=== PATIENT | male | born 1945 | race Caucasian/White ===

== ENCOUNTER → 2016-08-20 | Outpatient (CLI) | payer MEDICARE, BC, OTHER ==
[2016-08-20 11:17] LABS: HEMATOCRIT 27.6 % (37.9-51.0); HEMOGLOBIN 8.3 g/dL (13.5-17.0); HGB HCT DIFFERENCE -2.7; MEAN CORPUSCULAR HEMOGLOBIN 24.5 pg (27.0-33.4); MEAN CORPUSCULAR VOLUME 82 fl (80-97); RED BLOOD COUNT 3.38 10^6/uL (4.35-5.55); RED CELL DISTRIBUTION WIDTH 16.4 % (11.5-14.0); WHITE BLOOD COUNT 5.5 10^3/uL (4.0-10.5)
[2016-08-20 11:19] LABS: APPEARANCE,URINE CLEAR; BILIRUBIN,URINE NEGATIVE (NEGATIVE); GLUCOSE, URINE NEGATIVE (NEGATIVE); KETONES,URINE NEGATIVE (NEGATIVE); LEUKOCYTE ESTERASE,URINE NEGATIVE (NEGATIVE); NITRITE,URINE NEGATIVE (NEGATIVE); PROTEIN,URINE NEGATIVE (NEGATIVE); URINE SPECIFIC GRAVITY 1.018; UROBILINOGEN,URINE NEGATIVE mg/dL (<2.0)
[2016-08-20 11:52] LABS: ANION GAP 11 (5-19); BLOOD UREA NITROGEN 28 mg/dL (7-20); CALCIUM 9.5 mg/dL (8.4-10.2); CARBON DIOXIDE 30 mmol/L (22-30); CHLORIDE 100 mmol/L (98-107); CREATININE RESULT 1.49 mg/dL (0.52-1.25); GLUCOSE 96 mg/dL (75-110); POTASSIUM 4.6 mmol/L (3.6-5.0); SODIUM 140.8 mmol/L (137-145)
== END ==
LOC: OD 09:54
PROVIDERS: ATTEND Internal Medicine Nephrology
DX: E11.22 Type 2 diabetes mellitus with diabetic chronic kidney disease (principal); I12.9 Hypertensive chronic kidney disease with stage 1 through stage 4 chronic kidney disease, or unspecified chronic kidney disease; N18.3 Chronic kidney disease, stage 3 (moderate)
CPT/HCPCS: 36415; 80048; 81001; 85027

== ENCOUNTER → 2016-09-17 | Outpatient (CLI) | payer MEDICARE, BC, OTHER ==
[2016-09-17 11:24] LABS: ABSOLUTE BASOPHILS # (AUTO) 0.1 10^3/uL (0.0-0.2); ABSOLUTE EOSINOPHILS # (AUTO) 0.3 10^3/uL (0.0-0.6); ABSOLUTE LYMPHOCYTES (AUTO) 0.6 10^3/uL (0.5-4.7); ABSOLUTE MONOCYTES (AUTO) 0.4 10^3/uL (0.1-1.4); ABSOLUTE NEUT (AUTO) 3.7 10^3/uL (1.7-8.2); HEMATOCRIT 29.3 % (37.9-51.0); HEMOGLOBIN 9.4 g/dL (13.5-17.0); HGB HCT DIFFERENCE -1.1; LYMPHOCYTES % (AUTO) 12.6 % (13-45); MEAN CORPUSCULAR HEMOGLOBIN 26.7 pg (27.0-33.4); MONOCYTES % (AUTO) 7.3 % (3-13); RED BLOOD COUNT 3.51 10^6/uL (4.35-5.55); RED CELL DISTRIBUTION WIDTH 25.9 % (11.5-14.0); SEGMENTED NEUTROPHILS % (AUTO) 73.1 % (42-78)
[2016-09-17 11:49] LABS: MEAN CORPUSCULAR VOLUME 83 fl (80-97)
[2016-09-17 11:51] LABS: ANISOCYTOSIS 3+; OVALOCYTES 1+; POIKILOCYTOSIS 1+; POLYCHROMASIA 1+; TEAR DROP CELLS SLIGHT
== END ==
LOC: OD 09:58
PROVIDERS: ATTEND Internal Medicine
DX: D64.9 Anemia, unspecified (principal); K92.2 Gastrointestinal hemorrhage, unspecified
CPT/HCPCS: 36415; 85025

== ENCOUNTER → 2017-05-10 | Outpatient (CLI) | payer MEDICARE, BC, OTHER ==
[2017-05-10 11:12] LABS: ABSOLUTE BASOPHILS # (AUTO) 0.1 10^3/uL (0.0-0.2); ABSOLUTE EOSINOPHILS # (AUTO) 0.3 10^3/uL (0.0-0.6); ABSOLUTE LYMPHOCYTES (AUTO) 0.7 10^3/uL (0.5-4.7); ABSOLUTE MONOCYTES (AUTO) 0.3 10^3/uL (0.1-1.4); ABSOLUTE NEUT (AUTO) 3.2 10^3/uL (1.7-8.2); BASOPHILS % (AUTO) 1.3 % (0-2); EOSINOPHILS % (AUTO) 6.6 % (0-6); HEMATOCRIT 33.3 % (37.9-51.0); HEMOGLOBIN 11.2 g/dL (13.5-17.0); HGB HCT DIFFERENCE 0.3; LYMPHOCYTES % (AUTO) 15.4 % (13-45); MEAN CORPUSCULAR HEMOGLOBIN 29.2 pg (27.0-33.4); MEAN CORPUSCULAR HGB CONC 33.7 g/dL (32.0-36.0); MEAN CORPUSCULAR VOLUME 87 fl (80-97); MONOCYTES % (AUTO) 6.5 % (3-13); RED BLOOD COUNT 3.85 10^6/uL (4.35-5.55); RED CELL DISTRIBUTION WIDTH 13.9 % (11.5-14.0); SEGMENTED NEUTROPHILS % (AUTO) 70.2 % (42-78); WHITE BLOOD COUNT 4.5 10^3/uL (4.0-10.5)
[2017-05-10 11:31] LABS: ALANINE AMINOTRANSFERASE 32 U/L (21-72); ALBUMIN 4.2 g/dL (3.5-5.0); ALKALINE PHOSPHATASE 36 U/L (38-126); ANION GAP 9 (5-19); ASPARTATE AMINO TRANSFERASE 22 U/L (17-59); BILIRUBIN,DIRECT 0.4 mg/dL (0.0-0.4); BILIRUBIN,TOTAL 0.4 mg/dL (0.2-1.3); BLOOD UREA NITROGEN 30 mg/dL (7-20); CALCIUM 10.1 mg/dL (8.4-10.2); CARBON DIOXIDE 30 mmol/L (22-30); CHLORIDE 103 mmol/L (98-107); CHOLESTEROL 127.54 mg/dL (0-200); CREATININE RESULT 1.07 mg/dL (0.52-1.25); Direct HDL 31 mg/dL (>40); GLUCOSE 156 mg/dL (75-110); POTASSIUM 4.9 mmol/L (3.6-5.0); SODIUM 141.7 mmol/L (137-145); TOTAL PROTEIN 6.8 g/dL (6.3-8.2); TRIGLYCERIDES 122 mg/dL (<150)
[2017-05-10 11:51] LABS: DIRECT LDL 86 mg/dL (<100)
== END ==
LOC: OD 10:04
PROVIDERS: ATTEND Internal Medicine
DX: E11.9 Type 2 diabetes mellitus without complications (principal); N18.9 Chronic kidney disease, unspecified; D64.9 Anemia, unspecified; E78.5 Hyperlipidemia, unspecified; I25.10 Atherosclerotic heart disease of native coronary artery without angina pectoris
CPT/HCPCS: 36415; 80053; 80061; 82043; 83036; 84443; 85025

== ENCOUNTER 2017-06-29 08:07 | Outpatient (CLI) | payer MEDICARE, BC, OTHER ==
[~2017-06-29 08:07] MED LIST: FERUMOXYTOL (NON-ESRD) 510 MG/NS 100 ML IV PRN; NORMAL SALINE 250 ML IV PRN
[2017-06-29 08:38] VITALS: BP 163/56
== END 2017-06-29 09:53 | disposition home or self-care (01) ==
LOC: II 08:07 → 5TH 08:33 → II 09:53
PROVIDERS: ATTEND Internal Medicine
PROC: 3E033GC Introduction of Other Therapeutic Substance into Peripheral Vein, Percutaneous Approach (ICD-10-PCS; principal; 2017-06-29)
DX: D50.0 Iron deficiency anemia secondary to blood loss (chronic) (principal); N18.2 Chronic kidney disease, stage 2 (mild)
CPT/HCPCS: 96365; Q0138

== ENCOUNTER 2017-07-07 13:29 | Outpatient (CLI) | payer MEDICARE, BC, OTHER ==
[2017-07-07 14:23] VITALS: BP 148/68
== END 2017-07-07 14:26 | disposition home or self-care (01) ==
LOC: II 13:29 → 5TH 13:34 → II 14:26
PROVIDERS: ATTEND Internal Medicine
PROC: 3E033GC Introduction of Other Therapeutic Substance into Peripheral Vein, Percutaneous Approach (ICD-10-PCS; principal; 2017-07-07)
DX: D50.0 Iron deficiency anemia secondary to blood loss (chronic) (principal); N18.2 Chronic kidney disease, stage 2 (mild); Q27.33 Arteriovenous malformation of digestive system vessel; Z90.5 Acquired absence of kidney; Z85.528 Personal history of other malignant neoplasm of kidney
CPT/HCPCS: 96365; Q0138

== ENCOUNTER → 2017-08-23 | Outpatient (CLI) | payer MEDICARE, BC, OTHER ==
[2017-08-23 10:53] LABS: APPEARANCE,URINE CLEAR; BILIRUBIN,URINE NEGATIVE (NEGATIVE); COLOR,URINE YELLOW; GLUCOSE, URINE 50 mg/dL (NEGATIVE); HEMATOCRIT 30.2 % (37.9-51.0); HEMOGLOBIN 10.1 g/dL (13.5-17.0); KETONES,URINE NEGATIVE (NEGATIVE); LEUKOCYTE ESTERASE,URINE NEGATIVE (NEGATIVE); MEAN CORPUSCULAR HEMOGLOBIN 27.9 pg (27.0-33.4); MEAN CORPUSCULAR HGB CONC 33.6 g/dL (32.0-36.0); MEAN CORPUSCULAR VOLUME 83 fl (80-97); NITRITE,URINE NEGATIVE (NEGATIVE); PLATELET COUNT 311 10^3/uL (150-450); PROTEIN,URINE NEGATIVE (NEGATIVE); RED BLOOD COUNT 3.63 10^6/uL (4.35-5.55); RED CELL DISTRIBUTION WIDTH 14.2 % (11.5-14.0); URINE SPECIFIC GRAVITY 1.019; UROBILINOGEN,URINE NEGATIVE mg/dL (<2.0)
[2017-08-23 11:23] LABS: ANION GAP 10 (5-19); BLOOD UREA NITROGEN 25 mg/dL (7-20); CALCIUM 10.1 mg/dL (8.4-10.2); CARBON DIOXIDE 28 mmol/L (22-30); CHLORIDE 104 mmol/L (98-107); GLUCOSE 119 mg/dL (75-110); POTASSIUM 4.7 mmol/L (3.6-5.0); SODIUM 141.8 mmol/L (137-145)
== END ==
LOC: OD 09:57
PROVIDERS: ATTEND Internal Medicine Nephrology
DX: I12.9 Hypertensive chronic kidney disease with stage 1 through stage 4 chronic kidney disease, or unspecified chronic kidney disease (principal); N18.3 Chronic kidney disease, stage 3 (moderate); E11.9 Type 2 diabetes mellitus without complications; D64.9 Anemia, unspecified
CPT/HCPCS: 36415; 80048; 81001; 85027

== ENCOUNTER → 2017-11-01 | Outpatient (CLI) | payer MEDICARE, BC, OTHER ==
--- NOTE | 2017-11-01 13:34 | RADIOLOGY REPORT (SQ) ---
EXAM DESCRIPTION: CTA ABD AORTA AND EXTREMITY COMPLETED DATE/TIME: 11/01/2017 1:07 pm REASON FOR STUDY: UNSPECIFIED ATHEROSCLEROSIS (I70.90) I70.90 UNSPECIFIED ATHEROSCLEROSIS COMPARISON: None. TECHNIQUE: CT scan of the body and lower extremities performed with intravenous contrast using helic al scanning technique with dynamic intravenous contrast injection. Images reviewed with lung, soft ti ssue, and bone windows. Reconstructed coronal and sagittal MPR images reviewed. All images stored on PACS. Advanced 3D imaging as volume-rendering, MIPs, SSD performed? yes All CT scanners at this facility use dose modulation, iterative reconstruction, and/or weight based d osing when appropriate to reduce radiation dose to as low as reasonably achievable (ALARA). [facility]: Dose Right [facility]: CareDose [facility]: Dose Right [facility]: Teradose 4D [facility]: [employer] CONTRAST TYPE AND DOSE: contrast/concentration: Isovue 370.00 mg/ml; Total Contrast Delivered: 100.0 ml; Total Saline Delivered: 100.0 ml RENAL FUNCTION: GFR 58. LIMITATIONS: None. FINDINGS: AORTA AND VESSELS: Extensive vascular calcifications. No evidence of aortic aneurysm. Di ffuse severe disease in the iliac bifurcation and external iliac arteries, continuing into the lower extremities. Moderate -severe diffuse disease in the femoral arteries with associated collateral ves sels. Three-vessel runoff with extensive small vessel disease RIGHT KIDNEY AND URETER: No mass, calculi or urinary tract obstruction. LEFT KIDNEY AND URETER: No mass, calculi or urinary tract obstruction. RETROPERITONEUM: No retroperitoneal adenopathy, hemorrhage or masses. BOWEL AND PERITONEAL CAVITY: No masses or inflammatory changes. No free fluid or peritoneal masses. APPENDIX: Not visualized. ABDOMINAL WALL: No masses. No hernias. BONY STRUCTURES: No acute findings. 3-D IMAGING: Confirms the above findings. OTHER: No other significant finding. IMPRESSION: Moderate to severe diffuse disease in the iliac bifurcation and runoff. Collateral vess els in the thigh bilaterally. Extensive small vessel disease. TECHNICAL DOCUMENTATION: JOB ID: [id number] Quality ID # [id number]: Final reports with documentation of one or more dose reduction techniques (e.g., Au tomated exposure control, adjustment of the mA and/or kV according to patient size, use of iterative reconstruction technique) 2010 [employer]- All Rights Reserved Reading location - IP/workstation name: [email or web address]
== END ==
LOC: RAD 12:17
PROVIDERS: ATTEND Surgery Vascular Surgery
DX: I70.303 Unspecified atherosclerosis of unspecified type of bypass graft(s) of the extremities, bilateral legs (principal); E11.9 Type 2 diabetes mellitus without complications; I10 Essential (primary) hypertension; E78.5 Hyperlipidemia, unspecified
CPT/HCPCS: 75635

== ENCOUNTER → 2017-11-10 | Outpatient (CLI) | payer MEDICARE, BC, OTHER ==
[2017-11-10 14:31] LABS: ANION GAP 6 (5-19); BLOOD UREA NITROGEN 30 mg/dL (7-20); CALCIUM 9.7 mg/dL (8.4-10.2); CARBON DIOXIDE 30 mmol/L (22-30); CHLORIDE 102 mmol/L (98-107); GLUCOSE 232 mg/dL (75-110); POTASSIUM 4.6 mmol/L (3.6-5.0); SODIUM 138.2 mmol/L (137-145)
== END ==
LOC: OD 13:51
PROVIDERS: ATTEND Physician Assistant Surgical
DX: Z01.812 Encounter for preprocedural laboratory examination (principal); I70.90 Unspecified atherosclerosis; I10 Essential (primary) hypertension
CPT/HCPCS: 36415; 80048

== ENCOUNTER → 2018-03-23 | Outpatient (CLI) | payer MEDICARE, BC, OTHER ==
[2018-03-23 11:41] LABS: CHOLESTEROL 127.55 mg/dL (0-200); TRIGLYCERIDES 145 mg/dL (<150)
[2018-03-23 11:52] LABS: DIRECT LDL 73 mg/dL (<100)
[2018-03-24 12:39] LABS: CREATININE URINE 92.3 mg/dL (Not Estab.); MICROALBUMIN URINE 20.1 ug/mL (Not Estab.)
== END ==
LOC: OD 10:03
PROVIDERS: ATTEND Internal Medicine
DX: E11.21 Type 2 diabetes mellitus with diabetic nephropathy (principal); D64.9 Anemia, unspecified; E55.9 Vitamin D deficiency, unspecified; R10.9 Unspecified abdominal pain
CPT/HCPCS: 36415; 80061; 82043; 82306; 82570; 83036

== ENCOUNTER → 2018-05-29 | Outpatient (CLI) | payer MEDICARE, BC, OTHER ==
[2018-05-29 10:42] LABS: CHOLESTEROL 134.88 mg/dL (0-200); TRIGLYCERIDES 184 mg/dL (<150)
[2018-05-29 10:53] LABS: DIRECT LDL 82 mg/dL (<100)
[2018-05-29 10:58] LABS: VLDL CHOLESTEROL 36.8 mg/dL (10-31)
== END ==
LOC: OD 09:45
PROVIDERS: ATTEND Internal Medicine
DX: E55.9 Vitamin D deficiency, unspecified (principal); E11.9 Type 2 diabetes mellitus without complications; E78.5 Hyperlipidemia, unspecified
CPT/HCPCS: 36415; 80061; 82306; 83036

== ENCOUNTER 2018-08-07 15:08 | Outpatient (CLI) | payer MEDICARE, BC, OTHER ==
[2018-08-07 15:58] LABS: HEMATOCRIT 19.8 % (37.9-51.0); MEAN CORPUSCULAR HEMOGLOBIN 26.2 pg (27.0-33.4); MEAN CORPUSCULAR HGB CONC 33.1 g/dL (32.0-36.0); MEAN CORPUSCULAR VOLUME 79 fl (80-97); PLATELET COUNT 292 10^3/uL (150-450); RED BLOOD COUNT 2.49 10^6/uL (4.35-5.55); RED CELL DISTRIBUTION WIDTH 18.9 % (11.5-14.0); WHITE BLOOD COUNT 4.9 10^3/uL (4.0-10.5)
[2018-08-07 16:02] LABS: HEMOGLOBIN 6.5 g/dL (13.5-17.0)
[2018-08-07] MEDS ORDERED: NORMAL SALINE 1000 ML 1,000 ML IV PRN (16:02)
[2018-08-07] MEDS ORDERED: FUROSEMIDE INJ/PF 40 MG/4 ML SDV IV PRN (16:30)
[2018-08-07] MEDS ORDERED: ACETAMINOPHEN 325 MG TABLET PO PRN (16:49)
[2018-08-07] MEDS ORDERED: DIPHENHYDRAMINE HCL 50 MG CAPSULE PO PRN (16:50)
[2018-08-07 22:29] VITALS: BP 117/42
[2018-08-07 23:59] LABS: HEMATOCRIT 23.2 % (37.9-51.0); MEAN CORPUSCULAR HEMOGLOBIN 25.9 pg (27.0-33.4); MEAN CORPUSCULAR HGB CONC 32.5 g/dL (32.0-36.0); MEAN CORPUSCULAR VOLUME 80 fl (80-97); PLATELET COUNT 243 10^3/uL (150-450); RED BLOOD COUNT 2.91 10^6/uL (4.35-5.55); RED CELL DISTRIBUTION WIDTH 17.6 % (11.5-14.0); WHITE BLOOD COUNT 4.2 10^3/uL (4.0-10.5)
[2018-08-08 00:16] LABS: HEMOGLOBIN 7.5 g/dL (13.5-17.0)
== END 2018-08-07 23:50 | disposition home or self-care (01) ==
LOC: II 15:08 → 3S 15:10 → II 23:50
PROVIDERS: ATTEND Internal Medicine
PROC: 30233N1 Transfusion of Nonautologous Red Blood Cells into Peripheral Vein, Percutaneous Approach (ICD-10-PCS; principal; 2018-08-07)
PROC: 3E033GC Introduction of Other Therapeutic Substance into Peripheral Vein, Percutaneous Approach (ICD-10-PCS; 2018-08-07)
DX: D64.9 Anemia, unspecified (principal)
CPT/HCPCS: 86900; 86901; 36415; 36430; 86850; 85025; 85027; 86920; P9016; A9270 ×2; J1940; 96374

== ENCOUNTER → 2018-08-07 | Outpatient (CLI) | payer MEDICARE, BC, OTHER ==
[2018-08-07 12:11] LABS: ABSOLUTE BASOPHILS # (AUTO) 0.1 10^3/uL (0.0-0.2); ABSOLUTE EOSINOPHILS # (AUTO) 0.4 10^3/uL (0.0-0.6); ABSOLUTE MONOCYTES (AUTO) 0.4 10^3/uL (0.1-1.4); ABSOLUTE NEUT (AUTO) 3.8 10^3/uL (1.7-8.2); EOSINOPHILS % (AUTO) 7.2 % (0-6); HEMATOCRIT 20.3 % (37.9-51.0); LYMPHOCYTES % (AUTO) 17.1 % (13-45); MEAN CORPUSCULAR HEMOGLOBIN 26.1 pg (27.0-33.4); MEAN CORPUSCULAR HGB CONC 32.7 g/dL (32.0-36.0); MEAN CORPUSCULAR VOLUME 80 fl (80-97); MONOCYTES % (AUTO) 7.6 % (3-13); PLATELET COUNT 307 10^3/uL (150-450); RED BLOOD COUNT 2.55 10^6/uL (4.35-5.55); RED CELL DISTRIBUTION WIDTH 18.5 % (11.5-14.0); SEGMENTED NEUTROPHILS % (AUTO) 67.1 % (42-78); TOTAL CELLS COUNTED % (AUTO) 100 %; WHITE BLOOD COUNT 5.7 10^3/uL (4.0-10.5)
[2018-08-07 13:10] LABS: HEMOGLOBIN 6.6 g/dL (13.5-17.0)
== END ==
LOC: OD 11:09
PROVIDERS: ATTEND Internal Medicine
DX: D64.9 Anemia, unspecified (principal)
CPT/HCPCS: 36415; 85025

== ENCOUNTER → 2018-08-09 | Outpatient (CLI) | payer MEDICARE, BC, OTHER ==
[2018-08-09 13:21] LABS: ABSOLUTE BASOPHILS # (AUTO) 0.1 10^3/uL (0.0-0.2); ABSOLUTE EOSINOPHILS # (AUTO) 0.3 10^3/uL (0.0-0.6); ABSOLUTE LYMPHOCYTES (AUTO) 0.8 10^3/uL (0.5-4.7); ABSOLUTE MONOCYTES (AUTO) 0.4 10^3/uL (0.1-1.4); ABSOLUTE NEUT (AUTO) 4.4 10^3/uL (1.7-8.2); BASOPHILS % (AUTO) 0.9 % (0-2); EOSINOPHILS % (AUTO) 5.7 % (0-6); HEMATOCRIT 25.8 % (37.9-51.0); HEMOGLOBIN 8.4 g/dL (13.5-17.0); LYMPHOCYTES % (AUTO) 13.9 % (13-45); MEAN CORPUSCULAR HEMOGLOBIN 25.6 pg (27.0-33.4); MEAN CORPUSCULAR HGB CONC 32.5 g/dL (32.0-36.0); MEAN CORPUSCULAR VOLUME 79 fl (80-97); MONOCYTES % (AUTO) 6.6 % (3-13); PLATELET COUNT 306 10^3/uL (150-450); RED BLOOD COUNT 3.28 10^6/uL (4.35-5.55); SEGMENTED NEUTROPHILS % (AUTO) 72.9 % (42-78); TOTAL CELLS COUNTED % (AUTO) 100 %
== END ==
LOC: OD 12:36
PROVIDERS: ATTEND Internal Medicine
DX: D64.9 Anemia, unspecified (principal)
CPT/HCPCS: 36415; 85025

== ENCOUNTER → 2018-08-15 | Outpatient (CLI) | payer MEDICARE, BC, OTHER ==
[2018-08-15 09:20] LABS: APPEARANCE,URINE CLEAR; BILIRUBIN,URINE NEGATIVE (NEGATIVE); COLOR,URINE YELLOW; GLUCOSE, URINE 150 mg/dL (NEGATIVE); KETONES,URINE NEGATIVE (NEGATIVE); LEUKOCYTE ESTERASE,URINE NEGATIVE (NEGATIVE); NITRITE,URINE NEGATIVE (NEGATIVE); PROTEIN,URINE NEGATIVE (NEGATIVE); URINE SPECIFIC GRAVITY 1.023; UROBILINOGEN,URINE NEGATIVE mg/dL (<2.0)
[2018-08-15 09:23] LABS: HEMATOCRIT 29.3 % (37.9-51.0); HEMOGLOBIN 9.7 g/dL (13.5-17.0); MEAN CORPUSCULAR VOLUME 79 fl (80-97); PLATELET COUNT 287 10^3/uL (150-450); RED BLOOD COUNT 3.73 10^6/uL (4.35-5.55); RED CELL DISTRIBUTION WIDTH 17.2 % (11.5-14.0); WHITE BLOOD COUNT 6.1 10^3/uL (4.0-10.5)
[2018-08-15 09:47] LABS: ANION GAP 8 (5-19); BLOOD UREA NITROGEN 32 mg/dL (7-20); CARBON DIOXIDE 30 mmol/L (22-30); CHLORIDE 102 mmol/L (98-107); GLUCOSE 187 mg/dL (75-110); POTASSIUM 5.1 mmol/L (3.6-5.0); SODIUM 140.4 mmol/L (137-145)
== END ==
LOC: OD 08:21
PROVIDERS: ATTEND Internal Medicine Nephrology
DX: I12.9 Hypertensive chronic kidney disease with stage 1 through stage 4 chronic kidney disease, or unspecified chronic kidney disease (principal); N18.3 Chronic kidney disease, stage 3 (moderate); E11.22 Type 2 diabetes mellitus with diabetic chronic kidney disease; D64.9 Anemia, unspecified
CPT/HCPCS: 36415; 80048; 81001; 85027

== ENCOUNTER → 2018-08-26 | Outpatient (CLI) | payer MEDICARE, BC, OTHER ==
[2018-08-26 09:36] LABS: ALANINE AMINOTRANSFERASE 26 U/L (21-72); ALBUMIN 4.1 g/dL (3.5-5.0); ALKALINE PHOSPHATASE 43 U/L (38-126); ANION GAP 7 (5-19); ASPARTATE AMINO TRANSFERASE 20 U/L (17-59); BILIRUBIN,DIRECT 0.2 mg/dL (0.0-0.4); BILIRUBIN,TOTAL 0.3 mg/dL (0.2-1.3); BLOOD UREA NITROGEN 34 mg/dL (7-20); CARBON DIOXIDE 29 mmol/L (22-30); CHLORIDE 104 mmol/L (98-107); CHOLESTEROL 128.07 mg/dL (0-200); GLUCOSE 149 mg/dL (75-110); POTASSIUM 5.3 mmol/L (3.6-5.0); SODIUM 139.8 mmol/L (137-145); TOTAL PROTEIN 6.6 g/dL (6.3-8.2); TRIGLYCERIDES 244 mg/dL (<150)
[2018-08-26 09:47] LABS: DIRECT LDL 80 mg/dL (<100)
[2018-08-26 09:55] LABS: VLDL CHOLESTEROL 48.8 mg/dL (10-31)
[2018-08-28 03:36] LABS: CREATININE URINE 106.6 mg/dL (Not Estab.); MICROALBUMIN URINE 6.4 ug/mL (Not Estab.)
== END ==
LOC: OD 08:45
PROVIDERS: ATTEND Internal Medicine
DX: E61.1 Iron deficiency (principal); E78.5 Hyperlipidemia, unspecified; E11.9 Type 2 diabetes mellitus without complications; R10.9 Unspecified abdominal pain
CPT/HCPCS: 36415; 80053; 80061; 82043; 82570; 83036

== ENCOUNTER → 2018-09-13 | Outpatient (CLI) | payer MEDICARE, BC, OTHER ==
[2018-09-13 17:12] LABS: ABSOLUTE BASOPHILS # (AUTO) 0.1 10^3/uL (0.0-0.2); ABSOLUTE EOSINOPHILS # (AUTO) 0.3 10^3/uL (0.0-0.6); ABSOLUTE LYMPHOCYTES (AUTO) 0.8 10^3/uL (0.5-4.7); ABSOLUTE MONOCYTES (AUTO) 0.4 10^3/uL (0.1-1.4); ABSOLUTE NEUT (AUTO) 3.4 10^3/uL (1.7-8.2); BASOPHILS % (AUTO) 1.2 % (0-2); HEMATOCRIT 28.9 % (37.9-51.0); HEMOGLOBIN 9.4 g/dL (13.5-17.0); LYMPHOCYTES % (AUTO) 17.2 % (13-45); MEAN CORPUSCULAR HEMOGLOBIN 27.2 pg (27.0-33.4); MEAN CORPUSCULAR HGB CONC 32.7 g/dL (32.0-36.0); MONOCYTES % (AUTO) 7.8 % (3-13); PLATELET COUNT 287 10^3/uL (150-450); RED BLOOD COUNT 3.47 10^6/uL (4.35-5.55); RED CELL DISTRIBUTION WIDTH 19.2 % (11.5-14.0); SEGMENTED NEUTROPHILS % (AUTO) 67.8 % (42-78); TOTAL CELLS COUNTED % (AUTO) 100 %; WHITE BLOOD COUNT 4.9 10^3/uL (4.0-10.5)
[2018-09-14 09:52] LABS: MEAN CORPUSCULAR VOLUME 83 fl (80-97)
== END ==
LOC: OD 16:07
PROVIDERS: ATTEND Internal Medicine
DX: D64.9 Anemia, unspecified (principal)
CPT/HCPCS: 36415; 85025

== ENCOUNTER → 2018-09-20 | Outpatient (CLI) | payer MEDICARE, BC, OTHER ==
[2018-09-20 12:23] LABS: ANION GAP 8 (5-19); BLOOD UREA NITROGEN 28 mg/dL (7-20); CALCIUM 9.9 mg/dL (8.4-10.2); CARBON DIOXIDE 31 mmol/L (22-30); CHLORIDE 102 mmol/L (98-107); GLUCOSE 178 mg/dL (75-110); POTASSIUM 4.7 mmol/L (3.6-5.0); SODIUM 140.5 mmol/L (137-145)
== END ==
LOC: OD 11:21
PROVIDERS: ATTEND Internal Medicine
DX: E87.5 Hyperkalemia (principal); N19 Unspecified kidney failure
CPT/HCPCS: 36415; 80048

== ENCOUNTER → 2019-01-10 | Outpatient (CLI) | payer MEDICARE, BC, OTHER ==
--- NOTE | 2019-01-10 13:42 | RADIOLOGY REPORT (SQ) ---
EXAM DESCRIPTION: NM GASTRIC EMPTYING STUDY COMPLETED DATE/TIME: 01/10/2019 1:21 pm REASON FOR STUDY: GASTROPARESIS (K31.84) K31.84 GASTROPARESIS COMPARISON: None. RADIONUCLIDE AND DOSE: 2 millicuries Tc-99m Sulfur Colloid. Egg salad sandwich The route of agent administration: Oral. TECHNIQUE: 1 minute serial static imaging performed at time of meal, 1 hour, 2 hours, 3 hours, and 4 hours as needed. Once stomach reaches 90% emptying, the test is complete. Image intensity values pl otted with respect to time with linear regression algorithm. LIMITATIONS: None. FINDINGS: Patient was observed for 4 hours. Immediate post meal serves as baseline. Gastric emptying at 30 minutes was 13.4%. Gastric emptying at 60 minutes was 26.8% Gastric emptying at 90 minutes was 40.2%. Gastric emptying at 120 minutes was 53.6%. Gastric emptying at 240 minutes was 100%. Normal values: 60 minutes: 30-90% retained. If less than 30%, abnormally rapid emptying. If greater than 90%, del ayed gastric emptying. 120 minutes: <60% retained. If greater than 60%, delayed gastric emptying. 240 minutes: <10% retained. If greater than 10%, delayed gastric emptying. IMPRESSION: NORMAL GASTRIC EMPTYING. TECHNICAL DOCUMENTATION: JOB ID: [id number] [employer]- All Rights Reserved rev Reading location - IP/workstation name: [email or web address]
== END ==
LOC: RAD 07:50
PROVIDERS: ATTEND Internal Medicine
DX: K31.84 Gastroparesis (principal)
CPT/HCPCS: 78264; A9541

== ENCOUNTER → 2019-02-01 | Outpatient (CLI) | payer MEDICARE, BC, OTHER ==
[2019-02-01 08:32] LABS: CHOLESTEROL 127.42 mg/dL (0-200); TRIGLYCERIDES 185 mg/dL (<150)
[2019-02-01 08:43] LABS: DIRECT LDL 88 mg/dL (<100)
== END ==
LOC: OD 07:29
PROVIDERS: ATTEND Internal Medicine
DX: E11.9 Type 2 diabetes mellitus without complications (principal); E78.5 Hyperlipidemia, unspecified
CPT/HCPCS: 36415; 80061; 83036

== ENCOUNTER → 2019-05-15 | Outpatient (CLI) | payer MEDICARE, BC, OTHER ==
[2019-05-15 09:46] LABS: ABSOLUTE BASOPHILS # (AUTO) 0.1 10^3/uL (0.0-0.2); ABSOLUTE EOSINOPHILS # (AUTO) 0.4 10^3/uL (0.0-0.6); ABSOLUTE LYMPHOCYTES (AUTO) 0.5 10^3/uL (0.5-4.7); ABSOLUTE MONOCYTES (AUTO) 0.3 10^3/uL (0.1-1.4); BASOPHILS % (AUTO) 1.3 % (0-2); EOSINOPHILS % (AUTO) 7.3 % (0-6); HEMATOCRIT 28.2 % (37.9-51.0); HEMOGLOBIN 9.4 g/dL (13.5-17.0); LYMPHOCYTES % (AUTO) 10.1 % (13-45); MEAN CORPUSCULAR HEMOGLOBIN 27.6 pg (27.0-33.4); MEAN CORPUSCULAR HGB CONC 33.4 g/dL (32.0-36.0); MEAN CORPUSCULAR VOLUME 83 fl (80-97); MONOCYTES % (AUTO) 6.5 % (3-13); PLATELET COUNT 317 10^3/uL (150-450); RED BLOOD COUNT 3.41 10^6/uL (4.35-5.55); SEGMENTED NEUTROPHILS % (AUTO) 74.8 % (42-78); TOTAL CELLS COUNTED % (AUTO) 100 %; WHITE BLOOD COUNT 5.3 10^3/uL (4.0-10.5)
[2019-05-15 10:10] LABS: ALBUMIN 4.4 g/dL (3.5-5.0); ALKALINE PHOSPHATASE 35 U/L (38-126); ANION GAP 9 (5-19); ASPARTATE AMINO TRANSFERASE 24 U/L (17-59); BILIRUBIN,DIRECT 0.2 mg/dL (0.0-0.4); BILIRUBIN,TOTAL 0.4 mg/dL (0.2-1.3); BLOOD UREA NITROGEN 33 mg/dL (7-20); CALCIUM 10.5 mg/dL (8.4-10.2); CARBON DIOXIDE 31 mmol/L (22-30); CHLORIDE 99 mmol/L (98-107); CHOLESTEROL 114.63 mg/dL (0-200); GLUCOSE 132 mg/dL (75-110); POTASSIUM 4.7 mmol/L (3.6-5.0); TOTAL PROTEIN 7.3 g/dL (6.3-8.2); TRIGLYCERIDES 137 mg/dL (<150)
[2019-05-15 10:21] LABS: DIRECT LDL 83 mg/dL (<100)
[2019-05-16 13:37] LABS: CREATININE URINE 140.7 mg/dL (Not Estab.); MICROALBUMIN URINE 14.2 ug/mL (Not Estab.)
== END ==
LOC: OD 08:55
PROVIDERS: ATTEND Family Medicine Geriatric Medicine
DX: E11.21 Type 2 diabetes mellitus with diabetic nephropathy (principal); I10 Essential (primary) hypertension; E78.5 Hyperlipidemia, unspecified; E66.9 Obesity, unspecified; Z79.899 Other long term (current) drug therapy
CPT/HCPCS: 36415; 80053; 80061; 82043; 82570; 83036; 84443; 85025

== ENCOUNTER → 2019-05-23 | Outpatient (CLI) | payer MEDICARE, BC, OTHER ==
--- NOTE | 2019-05-23 23:31 | XCELERA REPORT ---
[address] [address] Transthoracic Echocardiogram Report Name: LEIDA BLOUNT Age: 73 yrs Gender: Male : 1945 Patient Status: Outpatient Patient Location: Study Date: 05/23/2019 09:11 AM Height: 72 in Weight: 200 lb BSA: 2.1 m2 Procedure: A complete two-dimensional transthoracic echocardiogram was performed (2D, M-mode, spectral and color flow Doppler). The study was technically adequate with some images being suboptimal in quality. Reason For Study: SOB, CAD Ordering Physician: JESU RICO Performed By: Dieter Valencia Interpretation Summary The left ventricular ejection fraction is within normal limits. There is borderline concentric left ventricular hypertrophy. Doppler measurements suggest pseudonormalized left ventricular relaxation, which is associated with grade II/IV or mild to moderate diastolic dysfunction The left ventricle is grossly normal size. Wall motion cannot be accurately commented on, but no definite regional wall motion abnormalities noted. Borderline right ventricular enlargement. The right ventricular systolic function is normal. The left atrium is borderline dilated. The right atrium is normal. There is a trace to mild amount of mitral regurgitation There is no mitral valve stenosis. No aortic regurgitation is present. There is no aortic valve stenosis There is a mild amount of tricuspid regurgitation There is mild pulmonary hypertension by echo Right ventricular systolic pressure is estimated to be elevated at 30-40mmHg. There is no pericardial effusion. MMode/2D Measurements & Calculations RVDd: 3.2 cm LVIDd: 5.5 cm FS: 36.4 % Ao root diam: IVSd: 0.78 cm LVIDs: 3.5 cm EDV(Teich): 3.1 cm 150.3 ml Ao root area: LVPWd: 0.93 cm ESV(Teich): 7.5 cm2 51.8 ml LA dimension: EF(Teich): 65.5 % 4.2 cm LVLd ap4: 9.8 cm SV(MOD-sp4): EDV(MOD-sp4): 61.0 ml 102.0 ml LVLs ap4: 8.2 cm ESV(MOD-sp4): 41.0 ml EF(MOD-sp4): 59.8 % Doppler Measurements & Calculations MV E max nori: MV P1/2t max nori: Ao V2 max: LV V1 max P.9 cm/sec 91.6 cm/sec 155.7 cm/sec 8.5 mmHg MV A max nori: MV P1/2t: 87.7 msec Ao max PG: LV V1 max: 102.7 cm/sec MVA(P1/2t): 2.5 cm2 9.7 mmHg 145.6 cm/sec MV E/A: 0.82 MV dec slope: 306.2 cm/sec2 MV dec time: 0.31 sec PA V2 max: PI end-d nori: TR max nori: MV P1/2t-pr_phl: 160.4 cm/sec 125.5 cm/sec 269.5 cm/sec 87.7 msec PA max PG: TR max P.3 mmHg 29.1 mmHg Left Ventricle The left ventricle is grossly normal size. There is borderline concentric left ventricular hypertrophy. The left ventricular ejection fraction is within normal limits. Doppler measurements suggest pseudonormalized left ventricular relaxation, which is associated with grade II/IV or mild to moderate diastolic dysfunction. Wall motion cannot be accurately commented on, but no definite regional wall motion abnormalities noted. Right Ventricle Borderline right ventricular enlargement. There is normal right ventricular wall thickness. The right ventricular systolic function is normal. Atria The right atrium is normal. The left atrium is borderline dilated. Interarterial septum not well visualized and not well dopplered. Cannot comment on ASD/PFO presence. Mitral Valve The mitral valve is grossly normal. There is no mitral valve stenosis. There is a trace to mild amount of mitral regurgitation. Aortic Valve The aortic valve is grossly normal. There is no aortic valve stenosis. No aortic regurgitation is present. Tricuspid Valve The tricuspid valve is not well visualized, but is grossly normal. There is no tricuspid stenosis. There is a mild amount of tricuspid regurgitation. There is mild pulmonary hypertension by echo. Right ventricular systolic pressure is estimated to be elevated at 30-40mmHg. Pulmonic Valve The pulmonic valve is not well visualized. Great Vessels The aortic root is not well visualized but is probably normal size. The inferior vena cava appeared normal and decreased > 50% with respiration (RAP 5-10 mmHg). Effusions There is no pericardial effusion. : JESU RICO Shyamal
== END ==
LOC: SP 08:49
PROVIDERS: ATTEND Family Medicine Geriatric Medicine
DX: I25.10 Atherosclerotic heart disease of native coronary artery without angina pectoris (principal); R06.02 Shortness of breath
CPT/HCPCS: 93306

== ENCOUNTER → 2019-05-30 | Outpatient (CLI) | payer MEDICARE, BC, OTHER ==
[2019-05-30 07:58] LABS: ABSOLUTE BASOPHILS # (AUTO) 0.1 10^3/uL (0.0-0.2); ABSOLUTE EOSINOPHILS # (AUTO) 0.6 10^3/uL (0.0-0.6); ABSOLUTE LYMPHOCYTES (AUTO) 0.5 10^3/uL (0.5-4.7); ABSOLUTE MONOCYTES (AUTO) 0.4 10^3/uL (0.1-1.4); ABSOLUTE NEUT (AUTO) 3.7 10^3/uL (1.7-8.2); EOSINOPHILS % (AUTO) 11.5 % (0-6); HEMATOCRIT 26.7 % (37.9-51.0); HEMOGLOBIN 8.7 g/dL (13.5-17.0); LYMPHOCYTES % (AUTO) 10.4 % (13-45); MEAN CORPUSCULAR HGB CONC 32.8 g/dL (32.0-36.0); MEAN CORPUSCULAR VOLUME 86 fl (80-97); MONOCYTES % (AUTO) 6.9 % (3-13); PLATELET COUNT 334 10^3/uL (150-450); RED BLOOD COUNT 3.11 10^6/uL (4.35-5.55); RED CELL DISTRIBUTION WIDTH 19.8 % (11.5-14.0); SEGMENTED NEUTROPHILS % (AUTO) 70.2 % (42-78); TOTAL CELLS COUNTED % (AUTO) 100 %; WHITE BLOOD COUNT 5.3 10^3/uL (4.0-10.5)
[2019-05-30 08:14] LABS: ANION GAP 12 (5-19); BLOOD UREA NITROGEN 31 mg/dL (7-20); CALCIUM 10.2 mg/dL (8.4-10.2); CARBON DIOXIDE 28 mmol/L (22-30); CHLORIDE 103 mmol/L (98-107); GLUCOSE 125 mg/dL (75-110); POTASSIUM 4.3 mmol/L (3.6-5.0)
[2019-05-30 08:37] LABS: ANISOCYTOSIS 2+; PLATELET COMMENT ADEQUATE; POIKILOCYTOSIS SLIGHT; POLYCHROMASIA 1+; SCHISTOCYTES SLIGHT; TEAR DROP CELLS SLIGHT
== END ==
LOC: OD 07:21
PROVIDERS: ATTEND Family Medicine Geriatric Medicine
DX: E83.52 Hypercalcemia (principal); N18.3 Chronic kidney disease, stage 3 (moderate); D50.9 Iron deficiency anemia, unspecified; Z79.899 Other long term (current) drug therapy
CPT/HCPCS: 36415; 80048; 82306; 83970; 85025

== ENCOUNTER → 2019-06-27 | Outpatient (CLI) | payer MEDICARE, BC, OTHER ==
[~2019-06-27] MED LIST changes: +ALBUTEROL SULFATE 0.083% NEB 2.5 MG/3 ML AMPUL NEB ONE; -FERUMOXYTOL (NON-ESRD) 510 MG/NS 100 ML IV PRN; -NORMAL SALINE 250 ML IV PRN
== END ==
LOC: RT 12:30
PROVIDERS: ATTEND Family Medicine Geriatric Medicine
DX: J44.9 Chronic obstructive pulmonary disease, unspecified (principal)
CPT/HCPCS: 94729; 94727; 94060; 94761; A9270

== ENCOUNTER → 2019-08-14 | Outpatient (CLI) | payer MEDICARE, BC, OTHER ==
[2019-08-14 14:18] LABS: APPEARANCE,URINE CLEAR; BILIRUBIN,URINE NEGATIVE (NEGATIVE); COLOR,URINE YELLOW; GLUCOSE, URINE 150 mg/dL (NEGATIVE); KETONES,URINE NEGATIVE (NEGATIVE); LEUKOCYTE ESTERASE,URINE NEGATIVE (NEGATIVE); NITRITE,URINE NEGATIVE (NEGATIVE); PROTEIN,URINE NEGATIVE (NEGATIVE); URINE SPECIFIC GRAVITY 1.016; UROBILINOGEN,URINE NEGATIVE mg/dL (<2.0)
[2019-08-14 14:19] LABS: ABSOLUTE BASOPHILS # (AUTO) 0.1 10^3/uL (0.0-0.2); ABSOLUTE EOSINOPHILS # (AUTO) 0.3 10^3/uL (0.0-0.6); ABSOLUTE LYMPHOCYTES (AUTO) 0.9 10^3/uL (0.5-4.7); ABSOLUTE MONOCYTES (AUTO) 0.4 10^3/uL (0.1-1.4); ABSOLUTE NEUT (AUTO) 3.6 10^3/uL (1.7-8.2); BASOPHILS % (AUTO) 1.2 % (0-2); EOSINOPHILS % (AUTO) 5.8 % (0-6); HEMATOCRIT 22.3 % (37.9-51.0); LYMPHOCYTES % (AUTO) 16.9 % (13-45); MEAN CORPUSCULAR HEMOGLOBIN 27.5 pg (27.0-33.4); MEAN CORPUSCULAR HGB CONC 33.3 g/dL (32.0-36.0); MEAN CORPUSCULAR VOLUME 83 fl (80-97); MONOCYTES % (AUTO) 7.4 % (3-13); PLATELET COUNT 301 10^3/uL (150-450); SEGMENTED NEUTROPHILS % (AUTO) 68.7 % (42-78); TOTAL CELLS COUNTED % (AUTO) 100 %; WHITE BLOOD COUNT 5.3 10^3/uL (4.0-10.5)
[2019-08-14 14:35] LABS: ANION GAP 8 (5-19); BLOOD UREA NITROGEN 24 mg/dL (7-20); CALCIUM 9.6 mg/dL (8.4-10.2); CARBON DIOXIDE 27 mmol/L (22-30); CHLORIDE 101 mmol/L (98-107); GLUCOSE 211 mg/dL (75-110); POTASSIUM 4.5 mmol/L (3.6-5.0)
[2019-08-14 14:37] LABS: HEMOGLOBIN 7.4 g/dL (13.5-17.0)
== END ==
LOC: OD 13:02
PROVIDERS: ATTEND Internal Medicine Nephrology
DX: E11.22 Type 2 diabetes mellitus with diabetic chronic kidney disease (principal); N18.3 Chronic kidney disease, stage 3 (moderate); D64.9 Anemia, unspecified
CPT/HCPCS: 36415; 80048; 81001; 85025

== ENCOUNTER → 2019-10-04 | Outpatient (CLI) | payer MEDICARE, BC, OTHER ==
[2019-10-04 08:25] LABS: ABSOLUTE BASOPHILS # (AUTO) 0.1 10^3/uL (0.0-0.2); ABSOLUTE EOSINOPHILS # (AUTO) 0.6 10^3/uL (0.0-0.6); ABSOLUTE LYMPHOCYTES (AUTO) 0.6 10^3/uL (0.5-4.7); ABSOLUTE MONOCYTES (AUTO) 0.4 10^3/uL (0.1-1.4); ABSOLUTE NEUT (AUTO) 4.5 10^3/uL (1.7-8.2); BASOPHILS % (AUTO) 1.2 % (0-2); EOSINOPHILS % (AUTO) 9.1 % (0-6); HEMATOCRIT 28.8 % (37.9-51.0); MEAN CORPUSCULAR HEMOGLOBIN 26.4 pg (27.0-33.4); MEAN CORPUSCULAR HGB CONC 33.6 g/dL (32.0-36.0); MEAN CORPUSCULAR VOLUME 79 fl (80-97); MONOCYTES % (AUTO) 6.4 % (3-13); PLATELET COUNT 343 10^3/uL (150-450); RED BLOOD COUNT 3.67 10^6/uL (4.35-5.55); RED CELL DISTRIBUTION WIDTH 20.2 % (11.5-14.0); SEGMENTED NEUTROPHILS % (AUTO) 73.3 % (42-78); TOTAL CELLS COUNTED % (AUTO) 100 %; WHITE BLOOD COUNT 6.2 10^3/uL (4.0-10.5)
[2019-10-04 08:40] LABS: ALBUMIN 4.5 g/dL (3.5-5.0); ALKALINE PHOSPHATASE 36 U/L (38-126); ANION GAP 7 (5-19); ASPARTATE AMINO TRANSFERASE 21 U/L (17-59); BILIRUBIN,DIRECT 0.1 mg/dL (0.0-0.4); BILIRUBIN,TOTAL 0.4 mg/dL (0.2-1.3); BLOOD UREA NITROGEN 26 mg/dL (7-20); CALCIUM 10.4 mg/dL (8.4-10.2); CARBON DIOXIDE 29 mmol/L (22-30); CHLORIDE 104 mmol/L (98-107); GLUCOSE 116 mg/dL (75-110); HEMOGLOBIN 9.7 g/dL (13.5-17.0); TOTAL PROTEIN 7.4 g/dL (6.3-8.2); TRIGLYCERIDES 213 mg/dL (<150)
[2019-10-04 08:52] LABS: DIRECT LDL 170 mg/dL (<100)
[2019-10-04 08:57] LABS: VLDL CHOLESTEROL 42.6 mg/dL (10-31)
== END ==
LOC: OD 07:11
PROVIDERS: ATTEND Family Medicine Geriatric Medicine
DX: D50.9 Iron deficiency anemia, unspecified (principal); E78.5 Hyperlipidemia, unspecified; E11.21 Type 2 diabetes mellitus with diabetic nephropathy; J44.9 Chronic obstructive pulmonary disease, unspecified; Z79.899 Other long term (current) drug therapy
CPT/HCPCS: 36415; 80053; 80061; 82043; 82570; 85025

== ENCOUNTER 2019-10-30 13:47 | Observation (INO) | payer MEDICARE, BC, OTHER ==
--- NOTE | 2019-10-30 14:10 | ER Document Report ---
ED Medical Screen (RME) - General Stated Complaint: CHEST PAIN Time Seen by Provider: 10/30/19 14:03 Primary Care Provider: JESU RICO MD [Primary Care Provider] - Follow up as needed Information source: Patient Notes: Patient presents complaining of midsternal chest pain off and on for the past 3 days. Patient states he took nitroglycerin around 1130 and his pain eased off. Patient does state he had 3 cardiac stents placed last week at [facility]. Patient states that he did receive a blood transfusion as well due to a GI bleed. Patient states that he has had continued dark sto ols. Patient does report shortness of breath. Patient is pale. I have greeted and performed a rapid initial assessment of this patient. A comprehensive ED assessment and evaluation of the patient, analysis of test results and completion of the medical decision making process will be conducted by additional ED providers. TRAVEL OUTSIDE OF THE [place] IN LAST 30 DAYS: No - Related Data Allergies/Adverse Reactions: Sulfa (Sulfonamide Antibiotics) Allergy (Unknown, Verified 06/19/16 01:53) Past Medical History - Past Medical History Cardiac Medical History: Reports: Hx Hypercholesterolemia, Hx Hypertension Denies: Hx Congestive Heart Failure, Hx Heart Attack Pulmonary Medical History: Denies: Hx Asthma, Hx Bronchitis, Hx COPD, Hx Pneumonia, Hx Tuberculosis Neurological Medical History: Reports: Hx Cerebrovascular Accident - 1993, TIA. Denies: Hx Seizures, Hx Parkinson's Disease Endocrine Medical History: Reports: Hx Diabetes Mellitus Type 2 Renal/ Medical History: Reports: Hx Benign Prostatic Hyperplasia, Hx Kidney Stones, Hx Renal Insufficiency. Denies: Hx End Stage Renal Disease Malignancy Medical History: Reports Hx Renal (Kidney) Cancer GI Medical History: Reports: Hx Gastroesophageal Reflux Disease. Denies: Hx Cirrhosis, Hx Ulcer Musculoskeltal Medical History: Denies Hx Arthritis, Denies Hx Multiple Sclerosis Psychiatric Medical History: Denies: Hx Bipolar Disorder, Hx Depression, Hx Schizophrenia Past Surgical History: Reports: Hx Abdominal Surgery - APPENDIX, Hx Appendectomy, Hx Kidney (Renal Surgery) - Partial left nephrectomy for renal cell carcinoma, Hx Vascular Surgery - Right leg stents. Denies: Hx Adenoidectomy - Immunizations Hx Diphtheria, Pertussis, Tetanus Vaccination: No Physical Exam - Vital signs Vitals: Temp Pulse Resp BP Pulse Ox 98.2 F 100 16 132/49 H 97 10/30/19 14:04 10/30/19 14:04 10/30/19 14:04 10/30/19 14:04 10/30/19 14:04 - General General appearance: Alert Notes: Skin pale - Cardiovascular Rhythm: Regular Heart sounds: S1 appreciated, S2 appreciated Course - Vital Signs Vital signs: Temp Pulse Resp BP Pulse Ox 98.2 F 100 16 132/49 H 97 10/30/19 14:04 10/30/19 14:04 10/30/19 14:04 10/30/19 14:04 10/30/19 14:04 Doctor's Discharge - Discharge Referrals: JESU RICO MD [Primary Care Provider] - Follow up as needed
--- NOTE | 2019-10-30 14:36 | ER Document Report ---
ED General - General Chief Complaint: Chest Pain Stated Complaint: CHEST PAIN Time Seen by Provider: 10/30/19 14:03 Primary Care Provider: JESU RICO MD [Primary Care Provider] - Follow up as needed Notes: Patient is a 74-year-old white male with a past medical history of extensive cardiovascular disease with 7 prior stents, 3 of which were placed last Tuesday at [place] by Dr. Maldonado, his pediatric speech therapist who presents to the emergency department the chief complaint of chest pain. He states it began about 30 minutes prior to arrival. He states however since discharge from the hospital for his stenting he has had chest pain and dyspnea on exertion intermittently. He states he is taken several nitroglycerin since last night which does improve the pain. He also admits to feeling as if his hemoglobin is low. He states that while admitted in [place] for stenting he had to have 1 unit of blood to increase his hemoglobin from around 7.4 to around 8.4. He states he receives iron infusions normally. He denies ever having an TX or CABG. Admits to stents in the right lower extremity proximally and in the aorta. He takes Plavix and aspirin daily. He also admits that he has a chronic bleeding problem. States that he used to take high-dose high-frequency ibuprofen/Advil which caused a chronic GI bleed. Has been evaluated for this by specialist and surgery was recommended however the patient declined intervention secondary to story she had heard from other patients who had this intervened on. States he did not want to end up with a colostomy bag. He states due to his chronic bleeding he does from time to time require iron infusions. Denies any change or worsening of his GI bleeding. Admits to chronic dark-colored stools. TRAVEL OUTSIDE OF THE [place] IN LAST 30 DAYS: No - Related Data Allergies/Adverse Reactions: Sulfa (Sulfonamide Antibiotics) Allergy (Unknown, Verified 06/19/16 01:53) Past Medical History - General Information source: Patient - Social History Smoking Status: Never Smoker Family History: Reviewed & Not Pertinent Patient has suicidal ideation: No Patient has homicidal ideation: No - Past Medical History Cardiac Medical History: Reports: Hx Hypercholesterolemia, Hx Hypertension Denies: Hx Congestive Heart Failure, Hx Heart Attack Pulmonary Medical History: Denies: Hx Asthma, Hx Bronchitis, Hx COPD, Hx Pneumonia, Hx Tuberculosis Neurological Medical History: Reports: Hx Cerebrovascular Accident - 1994, TIA. Denies: Hx Seizures, Hx Parkinson's Disease Endocrine Medical History: Reports: Hx Diabetes Mellitus Type 2 Renal/ Medical History: Reports: Hx Benign Prostatic Hyperplasia, Hx Kidney Stones, Hx Renal Insufficiency. Denies: Hx End Stage Renal Disease Malignancy Medical History: Reports Hx Renal (Kidney) Cancer GI Medical History: Reports: Hx Gastroesophageal Reflux Disease. Denies: Hx Cirrhosis, Hx Ulcer Musculoskeletal Medical History: Denies Hx Arthritis, Denies Hx Multiple Sclerosis Psychiatric Medical History: Denies: Hx Bipolar Disorder, Hx Depression, Hx Schizophrenia Past Surgical History: Reports: Hx Abdominal Surgery - APPENDIX, Hx Appendectomy, Hx Kidney (Renal Surgery) - Partial left nephrectomy for renal cell carcinoma, Hx Vascular Surgery - Right leg stents. Denies: Hx Adenoidectomy - Immunizations Hx Diphtheria, Pertussis, Tetanus Vaccination: No Hx Pneumococcal Vaccination: 06/08/12 Review of Systems - Review of Systems Constitutional: Weakness Cardiovascular: Chest pain Respiratory: Other - Dyspnea on exertion Skin: Other - Pale -: Yes All other systems reviewed and negative Physical Exam - Vital signs Vitals: Temp Pulse Resp BP Pulse Ox 98.2 F 100 16 132/49 H 97 10/30/19 14:04 10/30/19 14:04 10/30/19 14:04 10/30/19 14:04 10/30/19 14:04 - General General appearance: Alert In distress: None - HEENT Head: Normocephalic, Atraumatic Eyes: Normal Conjunctiva: Other - Pale conjunctiva Extraocular movements intact: Yes Eyelashes: Normal Pupils: PERRL Mucous membranes: Moist - Respiratory Respiratory status: No respiratory distress Chest status: Nontender Breath sounds: Normal Chest palpation: Normal - Cardiovascular Rhythm: Regular Heart sounds: S1 appreciated, S2 appreciated Murmur: Yes - Extremities General upper extremity: Normal inspection, Nontender, Normal ROM General lower extremity: Normal inspection, Nontender, Normal ROM - Neurological Neuro grossly intact: Yes Cognition: Normal Orientation: AAOx4 [place] Coma Scale Eye Opening: Spontaneous [place] Coma Scale Verbal: Oriented [place] Coma Scale Motor: Obeys Commands [place] Coma Scale Total: 15 Speech: Normal - Psychological Associated symptoms: Normal affect, Normal mood - Skin Skin Temperature: Warm Skin Moisture: Dry Skin Color: Pale Course - Re-evaluation Re-evalutation: 10/30/19 15:54 Spoke with the patient's pediatric speech therapist, Dr. Maldonado at this time. He doubts any cardiac origin of the patient's chest pain and dyspnea on exertion. Suspects the low hemoglobin as the culprit. Patient's hemoglobin at 5.6, 2 units of packed red blood cells was ordered for transfusion. Will attempt to admit the patient to the hospitalist service for further care and management. Dr. Maldonado advised if he hospitalist was not comfortable keeping him here they would happi ly accept him for transfer back to [place]. Pending callback from hospitalist at this time. 10/30/19 16:[address] Hanson, who recommended admission for elevated troponin and related severe anemia, symptomatic. Discussed this case further with hospitalist [employer], Katt. They will admit the patient to telemetry obs for further care and management. Patient stable at this time. 2 units red blood cells ordered for emergency department transfusion. - Vital Signs Vital signs: Temp Pulse Resp BP Pulse Ox 98.2 F 100 19 136/60 H 99 10/30/19 14:04 10/30/19 14:04 10/30/19 15:01 10/30/19 15:01 10/30/19 15:01 - Laboratory Result Diagrams: 10/30/19 14:23 10/30/19 14:23 Laboratory results interpreted by me: 10/30/19 10/30/19 10/30/19 14:23 14:23 14:23 RBC 1.83 L Hgb 5.6 L Hct 17.1 L RDW 25.0 H Lymph % (Auto) 6.2 L Seg Neutrophils % 86.6 H APTT 22.8 L Sodium 134.3 L BUN 32 H Creatinine 1.56 H Est GFR ( Amer) 53 L Est GFR (MDRD) Non-Af 44 L Glucose 381 H Alkaline Phosphatase 34 L Crossmatch 10/30/19 14:43 RBC Hgb Hct RDW Lymph % (Auto) Seg Neutrophils % APTT Sodium BUN Creatinine Est GFR ( Amer) Est GFR (MDRD) Non-Af Glucose Alkaline Phosphatase Crossmatch See Detail - EKG Interpretation by Me Additional EKG results interpreted by me: 10/30/19 15:55 EKG sinus at 96 bpm with normal intervals. No STEMI at 1358 per attending. Discharge - Discharge Clinical Impression: Symptomatic anemia, Elevated troponin Condition: Stable Disposition: ADMITTED OBSERVATION Admitting Provider: GIOVANNI Pleitez Unit Admitted: Telemetry Referrals: JESU RICO MD [Primary Care Provider] - Follow up as needed
[2019-10-30 14:38] LABS: ABSOLUTE BASOPHILS # (AUTO) 0.1 10^3/uL (0.0-0.2); ABSOLUTE EOSINOPHILS # (AUTO) 0.1 10^3/uL (0.0-0.6); ABSOLUTE LYMPHOCYTES (AUTO) 0.5 10^3/uL (0.5-4.7); ABSOLUTE MONOCYTES (AUTO) 0.4 10^3/uL (0.1-1.4); ABSOLUTE NEUT (AUTO) 7.7 10^3/uL (1.7-8.2); BASOPHILS % (AUTO) 0.6 % (0-2); EOSINOPHILS % (AUTO) 1.6 % (0-6); HEMATOCRIT 17.1 % (37.9-51.0); LYMPHOCYTES % (AUTO) 6.2 % (13-45); MEAN CORPUSCULAR HEMOGLOBIN 30.5 pg (27.0-33.4); MEAN CORPUSCULAR HGB CONC 32.6 g/dL (32.0-36.0); PLATELET COUNT 359 10^3/uL (150-450); RED BLOOD COUNT 1.83 10^6/uL (4.35-5.55); SEGMENTED NEUTROPHILS % (AUTO) 86.6 % (42-78); TOTAL CELLS COUNTED % (AUTO) 100 %; WHITE BLOOD COUNT 8.9 10^3/uL (4.0-10.5)
[2019-10-30 14:52] LABS: INTERNATIONAL RATION (INR) 1.07
[2019-10-30 14:53] LABS: PARTIAL THROMBOPLASTIN TIME 22.8 SEC (23.5-35.8)
--- NOTE | 2019-10-30 14:53 | RADIOLOGY REPORT (SQ) ---
EXAM DESCRIPTION: CHEST 2 VIEWS COMPLETED DATE/TIME: 10/30/2019 2:42 pm REASON FOR STUDY: cp COMPARISON: 05/16/2009 EXAM PARAMETERS: NUMBER OF VIEWS: two views TECHNIQUE: Digital Frontal and Lateral radiographic views of the chest acquired. RADIATION DOSE: NA LIMITATIONS: none FINDINGS: LUNGS AND PLEURA: Subcentimeter calcified granuloma right upper lobe. No evidence of pulm onary edema or pneumonia. No pleural effusion. MEDIASTINUM AND HILAR STRUCTURES: No masses or contour abnormalities. HEART AND VASCULAR STRUCTURES: Heart normal size. No evidence for failure. BONES: No acute findings. HARDWARE: None in the chest. OTHER: No other significant finding. IMPRESSION: NO ACUTE RADIOGRAPHIC FINDING IN THE CHEST. TECHNICAL DOCUMENTATION: JOB ID: [id number] 2010 [employer]- All Rights Reserved Reading location - IP/workstation name: [email or web address]
[2019-10-30 14:57] LABS: ALBUMIN 3.6 g/dL (3.5-5.0); ALKALINE PHOSPHATASE 34 U/L (38-126); ANION GAP 9 (5-19); ASPARTATE AMINO TRANSFERASE 19 U/L (17-59); BILIRUBIN,DIRECT 0.2 mg/dL (0.0-0.4); BILIRUBIN,TOTAL 0.2 mg/dL (0.2-1.3); BLOOD UREA NITROGEN 32 mg/dL (7-20); CALCIUM 9.5 mg/dL (8.4-10.2); CARBON DIOXIDE 27 mmol/L (22-30); CHLORIDE 98 mmol/L (98-107); GLUCOSE 381 mg/dL (75-110); POTASSIUM 4.5 mmol/L (3.6-5.0); TOTAL PROTEIN 6.4 g/dL (6.3-8.2)
[2019-10-30 15:01] LABS: MEAN CORPUSCULAR VOLUME 94 fl (80-97)
[2019-10-30 15:04] LABS: ANISOCYTOSIS 3+; POLYCHROMASIA 2+
[2019-10-30 15:05] LABS: OVALOCYTES SLIGHT; POIKILOCYTOSIS 1+; SCHISTOCYTES SLIGHT; TARGET CELLS 1+
[2019-10-30 15:07] LABS: HYPOCHROMASIA SLIGHT
[2019-10-30 15:09] LABS: HEMOGLOBIN 5.6 g/dL (13.5-17.0); PLATELET COMMENT ADEQUATE
[2019-10-30] MEDS ORDERED: NORMAL SALINE 250 ML IV PRN ×2 (15:11)
[2019-10-30] MEDS ORDERED: ONDANSETRON 4 MG TAB.RAPDIS PO PRN (17:01)
[2019-10-30] MEDS ORDERED: NORMAL SALINE 1000 ML 1,000 ML IV PRN (17:01)
[2019-10-30] MEDS ORDERED: ACETAMINOPHEN 325 MG TABLET PO PRN (17:01)
[2019-10-30] MEDS ORDERED: MAG HYDROX/AL HYDROX/SIMETH SUSP 30 ML UDCUP PO PRN (17:01)
[2019-10-30] MEDS ORDERED: ALBUTEROL SULFATE 0.083% NEB 2.5 MG/3 ML AMPUL NEB PRN (17:01)
[2019-10-30] MEDS ORDERED: DEXTROSE 40% GEL 15 GM TUBE PO PRN ×2 (17:08)
[2019-10-30] MEDS ORDERED: DEXTROSE 50%-WATER 25 GM/50 ML DISP.SYRIN IV PRN ×2 (17:08)
[2019-10-30] MEDS ORDERED: GLUCAGON,HUMAN RECOMB 1 MG INJ IM PRN (17:08)
--- NOTE | 2019-10-30 17:34 | PDOC H&P ---
History of Present Illness Admission Date/PCP: 10/30/19 16:25 JESU RICO MD Patient complains of: generalized weakness/fatigue History of Present Illness: LEIDA BLOUNT is a 74 year old male with a past medical history significant for hypertension, hyperlipidemia, CAD with multiple stents (3 stents placed [address] Maldonado at [facility]), CVA, BPH, renal cancer post surgical removal, GERD, chronic GI bleeding resulting in chronic anemia who presented to the emergency department today with a complaint of generalized weakness and fatigue. Patient reports that he received 1 unit PRBCs following his cardiac stents last week and felt well at discharge; has gradually become more weak over the last several days. He denies dyspnea at rest and chest pain. Patient reports that he has a history of chronic iron deficiency anemia for which he is followed by Dr. Naylor and receives monthly blood and iron transfusions with next appoi ntment on 11/01/2019. Evaluation in the emergency department revealed stable vital signs, hemoglobin of 5.6 (baseline 8-9), normal coags, and CKD 3 (baseline creatinine of 1.56/BUN 44). Patient's troponin is elevated to 0.334: EKG reveals NSR without acute ST segment changes. Chest x-ray was benign. The ED provider spoke with Dr. Maldonado regarding his elevated troponin; believes this may be demand mismatch ischemia secondary to his anemia. Recommends transfusing per protocol and monitoring overnight on telemetry. Patient is ordered 2 units PRBC and referred to the hospitalist service for adm ission and management of the above-stated complaints and findings. Past Medical History Cardiac Medical History: Reports: Coronary Artery Disease, Hyperlipidema, Hypertension Denies: Congestive Heart Failure, Myocardial Infarction Pulmonary Medical History: Reports: None Neurological Medical History: Reports: Ischemic CVA Denies: Seizures Endocrine Medical History: Reports: Diabetes Mellitus Type 2 - Insulin-dependent Renal/ Medical History: Reports: Chronic Kidney Disease Denies: End Stage Renal Disease Malignancy Medical History: Reports: Renal (Kidney) Cancer GI Medical History: Reports: Gastroesophageal Reflux Disease Denies: Cirrhosis Musculoskeltal Medical History: Denies: Arthritis Psychiatric Medical History: Denies: Bipolar Disorder, Depression Hematology: Reports: Anemia, Bleeding Tendencies Past Surgical History Past Surgical History: Reports: Appendectomy, Coronary Stent, Vascular Surgery - Right leg stents, Other - Partial left nephrectomy Social History Information Source: Patient Lives with: Spouse/Significant other Smoking Status: Never Smoker Frequency of Alcohol Use: None Hx Recreational Drug Use: No Drugs: None Hx Prescription Drug Abuse: No - Advance Directive Resuscitation Status: Full Code Surrogate healthcare decision maker:: The patient's , Naomi Blount Family History Family History: Reviewed & Not Pertinent Parental Family History Reviewed: Yes Children Family History Reviewed: Yes Sibling(s) Family History Reviewed.: Yes Medication/Allergy Home Medications: Acetaminophen [Tylenol Extra Strength 500 mg Tablet] 1 tab PO DAILYP PRN 08/28/16 Calcium Carbonate [Calcium] 500 mg PO BID 08/28/16 Clopidogrel Bisulfate [Plavix 75 mg Tablet] 75 mg PO DAILY 08/28/16 Esomeprazole Magnesium [Nexium] 40 mg PO BID 08/28/16 Ezetimibe/Simvastatin [Vytorin 10-40 Mg Tablet] 1 each PO DAILY 08/28/16 Fenofibrate [Lofibra] 160 mg PO DAILY 08/28/16 Fentanyl [Duragesic 50 Mcg/Hr Transdermal Patch] 1 each TD Q48H 08/28/16 Finasteride [Proscar 5 mg Tablet] 5 mg PO DAILY 08/28/16 Gabapentin [Neurontin 300 mg Capsule] 300 mg PO Q8 08/28/16 Hydroxyzine Pamoate [Vistaril 25 mg Capsule] 25 mg PO QID 08/28/16 Insulin Glargine,Hum.rec.anlog [Lantus] 30 unit SQ DAILY 08/28/16 Metformin HCl [Glucophage] 1,000 mg PO BID 08/28/16 Metoprolol Tartrate [Lopressor 50 mg Tablet] 50 mg PO BID 08/28/16 Milnacipran HCl [Savella] 50 mg PO BID 08/28/16 Mometasone Furoate [Nasonex] 2 sprays NASL DAILY 08/28/16 Nitroglycerin [Nitro-Dur 5 mg (0.2 mg/Hr) Transdermal Patch] 1 each TD DAILY 08/28/16 Phenylephrine HCl [Sinus Decongestant] 10 mg PO Q6HP PRN 08/28/16 Pregabalin [Lyrica 100 Mg Capsule] 200 mg PO TID 08/28/16 Sitagliptin Phosphate [Januvia 50 mg Tablet] 100 mg PO DAILY 08/28/16 Solifenacin Succinate [Vesicare] 10 mg PO DAILY 08/28/16 Tramadol HCl [Ultram 50 mg Tablet] 50 mg PO Q6HP PRN 08/28/16 Allergies/Adverse Reactions: Sulfa (Sulfonamide Antibiotics) Allergy (Unknown, Verified 06/19/16 01:53) Review of Systems Constitutional: PRESENT: fatigue, weakness. ABSENT: chills, fever(s), headache(s), weight gain, weight loss Eyes: ABSENT: visual disturbances Ears: ABSENT: hearing changes Cardiovascular: PRESENT: dyspnea on exertion. ABSENT: chest pain, edema, orthropnea, palpitations Respiratory: ABSENT: cough, hemoptysis Gastrointestinal: ABSENT: abdominal pain, constipation, diarrhea, hematemesis, hematochezia, nausea, vomiting Genitourinary: ABSENT: dysuria, hematuria Musculoskeletal: ABSENT: joint swelling Integumentary: ABSENT: rash, wounds Neurological: ABSENT: abnormal gait, abnormal speech, confusion, dizziness, focal weakness, syncope Psychiatric: ABSENT: anxiety, depression, homidical ideation, suicidal ideation Endocrine: ABSENT: cold intolerance, heat intolerance, polydipsia, polyuria Hematologic/Lymphatic: ABSENT: easy bleeding, easy bruising Physical Exam Vital Signs: Temp Pulse Resp BP Pulse Ox 98.0 F 82 20 137/65 H 99 10/30/19 16:45 10/30/19 16:43 10/30/19 16:45 10/30/19 16:45 10/30/19 16:45 Intake & Output 10/29/19 10/30/19 10/31/19 06:59 06:59 06:59 Intake Total 60 Output Total 120 Balance -60 Weight 87 kg General appearance: PRESENT: no acute distress, cooperative, well-developed, well-nourished Head exam: PRESENT: atraumatic, normocephalic Eye exam: PRESENT: conjunctiva pale, EOMI, PERRLA. ABSENT: scleral icterus Mouth exam: PRESENT: moist, tongue midline Respiratory exam: PRESENT: clear to auscultation matthew, symmetrical, unlabored. ABSENT: rales, rhonchi, wheezes Cardiovascular exam: PRESENT: RRR, +S1, +S2. ABSENT: diastolic murmur, rubs, systolic murmur Pulses: PRESENT: +1 pedal pulses bilateral Vascular exam: PRESENT: normal capillary refill GI/Abdominal exam: PRESENT: normal bowel sounds, soft. ABSENT: distended, guarding, mass, organolmegaly, rebound, tenderness Rectal exam: PRESENT: deferred Extremities exam: PRESENT: full ROM. ABSENT: calf tenderness, clubbing, pedal edema Musculoskeletal exam: PRESENT: ambulatory Neurological exam: PRESENT: alert, awake, oriented to person, oriented to place, oriented to time, oriented to situation, CN II-XII grossly intact. ABSENT: motor sensory deficit Psychiatric exam: PRESENT: anxious - Tearful, appropriate affect, normal mood. ABSENT: homicidal ideation, suicidal ideation Skin exam: PRESENT: dry, intact, pallor, warm. ABSENT: cyanosis, rash Results Laboratory Results: 10/30/19 14:23 10/30/19 14:23 10/30/19 10/30/19 10/30/19 14:23 14:23 14:43 WBC 8.9 RBC 1.83 L Hgb 5.6 L Hct 17.1 L MCV 94 D MCH 30.5 MCHC 32.6 RDW 25.0 H Plt Count 359 Seg Neutrophils % 86.6 H Sodium 134.3 L Potassium 4.5 Chloride 98 Carbon Dioxide 27 Anion Gap 9 BUN 32 H Creatinine 1.56 H Est GFR ( Amer) 53 L Glucose 381 H Calcium 9.5 Magnesium 1.8 Total Bilirubin 0.2 AST 19 Alkaline Phosphatase 34 L Total Protein 6.4 Albumin 3.6 Blood Type B NEGATIVE Antibody Screen NEGATIVE 10/30/19 14:23 Troponin I 0.334 Impressions: Chest X-Ray 10/30/19 14:08 IMPRESSION: NO ACUTE RADIOGRAPHIC FINDING IN THE CHEST. Assessment and Plan - Diagnosis (1) Symptomatic anemia Is this a current diagnosis for this admission?: Yes Plan: Patient is admitted to the medical floor on continuous cardiac telemetry. He has been typed and crossed to receive 2 units PRBC. IV Feraheme per Dr. Naylor was recommendations. Follow-up CBC. We will encourage GI follow-up. Follow-up with Dr. Naylor in 3 weeks. (2) Chronic iron deficiency anemia Is this a current diagnosis for this admission?: Yes Plan: Discussed with Dr. Naylor today. Recommend transfusion as planned and providing IV Feraheme 510 mg. Patient should be seen in his office in 3 weeks for follow-up labs. (3) CAD (coronary artery disease) Qualifiers: Coronary Disease-Associated Artery/Lesion type: council artery Associated angina: without angina Is this a current diagnosis for this admission?: Yes Plan: The patient had 3 stents placed 10/23/[address] Maldonado at [facility]. Due to elevated troponin, Dr. Maldonado recommends telemetry monitoring overnight. Patient is admitted to the medical floor on continuous cardiac telemetry. We will trend troponins. Continue home dose medications once reconciled. (4) Diabetes mellitus Qualifiers: Diabetes mellitus type: type 2 Diabetes mellitus [facility] insulin use: with [facility] use Chronic kidney disease stage: stage 3 (moderate) Is this a current diagnosis for this admission?: Yes Plan: Patient is placed on a consistent carb/cardiac diet. Holding oral medications while admitted. Patient reports that he takes Lantus 20 units nightly; will continue 10 units while admitted. Accu-Cheks before meals and at bedtime with Humalog for sliding scale coverage. Hypoglycemia protocol in place. (5) Elevated troponin Is this a current diagnosis for this admission?: Yes Plan: Likely secondary to mismatch ischemia; patient with hemoglobin of 5.6 Patient denies chest pain. ED provider spoke with Dr. Maldonado regarding his troponin prior to admission. We will monitor on telemetry and continue to trend troponins. - Time Time Spent with patient: 35 or more minutes Medications reviewed and adjusted accordingly: Yes Anticipated discharge: Home Within: within 24 hours
--- NOTE | 2019-10-30 19:00 | EKG REPORT ---
SEVERITY:- BORDERLINE ECG - SINUS RHYTHM : Confirmed by: Emanuel Pedroza MD 30-Oct-2019 18:59:02
[2019-10-30] MEDS ORDERED: FERUMOXYTOL 510 MG in NORMAL SALINE 100 ML IV ONE (21:00)
[2019-10-30] MEDS ORDERED: TRAMADOL HCL 50 MG TABLET PO PRN (21:44)
[2019-10-30] MEDS: PREGABALIN 100 MG CAPSULE PO SCH (22:00)
[2019-10-30] MEDS ORDERED: INSULIN GLARGINE,HUM.REC.ANLOG 1,000 UNIT/10 ML VIAL SUBCUT SCH (22:00)
[2019-10-30] MEDS: INSULIN LISPRO 100 UNIT/ML 3 ML VIAL SUBCUT SCH (22:10)
[2019-10-31 02:29] LABS: ABSOLUTE BASOPHILS # (AUTO) 0.1 10^3/uL (0.0-0.2); ABSOLUTE EOSINOPHILS # (AUTO) 0.3 10^3/uL (0.0-0.6); ABSOLUTE LYMPHOCYTES (AUTO) 0.8 10^3/uL (0.5-4.7); ABSOLUTE MONOCYTES (AUTO) 0.5 10^3/uL (0.1-1.4); ABSOLUTE NEUT (AUTO) 5.7 10^3/uL (1.7-8.2); BASOPHILS % (AUTO) 0.8 % (0-2); EOSINOPHILS % (AUTO) 3.8 % (0-6); HEMATOCRIT 22.5 % (37.9-51.0); LYMPHOCYTES % (AUTO) 10.4 % (13-45); MEAN CORPUSCULAR HEMOGLOBIN 30.8 pg (27.0-33.4); MEAN CORPUSCULAR HGB CONC 34.2 g/dL (32.0-36.0); MONOCYTES % (AUTO) 6.7 % (3-13); PLATELET COUNT 313 10^3/uL (150-450); RED CELL DISTRIBUTION WIDTH 20.1 % (11.5-14.0); SEGMENTED NEUTROPHILS % (AUTO) 78.3 % (42-78); TOTAL CELLS COUNTED % (AUTO) 100 %; WHITE BLOOD COUNT 7.2 10^3/uL (4.0-10.5)
[2019-10-31 02:36] LABS: ANION GAP 7 (5-19); BLOOD UREA NITROGEN 35 mg/dL (7-20); CALCIUM 9.6 mg/dL (8.4-10.2); CARBON DIOXIDE 28 mmol/L (22-30); CHLORIDE 99 mmol/L (98-107); GLUCOSE 257 mg/dL (75-110); POTASSIUM 4.5 mmol/L (3.6-5.0)
[2019-10-31 03:02] LABS: ANISOCYTOSIS 2+; OVALOCYTES SLIGHT; PLATELET COMMENT ADEQUATE; POIKILOCYTOSIS SLIGHT; POLYCHROMASIA 1+; SCHISTOCYTES SLIGHT; TEAR DROP CELLS SLIGHT; TOXIC GRANULATION 1+
[2019-10-31 03:04] LABS: HEMOGLOBIN 7.7 g/dL (13.5-17.0); MEAN CORPUSCULAR VOLUME 90 fl (80-97)
[2019-10-31] MEDS: INSULIN LISPRO 100 UNIT/ML 3 ML VIAL SUBCUT SCH ×3 (07:00→16:21)
[2019-10-31] MEDS ORDERED: NORMAL SALINE 250 ML IV PRN ×2 (07:56)
[2019-10-31] MEDS ORDERED: NORMAL SALINE 1000 ML 1,000 ML IV PRN (07:57)
[2019-10-31] MEDS: PREGABALIN 100 MG CAPSULE PO SCH ×2 (09:36→14:55)
[2019-10-31] MEDS ORDERED: FENTANYL 50 MCG/HR PATCH.TD72 TD SCH (10:00)
[2019-10-31] MEDS ORDERED: FINASTERIDE 5 MG TABLET PO SCH (10:00)
[2019-10-31] MEDS ORDERED: DOCUSATE SODIUM 100 MG CAPSULE PO SCH (10:00)
[2019-10-31] MEDS ORDERED: (PENDING PHARMACY ID) (Mometasone Furoate [Nasonex] 2 SPRAYS) NASL SCH (10:00)
[2019-10-31] MEDS ORDERED: (PENDING PHARMACY ID) (Solifenacin Succinate [Vesicare] 10 MG) PO SCH (10:00)
[2019-10-31] MEDS ORDERED: METOPROLOL TARTRATE 50 MG TABLET PO SCH (10:00)
[2019-10-31] MEDS ORDERED: TOLTERODINE TARTRATE 1 MG TABLET PO SCH (10:00)
[2019-10-31] MEDS ORDERED: FLUTICASONE NASAL SPRAY 50 MCG/SPRY 120 SPRAY/16 GM NASL SCH (10:00)
[2019-10-31] MEDS ORDERED: GABAPENTIN 300 MG CAPSULE PO SCH (14:00)
[2019-10-31 15:25] LABS: HEMATOCRIT 26.8 % (37.9-51.0); HEMOGLOBIN 9.1 g/dL (13.5-17.0); MEAN CORPUSCULAR HEMOGLOBIN 30.5 pg (27.0-33.4); MEAN CORPUSCULAR HGB CONC 34.1 g/dL (32.0-36.0); MEAN CORPUSCULAR VOLUME 89 fl (80-97); PLATELET COUNT 324 10^3/uL (150-450); RED BLOOD COUNT 2.99 10^6/uL (4.35-5.55); RED CELL DISTRIBUTION WIDTH 17.8 % (11.5-14.0)
[2019-10-31 15:52] LABS: ANION GAP 8 (5-19); BLOOD UREA NITROGEN 28 mg/dL (7-20); CALCIUM 9.7 mg/dL (8.4-10.2); CARBON DIOXIDE 27 mmol/L (22-30); CHLORIDE 99 mmol/L (98-107); GLUCOSE 214 mg/dL (75-110)
[2019-10-31 18:08] VITALS: BP 167/71
--- NOTE | 2019-10-31 18:23 | PDOC DISCHARGE SUMMARY ---
Impression - Admit/DC Date/PCP Admission Date/Primary Care Provider: 10/30/19 16:25 JESU RICO MD Discharge Date: 10/31/19 - Discharge Diagnosis (1) Symptomatic anemia Is this a current diagnosis for this admission?: Yes (2) Chronic iron deficiency anemia Is this a current diagnosis for this admission?: Yes (3) CAD (coronary artery disease) Is this a current diagnosis for this admission?: Yes (4) Diabetes mellitus Is this a current diagnosis for this admission?: Yes (5) Elevated troponin Is this a current diagnosis for this admission?: Yes - Additional Information Resuscitation Status: Full Code Discharge Diet: Cardiac, Diabetic Discharge Activity: Activity As Tolerated, Balance Activity w/Rest Referrals: JESU RICO MD [Primary Care Provider] - (Follow up within 1 week.) AMELIA NAYLOR MD [ACTIVE STAFF] - (Follow up within 3 weeks.) NAKUL MALDONADO MD [NO LOCAL MD] - (Follow up with your sample cutter as scheduled.) Home Medications: Acetaminophen [Tylenol Extra Strength 500 mg Tablet] 1,000 mg PO DAILYP PRN 08/28/16 Clopidogrel Bisulfate [Plavix 75 mg Tablet] 75 mg PO DAILY 08/28/16 Ezetimibe/Simvastatin [Vytorin 10-40 mg Tablet] 1 each PO DAILY 08/28/16 Fenofibrate [Lofibra] 160 mg PO DAILY 08/28/16 Fentanyl [Duragesic 50 Mcg/Hr Transdermal Patch] 1 each TD Q48H 08/28/16 Finasteride [Proscar 5 mg Tablet] 5 mg PO DAILY 08/28/16 Gabapentin [Neurontin 300 mg Capsule] 300 mg PO Q8 08/28/16 Hydroxyzine Pamoate [Vistaril 25 mg Capsule] 25 mg PO QID 08/28/16 Metformin HCl [Glucophage] 1,000 mg PO BID 08/28/16 Metoprolol Tartrate [Lopressor 50 mg Tablet] 50 mg PO BID 08/28/16 Milnacipran HCl [Savella] 50 mg PO BID 08/28/16 Mometasone Furoate [Nasonex] 2 sprays NASL DAILY 08/28/16 Phenylephrine HCl [Sinus Decongestant] 10 mg PO Q6HP PRN 08/28/16 Pregabalin [Lyrica 100 mg Capsule] 200 mg PO TID 08/28/16 Sitagliptin Phosphate [Januvia 50 mg Tablet] 100 mg PO DAILY 08/28/16 Solifenacin Succinate [Vesicare] 10 mg PO DAILY 08/28/16 Tramadol HCl [Ultram 50 mg Tablet] 50 mg PO Q6HP PRN 08/28/16 Insulin Glargine,Hum.rec.anlog [Basaglar Kwikpen U-100] 20 unit SQ DAILY 10/30/19 Nitroglycerin [Nitrostat 0.4 mg (1/150 Gr) Tabs 25/Bottle] 1 tab SL Q5MP PRN 10/30/19 Triamcinolone Acetonide [24 Hour Nasal Allergy] 1 puff NASL DAILY 10/30/19 History of Present Illiness History of Present Illness: LEIDA BLOUNT is a 74 year old male with a past medical history significant for hypertension, hyperlipidemia, CAD with multiple stents (3 stents placed [address] Maldonado at [facility]), CVA, BPH, renal cancer post surgical removal, GERD, chronic GI bleeding resulting in chronic anemia who presented to the emergency department today with a complaint of generalized weakness and fatigue. Patient reports that he received 1 unit PRBCs following his cardiac stents last week and felt well at discharge; has gradually become more weak over the last several days. He denies dyspnea at rest and chest pain. Patient reports that he has a history of chronic iron deficiency anemia for which he is followed by Dr. Naylor and receives monthly blood and iron transfusions with next appointment on 11/01/2019. Evaluation in the emergency department revealed stable vital signs, hemoglobin of 5.6 (baseline 8-9), normal coags, and CKD 3 (baseline creatinine of 1.56/BUN 44). Patient's troponin is elevated to 0.334: EKG reveals NSR without acute ST segment changes. Chest x-ray was benign. The ED provider spoke with Dr. Maldonado regarding his elevated troponin; believes this may be demand mismatch ischemia secondary to his anemia. Recommends transfusing per protocol and monitoring overnight on telemetry. Patient is ordered 2 units PRBC and referred to the hospitalist service for admission and management of the above-stated complaints and findings. Hospital Course Hospital Course: Patient was admitted to the medical floor and monitored on continuous cardiac telemetry overnight. He had no episodes of chest pain. No abnormal findings on telemetry. Vital signs remained stable. He was provided IV fluids, 4 units PRBC, and IV Feraheme as was recommended by Dr. Naylor. Serial troponins trended down from peak of 0.401 to 0.267. Creatinine returned to his baseline of 1.60. Hemoglobin at time of discharge was 9.1, however, 1 additional unit was being transfused. Patient reports that he is feeling significantly improved; fatigue, generalized weakness, and dyspnea on exertion has resolved. Patient was discharged home in stable condition. He is advised to follow up with his PCP within 1 week, his sample cutter as scheduled, and Dr. Naylor in three weeks. He is instructed to continue his home medication regiment unchanged. Return to the emergency department as needed for concerning symptoms. Physical Exam Vital Signs: Temp Pulse Resp BP Pulse Ox 97.6 F 73 16 167/71 H 98 10/31/19 18:01 10/31/19 18:01 10/31/19 18:01 10/31/19 18:01 10/31/19 18:01 Intake & Output 10/30/19 10/31/19 11/01/19 06:59 06:59 06:59 Intake Total 1285 660 Output Total 120 625 Balance 1165 35 Weight 86.18 kg General appearance: PRESENT: no acute distress, cooperative, well-developed, well-nourished Head exam: PRESENT: atraumatic, normocephalic Eye exam: PRESENT: conjunctiva pink, EOMI, PERRLA. ABSENT: scleral icterus Ear exam: PRESENT: normal external ear exam Mouth exam: PRESENT: moist, tongue midline Respiratory exam: PRESENT: clear to auscultation matthew, symmetrical, unlabored. ABSENT: rales, rhonchi, wheezes Cardiovascular exam: PRESENT: RRR, +S1, +S2. ABSENT: diastolic murmur, rubs, systolic murmur Pulses: PRESENT: normal dorsalis pedis pul Vascular exam: PRESENT: normal capillary refill Extremities exam: PRESENT: full ROM. ABSENT: calf tenderness, clubbing, pedal edema Musculoskeletal exam: PRESENT: ambulatory Neurological exam: PRESENT: alert, awake, oriented to person, oriented to place, oriented to time, oriented to situation, CN II-XII grossly intact. ABSENT: motor sensory deficit Psychiatric exam: PRESENT: appropriate affect, normal mood. ABSENT: homicidal ideation, suicidal ideation Skin exam: PRESENT: dry, intact, warm. ABSENT: cyanosis, rash Results Laboratory Results: WBC 7.0 10^3/uL (4.0-10.5) 10/31/19 14:33 RBC 2.99 10^6/uL (4.35-5.55) L 10/31/19 14:33 Hgb 9.1 g/dL (13.5-17.0) L 10/31/19 14:33 Hct 26.8 % (37.9-51.0) L 10/31/19 14:33 MCV 89 fl (80-97) 10/31/19 14:33 MCH 30.5 pg (27.0-33.4) 10/31/19 14:33 MCHC 34.1 g/dL (32.0-36.0) 10/31/19 14:33 RDW 17.8 % (11.5-14.0) H 10/31/19 14:33 Plt Count 324 10^3/uL (150-450) 10/31/19 14:33 Lymph % (Auto) 10.4 % (13-45) L 10/31/19 02:12 Angelina % (Auto) 6.7 % (3-13) 10/31/19 02:12 Eos % (Auto) 3.8 % (0-6) 10/31/19 02:12 Baso % (Auto) 0.8 % (0-2) 10/31/19 02:12 Absolute Neuts (auto) 5.7 10^3/uL (1.7-8.2) 10/31/19 02:12 Absolute Lymphs (auto) 0.8 10^3/uL (0.5-4.7) 10/31/19 02:12 Absolute Monos (auto) 0.5 10^3/uL (0.1-1.4) 10/31/19 02:12 Absolute Eos (auto) 0.3 10^3/uL (0.0-0.6) 10/31/19 02:12 Absolute Basos (auto) 0.1 10^3/uL (0.0-0.2) 10/31/19 02:12 Seg Neutrophils % 78.3 % (42-78) H 10/31/19 02:12 Toxic Granulation 1+ 03/25/20 02:12 Platelet Comment ADEQUATE 10/31/19 02:12 Polychromasia 1+ 10/31/19 02:12 Hypochromasia SLIGHT 10/30/19 14:23 Poikilocytosis SLIGHT 10/31/19 02:12 Basophilic Stippling PRESENT 10/30/19 14:23 Anisocytosis 2+ 10/31/19 02:12 Target Cells 1+ 10/30/19 14:23 Tear Drop Cells SLIGHT 10/31/19 02:12 Ovalocytes SLIGHT 10/31/19 02:12 Schistocytes SLIGHT 10/31/19 02:12 PT 14.0 SEC (11.4-15.4) 10/30/19 14:23 INR 1.07 10/30/19 14:23 APTT 22.8 SEC (23.5-35.8) L 10/30/19 14:23 Sodium 134.4 mmol/L (137-145) L 10/31/19 14:33 Potassium 5.0 mmol/L (3.6-5.0) 10/31/19 14:33 Chloride 99 mmol/L (98-107) 10/31/19 14:33 Carbon Dioxide 27 mmol/L (22-30) 10/31/19 14:33 Anion Gap 8 (5-19) 10/31/19 14:33 BUN 28 mg/dL (7-20) H 10/31/19 14:33 Creatinine 1.60 mg/dL (0.52-1.25) H 10/31/19 14:33 Est GFR ( Amer) 52 (>60) L 10/31/19 14:33 Est GFR (MDRD) Non-Af 43 (>60) L 10/31/19 14:33 Glucose 214 mg/dL (75-110) H 10/31/19 14:33 POC Glucose 232 mg/dL (70-110) H 10/31/19 15:33 Calcium 9.7 mg/dL (8.4-10.2) 10/31/19 14:33 Magnesium 1.8 mg/dL (1.6-2.3) 10/30/19 14:23 Total Bilirubin 0.2 mg/dL (0.2-1.3) 10/30/19 14:23 Direct Bilirubin 0.2 mg/dL (0.0-0.4) 10/30/19 14:23 Neonat Total Bilirubin Not Reportable 10/30/19 14:23 Neonat Direct Bilirubin Not Reportable 10/30/19 14:23 Neonat Indirect Bili Not Reportable 10/30/19 14:23 AST 19 U/L (17-59) 10/30/19 14:23 ALT 15 U/L (<50) 10/30/19 14:23 Alkaline Phosphatase 34 U/L (38-126) L 10/30/19 14:23 Troponin I 0.267 ng/mL 10/31/19 14:33 Total Protein 6.4 g/dL (6.3-8.2) 10/30/19 14:23 Albumin 3.6 g/dL (3.5-5.0) 10/30/19 14:23 Blood Type B NEGATIVE 10/30/19 14:43 Blood Type Confirm B NEGATIVE 10/30/19 14:43 Antibody Screen NEGATIVE 10/30/19 14:43 Crossmatch See Detail 10/30/19 14:43 10/30/19 10/30/19 10/31/19 14:23 16:46 01:15 Troponin I 0.334 0.370 0.401 10/31/19 14:33 Troponin I 0.267 Impressions: Chest X-Ray 10/30/19 14:08 IMPRESSION: NO ACUTE RADIOGRAPHIC FINDING IN THE CHEST. Plan Plan of Treatment: Patient was discharged home in stable condition. He is advised to follow-up with his primary care provider within 1 week. Follow-up with his sample cutter as scheduled. Follow-up with Dr. Naylor in 3 weeks. Take your medications as prescribed. Eat a heart healthy diet. Do NOT smoke. Return to emergency department as needed for concerning symptoms. Time Spent: Greater than 30 Minutes Stroke Is this a Stroke Patient?: No Acute Heart Failure - Is this a Heart Failure Patient?: No
== END 2019-10-31 20:18 | disposition home or self-care (01) ==
LOC: ER 13:47 → EH 16:25 → 4S 18:39
PROVIDERS: ADMIT Internal Medicine; ATTEND Registered Nurse
DX: D50.0 Iron deficiency anemia secondary to blood loss (chronic) (principal); I25.10 Atherosclerotic heart disease of native coronary artery without angina pectoris; I12.9 Hypertensive chronic kidney disease with stage 1 through stage 4 chronic kidney disease, or unspecified chronic kidney disease; E11.22 Type 2 diabetes mellitus with diabetic chronic kidney disease; N18.3 Chronic kidney disease, stage 3 (moderate); R79.89 Other specified abnormal findings of blood chemistry; R07.9 Chest pain, unspecified; Z79.899 Other long term (current) drug therapy; Z79.02 Long term (current) use of antithrombotics/antiplatelets; Z95.5 Presence of coronary angioplasty implant and graft; Z86.73 Personal history of transient ischemic attack (TIA), and cerebral infarction without residual deficits; Z85.528 Personal history of other malignant neoplasm of kidney; Z79.4 Long term (current) use of insulin; Z90.5 Acquired absence of kidney; Z79.82 Long term (current) use of aspirin; Z90.49 Acquired absence of other specified parts of digestive tract
CPT/HCPCS: 93005; 99285; 86900; 86901; 36415 ×2; 36430; 86850; 82962 ×2; 83735; 85025 ×2; 85610; 85730; 80048; 80053; 84484 ×2; 86920; 71046; 93010; P9016 ×2; A9270 ×12; Q0138; J7050; G0378; J1815; J3490

== ENCOUNTER → 2019-12-03 | Outpatient (CLI) | payer MEDICARE, BC, OTHER ==
[2019-12-03 08:56] LABS: CARBON DIOXIDE 27 mmol/L (22-30); CHLORIDE 100 mmol/L (98-107)
[2019-12-03 08:57] LABS: BLOOD UREA NITROGEN 32 mg/dL (7-20); CALCIUM 9.4 mg/dL (8.4-10.2); GLUCOSE 132 mg/dL (75-110); POTASSIUM 4.5 mmol/L (3.6-5.0)
[2019-12-03 08:58] LABS: ANION GAP 8 (5-19)
== END ==
LOC: OD 07:58
PROVIDERS: ATTEND Family Medicine Geriatric Medicine
DX: E83.52 Hypercalcemia (principal); Z79.899 Other long term (current) drug therapy
CPT/HCPCS: 36415; 80048; 83970

== ENCOUNTER 2019-12-31 17:20 | Inpatient (IN) | payer MEDICARE, BC, OTHER ==
--- NOTE | 2019-12-31 17:53 | RADIOLOGY REPORT (SQ) ---
EXAM DESCRIPTION: CHEST SINGLE VIEW IMAGES COMPLETED DATE/TIME: 12/31/2019 4:34 pm REASON FOR STUDY: bed 12 chest pain COMPARISON: 10/30/2019 EXAM PARAMETERS: NUMBER OF VIEWS: One view. TECHNIQUE: Single frontal radiographic view of the chest acquired. RADIATION DOSE: NA LIMITATIONS: None. FINDINGS: LUNGS AND PLEURA: Lungs are hyperinflated. No focal consolidation or pleural effusion. N o pneumothorax. MEDIASTINUM AND HILAR STRUCTURES: No masses. Contour normal. HEART AND VASCULAR STRUCTURES: Heart normal in size. Normal vasculature. BONES: No acute findings. HARDWARE: None in the chest. OTHER: No other significant finding. IMPRESSION: NO ACUTE RADIOGRAPHIC FINDING IN THE CHEST. TECHNICAL DOCUMENTATION: JOB ID: [id number] 2010 [employer]- All Rights Reserved Reading location - IP/workstation name: [email or web address]
[2019-12-31 18:12] LABS: ABSOLUTE BASOPHILS # (AUTO) 0.1 10^3/uL (0.0-0.2); ABSOLUTE EOSINOPHILS # (AUTO) 0.3 10^3/uL (0.0-0.6); ABSOLUTE LYMPHOCYTES (AUTO) 0.5 10^3/uL (0.5-4.7); ABSOLUTE MONOCYTES (AUTO) 0.3 10^3/uL (0.1-1.4); ABSOLUTE NEUT (AUTO) 3.4 10^3/uL (1.7-8.2); BASOPHILS % (AUTO) 1.3 % (0-2); EOSINOPHILS % (AUTO) 6.9 % (0-6); LYMPHOCYTES % (AUTO) 11.6 % (13-45); MEAN CORPUSCULAR HEMOGLOBIN 28.1 pg (27.0-33.4); MEAN CORPUSCULAR HGB CONC 32.2 g/dL (32.0-36.0); MONOCYTES % (AUTO) 7.3 % (3-13); PLATELET COUNT 349 10^3/uL (150-450); RED BLOOD COUNT 1.95 10^6/uL (4.35-5.55); RED CELL DISTRIBUTION WIDTH 18.2 % (11.5-14.0); SEGMENTED NEUTROPHILS % (AUTO) 72.9 % (42-78); TOTAL CELLS COUNTED % (AUTO) 100 %; WHITE BLOOD COUNT 4.7 10^3/uL (4.0-10.5)
--- NOTE | 2019-12-31 18:15 | ER Document Report ---
ED General - General Chief Complaint: Chest Pain Stated Complaint: CHEST PAIN Time Seen by Provider: 12/31/19 18:00 Primary Care Provider: JESU RICO MD [Primary Care Provider] - Follow up as needed Mode of Arrival: Medic Information source: Patient Notes: my notes 74-year-old male arrives by EMS with chief complaint of chest pain for 3 days. Patient had 7 stents placed in October 2019. EMS gave him 2 nitroglycerin without relief and patient was given aspirin 325. Complications involving his October admission involve GI bleeds and receives 2 units of packed RBCs every 2 weeks. Patient arrives today quite pale with pale conjunctiva tongue and and fissures. Patient is also COHN and S OB. When he walks 10 feet to his bathroom to his chair he is short of breath. Patient reports this is been present since the when he was on Motrin for arthritis. He was found to have AVM on multiple colonoscopies and endoscopies. Is scheduled on Tuesday for a endoscopy. He reports he is having substernal chest pain a grabbing sensation as well as diffuse chest pain going from his right shoulder to his left shoulder. Patient is followed by Dr. Quiroz batch unit treater in [facility] as well as Dr. Maldonado oil operator in [facility]. Patient reports she has black stools always since the . He has been evaluated by camera intestinal and has been found to have AVM and these are present around his distal esophagus and distal small intestine. TRAVEL OUTSIDE OF THE [place] IN LAST 30 DAYS: No - HPI Onset: Just prior to arrival Onset/Duration: Sudden, Persistent, Worse Quality of pain: Achy Severity: Moderate Pain Level: 2 Associated symptoms: None, Shortness of breath Exacerbated by: Walking Relieved by: Denies Similar symptoms previously: Yes Recently seen / treated by doctor: Yes - Related Data Allergies/Adverse Reactions: Sulfa (Sulfonamide Antibiotics) Allergy (Unknown, Verified 06/19/16 01:53) Past Medical History - General Information source: Patient - Social History Smoking Status: Former Smoker Cigarette use (# per day): No Chew tobacco use (# tins/day): No Smoking Education Provided: No Frequency of alcohol use: None Drug Abuse: None Lives with: Family Family History: Reviewed & Not Pertinent Patient has suicidal ideation: No Patient has homicidal ideation: No - Past Medical History Cardiac Medical History: Reports: Hx Coronary Artery Disease, Hx Hypercholesterolemia, Hx Hypertension Denies: Hx Congestive Heart Failure, Hx Heart Attack Pulmonary Medical History: Denies: Hx Asthma, Hx Bronchitis, Hx COPD, Hx Pneumonia, Hx Tuberculosis Neurological Medical History: Reports: Hx Cerebrovascular Accident - 1994, TIA. Denies: Hx Seizures, Hx Parkinson's Disease Endocrine Medical History: Reports: Hx Diabetes Mellitus Type 2 - Insulin- dependent Renal/ Medical History: Reports: Hx Benign Prostatic Hyperplasia, Hx Kidney Stones, Hx Renal Insufficiency. Denies: Hx End Stage Renal Disease Malignancy Medical History: Reports Hx Renal (Kidney) Cancer GI Medical History: Reports: Hx Gastroesophageal Reflux Disease. Denies: Hx Cirrhosis, Hx Ulcer Musculoskeletal Medical History: Denies Hx Arthritis, Denies Hx Multiple Sclerosis Psychiatric Medical History: Denies: Hx Bipolar Disorder, Hx Depression, Hx Schizophrenia Past Surgical History: Reports: Hx Abdominal Surgery - APPENDIX, Hx Appendectomy, Hx Coronary Stent, Hx Kidney (Renal Surgery) - Partial left nephrectomy for renal cell carcinoma, Hx Vascular Surgery - Right leg stents, Other - Partial left nephrectomy. Denies: Hx Adenoidectomy - Immunizations Hx Diphtheria, Pertussis, Tetanus Vaccination: No Hx Pneumococcal Vaccination: 06/08/12 Review of Systems - Review of Systems Constitutional: See HPI, Malaise, Weakness EENT: See HPI, Other - Patient complains of swishing noise in his ears bilaterally; he advises when he is low on his red blood cells he has this sensation. Cardiovascular: See HPI, Chest pain, Orthopnea, Dyspnea, Dizziness, Lightheaded Respiratory: No symptoms reported Gastrointestinal: See HPI, Abdominal pain - Patient reports she has a history of GERD and points to his substernal xiphoid area is being painful. He advises he swallowed a camera for GI evaluation around 1 year ago and was found to have AVM around the small intestine and large intestine area as well as the distal esophagus. Genitourinary: No symptoms reported Male Genitourinary: No symptoms reported Musculoskeletal: No symptoms reported Skin: No symptoms reported Hematologic/Lymphatic: No symptoms reported Neurological/Psychological: No symptoms reported Physical Exam - Vital signs Vitals: Temp 98.2 F 12/30/ 17:21 Interpretation: Normal, Other - Blood pressure 120/60 heart rate 84 and 100% O2 sat - General General appearance: Alert - HEENT Head: Normocephalic, Atraumatic Eyes: Pale conjunctiva Pupils: PERRL Mouth/Lips: Other - pale Mucous membranes: Other - pale Pharynx: Normal Neck: Normal - Respiratory Respiratory status: No respiratory distress Chest status: Nontender Breath sounds: Normal Chest palpation: Normal - Cardiovascular Rhythm: Regular Heart sounds: Normal auscultation Murmur: No - Abdominal Inspection: Normal Distension: No distension Bowel sounds: Normal Tenderness: Nontender Organomegaly: No organomegaly - Rectal Stool: Black - Back Back: Normal - Extremities General upper extremity: Other - pale hand fissures General lower extremity: Normal inspection - Neurological Neuro grossly intact: Yes Cognition: Normal Orientation: AAOx4 [place] Coma Scale Eye Opening: Spontaneous [place] Coma Scale Verbal: Oriented [place] Coma Scale Motor: Obeys Commands Mcf[place] Coma Scale Total: 15 Speech: Normal Motor strength normal: LUE, RUE, LLE, RLE Sensory: Normal - Psychological Associated symptoms: Normal affect - Skin Skin Temperature: Warm Skin Moisture: Dry Skin Color: Pale Course - Vital Signs Vital signs: Temp Pulse Resp BP Pulse Ox 98.1 F 87 14 120/63 100 12/31/19 20:57 12/31/19 20:57 12/31/19 20:58 12/31/19 20:58 12/31/19 20:58 - Laboratory Result Diagrams: 12/31/19 17:07 12/31/19 17:07 Laboratory results interpreted by me: 12/31/19 12/31/19 12/31/19 17:07 17:07 18:20 RBC 1.95 L Hgb 5.5 L Hct 17.0 L RDW 18.2 H Lymph % (Auto) 11.6 L Eos % (Auto) 6.9 H Sodium 132.4 L Potassium 5.3 H BUN 33 H Creatinine 1.70 H Est GFR ( Amer) 48 L Est GFR (MDRD) Non-Af 40 L Glucose 302 H Alkaline Phosphatase 30 L Total Protein 5.9 L Crossmatch See Detail - EKG Interpretation by Me EKG shows normal: Sinus rhythm Rate: Normal Critical Care Note - Critical Care Note Total time excluding time spent on procedures (mins): 90 Comments: After discussing his case with Dr. Negron who advised transfer, I spoke with Milli air pollution specialist at [facility] at 1910. She will try to arrange for transfer and for hospitalist. Milli called back at 2009 to advised that hospitalist there wants hospitalist at our facility called first. Den Lawton was spoken to at 2011 and he advises we have no GI doctor and oil operator advises transfer and he advises transfer. I spoke with Dr. Erwin at [facility] at 2255 and he refuses acceptance there. I again spoke with Dr. Lawton at 2100 and he accepted the patient because of reevaluation with chronically high troponins and a chronic anemia with multiple transfusions every 2 to 3 weeks. Discharge - Discharge Clinical Impression: Symptomatic anemia, Elevated troponin, Chronic iron deficiency anemia CAD (coronary artery disease) Qualifiers: Coronary Disease-Associated Artery/Lesion type: unspecified vessel or lesion type [place] vs. transplanted heart: [place] heart Associated angina: with stable angina Qualified Code(s): I25.118 - Atherosclerotic heart disease of [place] coronary artery with other forms of angina pectoris Condition: Good Disposition: ADMITTED INPATIENT Admitting Provider: Jered (Hospitalist) Unit Admitted: IMCU Referrals: JESU RICO MD [Primary Care Provider] - Follow up as needed
[2019-12-31 18:17] LABS: HEMOGLOBIN 5.5 g/dL (13.5-17.0)
[2019-12-31] MEDS ORDERED: NORMAL SALINE 250 ML IV PRN ×4 (18:18→21:27)
[2019-12-31 18:20] LABS: ALBUMIN 3.6 g/dL (3.5-5.0); ALKALINE PHOSPHATASE 30 U/L (38-126); ANION GAP 8 (5-19); ASPARTATE AMINO TRANSFERASE 18 U/L (17-59); BILIRUBIN,TOTAL 0.2 mg/dL (0.2-1.3); BLOOD UREA NITROGEN 33 mg/dL (7-20); CALCIUM 9.5 mg/dL (8.4-10.2); CARBON DIOXIDE 25 mmol/L (22-30); CHLORIDE 99 mmol/L (98-107); CREATINE KINASE 61 U/L (55-170); GLUCOSE 302 mg/dL (75-110); POTASSIUM 5.3 mmol/L (3.6-5.0); TOTAL PROTEIN 5.9 g/dL (6.3-8.2)
[2019-12-31 18:26] LABS: CREATINE KINASE MB 1.83 ng/mL (<4.55)
[2019-12-31 18:29] LABS: TROPONIN I 0.311 ng/mL
[2019-12-31 18:33] LABS: MEAN CORPUSCULAR VOLUME 87 fl (80-97)
--- NOTE | 2019-12-31 19:09 | EKG REPORT ---
SEVERITY:- ABNORMAL ECG - SINUS RHYTHM BORDERLINE LEFT AXIS DEVIATION NONSPECIFIC T ABNORMALITIES, LATERAL LEADS : Confirmed by: Emanuel Pedroza MD 31-Dec-2019 19:08:52
[2019-12-31] MEDS ORDERED: SODIUM POLYSTYRENE SULFONATE 15 GM/60 ML PO ONE (21:04)
[2019-12-31] MEDS ORDERED: IPRATROPIUM/ALBUTEROL 0.5-2.5 MG/3 ML AMPUL NEB PRN (21:05)
[2019-12-31] MEDS ORDERED: GLUCAGON,HUMAN RECOMB 1 MG INJ IM PRN (21:05)
[2019-12-31] MEDS ORDERED: DEXTROSE 40% GEL 15 GM TUBE PO PRN ×2 (21:05)
[2019-12-31] MEDS ORDERED: ACETAMINOPHEN 325 MG TABLET PO PRN (21:05)
[2019-12-31] MEDS ORDERED: MAG HYDROX/AL HYDROX/SIMETH SUSP 30 ML UDCUP PO PRN (21:05)
[2019-12-31] MEDS ORDERED: DEXTROSE 50%-WATER 25 GM/50 ML DISP.SYRIN IV PRN ×2 (21:05)
[2019-12-31 21:37] LABS: IRON(TIBC) 16.9 ug/dL (49-181)
[2019-12-31 21:38] LABS: ABSOLUTE RETICS # 0.122 10^6/uL (0.028-0.122); RETICULOCYTE COUNT (AUTO) 6.09 % (0.66-2.85)
[2019-12-31] MEDS: HEPARIN SOD (PORCINE) 5,000 UNIT/ML 1 ML VIAL SUBCUT SCH (22:32)
[2019-12-31] MEDS: INSULIN GLARGINE,HUM.REC.ANLOG 1,000 UNIT/10 ML VIAL SUBCUT SCH (22:42)
[2019-12-31 22:45] LABS: FOLATE 7.96 ng/mL (>2.76)
[2019-12-31] MEDS ORDERED: IRON SUCROSE COMPLEX INJ/PF 100 MG/5 ML SDV IV ONE (23:32)
[2019-12-31] MEDS ORDERED: IRON SUCROSE COMPLEX 300 MG in NORMAL SALINE 250 ML IV ONE (23:45)
[2020-01-01] MEDS ORDERED: IRON SUCROSE COMPLEX INJ/PF 100 MG/5 ML SDV IV PRN (01:38)
--- NOTE | 2020-01-01 03:48 | PDOC H&P ---
History of Present Illness Admission Date/PCP: 12/31/19 21:18 JESU RICO MD Patient complains of: Fatigue and chest pain History of Present Illness: LEIDA BLOUNT is a 74 year old male with a past medical history of CKD 3, chronic pain, coronary artery disease with coronary artery stenting at [facility] 2 months ago, upper and lower GI AVMs with recurrent bleed requiring weekly iron transfusion and blood transfusion every other week. Patient reports shortness of breath with minimal exertion, profound fatigue and presents after substernal chest pain with a grabbing sensation from right to left shoulder. He denies recent change in medication regiment. Patient is scheduled for endoscopy with his passenger service manager Dr. Quiroz at [facility] Thursday January 02, 2020. Patient's commercial loan manager is Dr. Maldonado at [facility]. Today's findings revealed profound anemia with a hemoglobin of 5.5 and an elevated troponin of 0.3 in line with his previous evaluations. He is ordered 2 units of packed red blood cells, chest pain-free and referred to the hospitalist for admission after transfer to [facility] is declined. Past Medical History Cardiac Medical History: Reports: Coronary Artery Disease, Hyperlipidema, Hypertension Denies: Congestive Heart Failure, Myocardial Infarction Pulmonary Medical History: Denies: Asthma, Bronchitis, Chronic Obstructive Pulmonary Disease (COPD), Pneumonia, Tuberculosis Neurological Medical History: Denies: Seizures Endocrine Medical History: Reports: Diabetes Mellitus Type 2 - Insulin-dependent Renal/ Medical History: Denies: End Stage Renal Disease Malignancy Medical History: Reports: Renal (Kidney) Cancer GI Medical History: Reports: Gastroesophageal Reflux Disease Denies: Cirrhosis Musculoskeltal Medical History: Denies: Arthritis Psychiatric Medical History: Denies: Bipolar Disorder, Depression Hematology: Reports: Anemia, Bleeding Tendencies Past Surgical History Past Surgical History: Reports: Appendectomy, Coronary Stent, Vascular Surgery - Right leg stents, Other - Partial left nephrectomy Social History Information Source: Patient, [facility] Records Lives with: Family Smoking Status: Former Smoker Cigarettes Packs Per Day: 2 Electronic Cigarette use?: No Number of Years Smokin Frequency of Alcohol Use: None Hx Recreational Drug Use: No Drugs: None Hx Prescription Drug Abuse: No - Advance Directive Resuscitation Status: Full Code Family History Family History: Hypertension Parental Family History Reviewed: Yes Children Family History Reviewed: Yes Sibling(s) Family History Reviewed.: Yes Medication/Allergy Home Medications: Acetaminophen [Tylenol Extra Strength 500 mg Tablet] 1,000 mg PO DAILYP PRN 08/28/16 Clopidogrel Bisulfate [Plavix 75 mg Tablet] 75 mg PO DAILY 08/28/16 Ezetimibe/Simvastatin [Vytorin 10-40 mg Tablet] 1 each PO DAILY 08/28/16 Fenofibrate [Lofibra] 160 mg PO DAILY 08/28/16 Fentanyl [Duragesic 50 Mcg/Hr Transdermal Patch] 1 each TD Q48H 08/28/16 Finasteride [Proscar 5 mg Tablet] 5 mg PO DAILY 08/28/16 Gabapentin [Neurontin 300 mg Capsule] 300 mg PO Q8 08/28/16 Hydroxyzine Pamoate [Vistaril 25 mg Capsule] 25 mg PO QID 08/28/16 Metformin HCl [Glucophage] 1,000 mg PO BID 08/28/16 Metoprolol Tartrate [Lopressor 50 mg Tablet] 50 mg PO BID 08/28/16 Milnacipran HCl [Savella] 50 mg PO BID 08/28/16 Mometasone Furoate [Nasonex] 2 sprays NASL DAILY 08/28/16 Phenylephrine HCl [Sinus Decongestant] 10 mg PO Q6HP PRN 08/28/16 Pregabalin [Lyrica 100 mg Capsule] 200 mg PO TID 08/28/16 Sitagliptin Phosphate [Januvia 50 mg Tablet] 100 mg PO DAILY 08/28/16 Solifenacin Succinate [Vesicare] 10 mg PO DAILY 08/28/16 Tramadol HCl [Ultram 50 mg Tablet] 50 mg PO Q6HP PRN 08/28/16 Insulin Glargine,Hum.rec.anlog [Basaglar Kwikpen U-100] 20 unit SQ DAILY 10/30/19 Nitroglycerin [Nitrostat 0.4 mg (1/150 Gr) Tabs 25/Bottle] 1 tab SL Q5MP PRN 10/30/19 Triamcinolone Acetonide [24 Hour Nasal Allergy] 1 puff NASL DAILY 10/30/19 Allergies/Adverse Reactions: Sulfa (Sulfonamide Antibiotics) Allergy (Unknown, Verified 06/19/16 01:53) Review of Systems Constitutional: PRESENT: as per HPI, fatigue, weakness. ABSENT: chills, fever(s), headache(s), weight gain, weight loss Eyes: ABSENT: visual disturbances Ears: ABSENT: hearing changes Cardiovascular: ABSENT: chest pain, dyspnea on exertion, edema, orthropnea, palpitations Respiratory: ABSENT: cough, hemoptysis Gastrointestinal: PRESENT: as per HPI, constipation, melena. ABSENT: diarrhea, hematemesis, hematochezia Genitourinary: ABSENT: dysuria, hematuria Musculoskeletal: ABSENT: joint swelling Integumentary: ABSENT: rash, wounds Neurological: ABSENT: abnormal gait, abnormal speech, confusion, dizziness, focal weakness, syncope Psychiatric: ABSENT: anxiety, depression, homidical ideation, suicidal ideation Endocrine: ABSENT: cold intolerance, heat intolerance, polydipsia, polyuria Hematologic/Lymphatic: PRESENT: as per HPI, easy bleeding, easy bruising Physical Exam Vital Signs: Temp Pulse Resp BP Pulse Ox 97.6 F 80 16 140/65 H 99 01/01/20 02:22 01/01/20 02:22 01/01/20 02:22 01/01/20 02:22 01/01/20 02:22 Intake & Output 12/30/19 12/31/19 01/01/20 11:59 11:59 11:59 Intake Total 884 Balance 884 Weight 89.811 kg General appearance: PRESENT: no acute distress, well-developed, well-nourished Head exam: PRESENT: atraumatic, normocephalic Eye exam: PRESENT: conjunctiva pink, conjunctiva pale, EOMI, PERRLA. ABSENT: scleral icterus Ear exam: PRESENT: normal external ear exam Mouth exam: PRESENT: moist, tongue midline Neck exam: ABSENT: carotid bruit, JVD, lymphadenopathy, thyromegaly Respiratory exam: PRESENT: clear to auscultation matthew. ABSENT: rales, rhonchi, wheezes Cardiovascular exam: PRESENT: RRR. ABSENT: diastolic murmur, rubs, systolic murmur Pulses: PRESENT: normal dorsalis pedis pul Vascular exam: PRESENT: normal capillary refill GI/Abdominal exam: PRESENT: normal bowel sounds, soft. ABSENT: distended, guarding, mass, organolmegaly, rebound, tenderness Rectal exam: PRESENT: deferred Extremities exam: PRESENT: full ROM. ABSENT: calf tenderness, clubbing, pedal edema Neurological exam: PRESENT: alert, awake, oriented to person, oriented to place, oriented to time, oriented to situation, CN II-XII grossly intact. ABSENT: motor sensory deficit Psychiatric exam: PRESENT: appropriate affect, normal mood. ABSENT: homicidal ideation, suicidal ideation Skin exam: PRESENT: dry, intact, warm. ABSENT: cyanosis, rash Results Laboratory Results: 12/31/19 17:07 12/31/19 17:07 12/31/19 12/31/19 12/31/19 17:07 17:07 17:07 WBC 4.7 RBC 1.95 L Hgb 5.5 L Hct 17.0 L MCV 87 D MCH 28.1 MCHC 32.2 RDW 18.2 H Plt Count 349 Seg Neutrophils % 72.9 Retic Count (auto) 6.09 H Sodium 132.4 L Potassium 5.3 H Chloride 99 Carbon Dioxide 25 Anion Gap 8 BUN 33 H Creatinine 1.70 H Est GFR ( Amer) 48 L Glucose 302 H Calcium 9.5 Iron TIBC % Saturation Transferrin Ferritin Total Bilirubin 0.2 AST 18 Alkaline Phosphatase 30 L Total Protein 5.9 L Albumin 3.6 Vitamin B12 Folate Blood Type Antibody Screen 12/31/19 12/31/19 12/31/19 17:07 17:07 18:20 WBC RBC Hgb Hct MCV MCH MCHC RDW Plt Count Seg Neutrophils % Retic Count (auto) Sodium Potassium Chloride Carbon Dioxide Anion Gap BUN Creatinine Est GFR ( Amer) Glucose Calcium Iron 16.9 L TIBC 465 H % Saturation 4 Transferrin 412.70 H Ferritin 23.90 Total Bilirubin AST Alkaline Phosphatase Total Protein Albumin Vitamin B12 246.0 Folate 7.96 Blood Type B NEGATIVE Antibody Screen NEGATIVE 12/31/19 12/31/19 12/31/19 17:07 17:07 20:15 Creatine Kinase 61 CK-MB (CK-2) 1.83 Troponin I 0.311 0.363 01/01/20 00:19 Creatine Kinase CK-MB (CK-2) Troponin I 0.425 Impressions: Chest X-Ray 12/31/19 17:22 IMPRESSION: NO ACUTE RADIOGRAPHIC FINDING IN THE CHEST. Assessment and Plan - Diagnosis (1) CAD (coronary artery disease) Qualifiers: Coronary Disease-Associated Artery/Lesion type: unspecified vessel or lesion type [place] vs. transplanted heart: [place] heart Associated angina: with stable angina Qualified Code(s): I25.118 - Atherosclerotic heart disease of [place] coronary artery with other forms of angina pectoris Is this a current diagnosis for this admission?: Yes Plan: Complicated by known coronary artery disease, recurrent GI bleed with anemia. Patient intolerant of dual antiplatelet therapy, Plavix continued. Transfuse 2 units of packed red blood cells, follow-up cardiac enzymes. (2) Chronic iron deficiency anemia Is this a current diagnosis for this admission?: Yes Plan: Secondary to longstanding upper and lower GI AVMs, IV iron, transfused 2 units o f packed red blood cells, follow-up CBC (3) Symptomatic anemia Is this a current diagnosis for this admission?: Yes Plan: Complicated by coronary artery disease, transfused 2 units of packed red blood cells, follow-up surgical consult (4) Diabetes mellitus Qualifiers: Diabetes mellitus type: type 2 Diabetes mellitus middle or intermediate school principal insulin use: with residential use Chronic kidney disease stage: stage 3 (moderate) Is this a current diagnosis for this admission?: Yes Plan: Outpatient regiment with Humalog sliding scale (5) Chronic kidney disease (CKD) Qualifiers: Chronic kidney disease stage: stage 3 (moderate) Qualified Code(s): N18.3 - Chronic kidney disease, stage 3 (moderate) Is this a current diagnosis for this admission?: Yes Plan: Avoid nephrotoxic meds and doses follow-up chemistry - Time Time Spent with patient: 25-34 minutes - Inpatient Certification Medical Necessity: Need Close Monitoring Due to Risk of Patient Decompensation
--- NOTE | 2020-01-01 05:22 | PDOC CONSULTATION ---
Consultation Consult Date: 01/01/20 Provider Consulted: SURGICAL SURGICALIST Consult reason:: anemia, h/o AV malformations History of Present Illness Admission Date/PCP: 12/31/19 21:18 JESU RICO MD History of Present Illness: LEIDA BLOUNT is a 74 year old male with recent coronary intervention, and stent placement. The patient is currently on Plavix. He has a long history of AV malformations (multiple). He is under the care of a GI doctor and dry kiln worker in [place]. The patient presented to the emergency department with chest pain, and found to have a hemoglobin of 5.5. The patient is scheduled to have endoscopies tomorrow in [place]. The patient denies hematochezia or hematemesis. He does report melena. He also complains of weakness, shortness of breath, malaise, fatigue, dizziness. He denies cough, fever, chills, headache. Past Medical History Cardiac Medical History: Reports: Coronary Artery Disease, Hyperlipidema, Hypertension Denies: Congestive Heart Failure, Myocardial Infarction Pulmonary Medical History: Denies: Asthma, Bronchitis, Chronic Obstructive Pulmonary Disease (COPD), Pneumonia, Tuberculosis Neurological Medical History: Denies: Seizures Endocrine Medical History: Reports: Diabetes Mellitus Type 2 - Insulin-dependent Renal/ Medical History: Denies: End Stage Renal Disease Malignancy Medical History: Reports: Renal (Kidney) Cancer GI Medical History: Reports: Gastroesophageal Reflux Disease Denies: Cirrhosis Musculoskeltal Medical History: Denies: Arthritis Psychiatric Medical History: Denies: Bipolar Disorder, Depression Hematology: Reports: Anemia, Bleeding Tendencies Past Surgical History Past Surgical History: Reports: Appendectomy, Coronary Stent, Vascular Surgery - Right leg stents, Other - Partial left nephrectomy Social History Lives with: Family Smoking Status: Former Smoker Cigarettes Packs Per Day: 2 Electronic Cigarette use?: No Number of Years Smokin Frequency of Alcohol Use: None Hx Recreational Drug Use: No Drugs: None Hx Prescription Drug Abuse: No - Advance Directive Resuscitation Status: Full Code Family History Family History: Hypertension Parental Family History Reviewed: Yes Children Family History Reviewed: Yes Sibling(s) Family History Reviewed.: Yes Medication/Allergy Home Medications: Acetaminophen [Tylenol Extra Strength 500 mg Tablet] 1,000 mg PO DAILYP PRN 08/28/16 Clopidogrel Bisulfate [Plavix 75 mg Tablet] 75 mg PO DAILY 08/28/16 Ezetimibe/Simvastatin [Vytorin 10-40 mg Tablet] 1 each PO DAILY 08/28/16 Fenofibrate [Lofibra] 160 mg PO DAILY 08/28/16 Fentanyl [Duragesic 50 Mcg/Hr Transdermal Patch] 1 each TD Q48H 08/28/16 Finasteride [Proscar 5 mg Tablet] 5 mg PO DAILY 08/28/16 Gabapentin [Neurontin 300 mg Capsule] 300 mg PO Q8 08/28/16 Hydroxyzine Pamoate [Vistaril 25 mg Capsule] 25 mg PO QID 08/28/16 Metformin HCl [Glucophage] 1,000 mg PO BID 08/28/16 Metoprolol Tartrate [Lopressor 50 mg Tablet] 50 mg PO BID 08/28/16 Milnacipran HCl [Savella] 50 mg PO BID 08/28/16 Mometasone Furoate [Nasonex] 2 sprays NASL DAILY 08/28/16 Phenylephrine HCl [Sinus Decongestant] 10 mg PO Q6HP PRN 08/28/16 Pregabalin [Lyrica 100 mg Capsule] 200 mg PO TID 08/28/16 Sitagliptin Phosphate [Januvia 50 mg Tablet] 100 mg PO DAILY 08/28/16 Solifenacin Succinate [Vesicare] 10 mg PO DAILY 08/28/16 Tramadol HCl [Ultram 50 mg Tablet] 50 mg PO Q6HP PRN 08/28/16 Insulin Glargine,Hum.rec.anlog [Basaglar Kwikpen U-100] 20 unit SQ DAILY 10/30/19 Nitroglycerin [Nitrostat 0.4 mg (1/150 Gr) Tabs 25/Bottle] 1 tab SL Q5MP PRN 10/30/19 Triamcinolone Acetonide [24 Hour Nasal Allergy] 1 puff NASL DAILY 10/30/19 Allergies/Adverse Reactions: Sulfa (Sulfonamide Antibiotics) Allergy (Unknown, Verified 06/19/16 01:53) Review of Systems Constitutional: PRESENT: fatigue, weakness. ABSENT: chills, fever(s), headache(s) Eyes: ABSENT: visual disturbances Ears: ABSENT: hearing changes Nose, Mouth, and Throat: ABSENT: sore throat Cardiovascular: PRESENT: chest pain, dyspnea on exertion Respiratory: PRESENT: dyspnea. ABSENT: cough Gastrointestinal: PRESENT: melena. ABSENT: abdominal pain, bloating, heartburn, hematemesis, hematochezia, nausea, vomiting Genitourinary: ABSENT: dysuria Musculoskeletal: ABSENT: back pain Neurological: PRESENT: dizziness. ABSENT: confusion, convulsions Psychiatric: ABSENT: anxiety, depression Endocrine: ABSENT: cold intolerance, heat intolerance Physical Exam Vital Signs: Temp Pulse Resp BP Pulse Ox 98.1 F 74 16 132/95 H 100 01/01/20 04:22 01/01/20 04:22 01/01/20 04:22 01/01/20 04:22 01/01/20 04:44 Intake & Output 12/30/19 12/31/19 01/01/20 06:59 06:59 06:59 Intake Total 1184 Balance 1184 Weight 90 kg General appearance: PRESENT: no acute distress, cooperative. ABSENT: disheveled Head exam: PRESENT: atraumatic, normocephalic Eye exam: PRESENT: EOMI, PERRLA. ABSENT: scleral icterus Mouth exam: PRESENT: moist Neck exam: ABSENT: meningismus, tenderness, thyromegaly, tracheal deviation Respiratory exam: PRESENT: unlabored. ABSENT: tachypnea, wheezes Cardiovascular exam: ABSENT: tachycardia Vascular exam: PRESENT: pallor GI/Abdominal exam: PRESENT: soft. ABSENT: distended, firm, rebound, rigid, tenderness Rectal exam: PRESENT: deferred Extremities exam: ABSENT: clubbing Musculoskeletal exam: ABSENT: deformity Neurological exam: PRESENT: alert, awake, oriented to person, oriented to place, oriented to time, oriented to situation, CN II-XII grossly intact. ABSENT: motor sensory deficit Psychiatric exam: ABSENT: agitated, anxious, depressed Focused psych exam: ABSENT: delusional Skin exam: ABSENT: cyanosis, erythema, jaundice Results Laboratory Results: 12/31/19 17:07 12/31/19 17:07 12/31/19 12/31/19 12/31/19 17:07 17:07 17:07 WBC 4.7 RBC 1.95 L Hgb 5.5 L Hct 17.0 L MCV 87 D MCH 28.1 MCHC 32.2 RDW 18.2 H Plt Count 349 Seg Neutrophils % 72.9 Retic Count (auto) 6.09 H Sodium 132.4 L Potassium 5.3 H Chloride 99 Carbon Dioxide 25 Anion Gap 8 BUN 33 H Creatinine 1.70 H Est GFR ( Amer) 48 L Glucose 302 H Calcium 9.5 Iron TIBC % Saturation Transferrin Ferritin Total Bilirubin 0.2 AST 18 Alkaline Phosphatase 30 L Total Protein 5.9 L Albumin 3.6 Vitamin B12 Folate Blood Type Antibody Screen 12/31/19 12/31/19 12/31/19 17:07 17:07 18:20 WBC RBC Hgb Hct MCV MCH MCHC RDW Plt Count Seg Neutrophils % Retic Count (auto) Sodium Potassium Chloride Carbon Dioxide Anion Gap BUN Creatinine Est GFR ( Amer) Glucose Calcium Iron 16.9 L TIBC 465 H % Saturation 4 Transferrin 412.70 H Ferritin 23.90 Total Bilirubin AST Alkaline Phosphatase Total Protein Albumin Vitamin B12 246.0 Folate 7.96 Blood Type B NEGATIVE Antibody Screen NEGATIVE 12/31/19 12/31/19 12/31/19 17:07 17:07 20:15 Creatine Kinase 61 CK-MB (CK-2) 1.83 Troponin I 0.311 0.363 01/01/20 00:19 Creatine Kinase CK-MB (CK-2) Troponin I 0.425 Impressions: Chest X-Ray 12/31/19 17:22 IMPRESSION: NO ACUTE RADIOGRAPHIC FINDING IN THE CHEST. Assessment & Plan - Diagnosis (1) Symptomatic anemia Is this a current diagnosis for this admission?: Yes - Plan Summary Plan Summary: This is a 74-year-old male who underwent recent coronary intervention, and is dependent on Plavix. The patient has a history of AV malformations in his GI tract. The patient's hemoglobin was measured at 5.5, and he presented with chest pain. Surgery has been consulted to evaluate his GI bleeding. The patient is currently scheduled to see his concrete stone fabricating supervisor for endoscopy tomorrow. With a recent coronary intervention, severe anemia, and chest pain it would be inappropriate to subject the patient to any operative intervention at this institution. I recommend transfer to [place] where his dry kiln worker and concrete stone fabricating supervisor are located. They can evaluate the patient and proceed with appropriate therapy at their tertiary institution. This has been discussed with the patient at length. He does not desire operative or endoscopic intervention at this hospital. Surgery will sign off at this time.
[2020-01-01] MEDS: HEPARIN SOD (PORCINE) 5,000 UNIT/ML 1 ML VIAL SUBCUT SCH (05:31)
[2020-01-01] MEDS ORDERED: PANTOPRAZOLE SODIUM 40 MG TABLET.DR PO SCH (06:00)
[2020-01-01 07:37] VITALS: BP 140/55
[2020-01-01] MEDS ORDERED: INSULIN LISPRO 100 UNIT/ML 3 ML VIAL SUBCUT SCH (08:00)
[2020-01-01 08:30] LABS: ABSOLUTE BASOPHILS # (AUTO) 0.1 10^3/uL (0.0-0.2); ABSOLUTE EOSINOPHILS # (AUTO) 0.4 10^3/uL (0.0-0.6); ABSOLUTE LYMPHOCYTES (AUTO) 0.4 10^3/uL (0.5-4.7); ABSOLUTE MONOCYTES (AUTO) 0.4 10^3/uL (0.1-1.4); ABSOLUTE NEUT (AUTO) 5.2 10^3/uL (1.7-8.2); BASOPHILS % (AUTO) 1.5 % (0-2); EOSINOPHILS % (AUTO) 5.9 % (0-6); HEMATOCRIT 30.8 % (37.9-51.0); LYMPHOCYTES % (AUTO) 6.5 % (13-45); MEAN CORPUSCULAR HEMOGLOBIN 28.1 pg (27.0-33.4); MEAN CORPUSCULAR HGB CONC 34.1 g/dL (32.0-36.0); MONOCYTES % (AUTO) 5.5 % (3-13); PLATELET COUNT 289 10^3/uL (150-450); RED BLOOD COUNT 3.74 10^6/uL (4.35-5.55); SEGMENTED NEUTROPHILS % (AUTO) 80.6 % (42-78); TOTAL CELLS COUNTED % (AUTO) 100 %; WHITE BLOOD COUNT 6.5 10^3/uL (4.0-10.5)
[2020-01-01 08:32] LABS: HEMOGLOBIN 10.5 g/dL (13.5-17.0); MEAN CORPUSCULAR VOLUME 82 fl (80-97)
[2020-01-01 08:47] LABS: ANION GAP 9 (5-19); BLOOD UREA NITROGEN 33 mg/dL (7-20); CALCIUM 9.5 mg/dL (8.4-10.2); CARBON DIOXIDE 25 mmol/L (22-30); CHLORIDE 101 mmol/L (98-107); GLUCOSE 174 mg/dL (75-110); POTASSIUM 4.9 mmol/L (3.6-5.0)
[2020-01-01] MEDS: INSULIN GLARGINE,HUM.REC.ANLOG 1,000 UNIT/10 ML VIAL SUBCUT SCH (09:41)
[2020-01-01] MEDS ORDERED: CLOPIDOGREL BISULFATE 75 MG TABLET PO SCH (10:00)
--- NOTE | 2020-01-01 13:54 | PDOC DISCHARGE SUMMARY ---
Impression - Admit/DC Date/PCP Admission Date/Primary Care Provider: 12/31/19 21:18 JESU RICO MD Discharge Date: 01/01/20 - Discharge Diagnosis (1) GI AVM (gastrointestinal arteriovenous vascular malformation) Is this a current diagnosis for this admission?: Yes (2) CAD (coronary artery disease) Is this a current diagnosis for this admission?: Yes (3) Chronic iron deficiency anemia Is this a current diagnosis for this admission?: Yes (4) Chronic kidney disease (CKD) Is this a current diagnosis for this admission?: Yes (5) Elevated troponin Is this a current diagnosis for this admission?: Yes (6) Symptomatic anemia Is this a current diagnosis for this admission?: Yes (7) Diabetes mellitus Is this a current diagnosis for this admission?: Yes - Assessment Summary: Patient was admitted early this morning with chest pain and fatigue as well as chronic anemia. Patient since 1979 has had melena stools. Patient has an established wheel alignment technician and diabetic educator at [facility] in [place]. Fact patient is scheduled for an endoscopy Tuesday in [place]. She was admitted last night through the emergency room with anemia of 5.5 and an elevated troponin of 0.31. Patient's troponins trended up 0.363 then 0.425 then 0.438. CK-MB index last night was normal Deras if you look back at his previous troponins back in October they were also elevated as well. Patient has known coronary disease and has had 7 stents placed I believe in October in [facility]. At the time of admission patient stated he was chest pain-free and this morning patient states he is also chest pain-free. Patient has received 2 units of packed red cells, his hemoglobin coming up to 10.5 Patient was seen by general surgery this morning who did not feel that he was a good candidate for endoscopy at this facility and felt that he should be followed at [facility] where his diabetic educator and wheel alignment technician are located. I concur patient is medically stable, no chest pain, asking to be discharged so he can keep his appointment tomorrow in [place]. I see no reason to keep the patient today any longer, since he is medically stable and asking to be discharged Other labs include sodium 134 potassium 4.9 BUN of 33, patient was admitted his creatinine was 1.70 creatinine today 1.53, calcium 9.5 transferrin 412 EKG on admission showed a sinus rhythm with a left axis deviation, nonspecific T wave changes - Additional Information Resuscitation Status: Full Code Discharge Diet: Cardiac, Diabetic Discharge Activity: Balance Activity w/Rest Referrals: JESU RICO MD [Primary Care Provider] - 01/14/20 1:00 pm (LM to call 01-01-20 ( 11:55) patient wants to schedule since he has other appointments--DJL) Prescriptions: Pantoprazole Sodium [Protonix [address] Tablet] 40 mg PO BID@0600,1700 15 Days #30 tablet.dr Home Medications: Acetaminophen [Tylenol Extra Strength 500 mg Tablet] 1,000 mg PO DAILYP PRN 08/28/16 Clopidogrel Bisulfate [Plavix 75 mg Tablet] 75 mg PO DAILY 08/28/16 Ezetimibe/Simvastatin [Vytorin 10-40 mg Tablet] 1 each PO DAILY 08/28/16 Fenofibrate [Lofibra] 160 mg PO DAILY 08/28/16 Fentanyl [Duragesic 50 Mcg/Hr Transdermal Patch] 1 each TD Q48H 08/28/16 Finasteride [Proscar 5 mg Tablet] 5 mg PO DAILY 08/28/16 Gabapentin [Neurontin 300 mg Capsule] 300 mg PO Q8 08/28/16 Hydroxyzine Pamoate [Vistaril 25 mg Capsule] 25 mg PO QID 08/28/16 Metformin HCl [Glucophage] 1,000 mg PO BID 08/28/16 Metoprolol Tartrate [Lopressor 50 mg Tablet] 50 mg PO BID 08/28/16 Milnacipran HCl [Savella] 50 mg PO BID 08/28/16 Mometasone Furoate [Nasonex] 2 sprays NASL DAILY 08/28/16 Phenylephrine HCl [Sinus Decongestant] 10 mg PO Q6HP PRN 08/28/16 Pregabalin [Lyrica 100 mg Capsule] 200 mg PO TID 08/28/16 Sitagliptin Phosphate [Januvia 50 mg Tablet] 100 mg PO DAILY 08/28/16 Solifenacin Succinate [Vesicare] 10 mg PO DAILY 08/28/16 Tramadol HCl [Ultram 50 mg Tablet] 50 mg PO Q6HP PRN 08/28/16 Insulin Glargine,Hum.rec.anlog [Basaglar Kwikpen U-100] 20 unit SQ DAILY 10/30/19 Nitroglycerin [Nitrostat 0.4 mg (1/150 Gr) Tabs 25/Bottle] 1 tab SL Q5MP PRN 10/30/19 Triamcinolone Acetonide [24 Hour Nasal Allergy] 1 puff NASL DAILY 10/30/19 Acetaminophen [Tylenol 325 mg Tablet] 650 mg PO Q4HP PRN tablet 01/01/20 Clopidogrel Bisulfate [Plavix 75 mg Tablet] 75 mg PO DAILY tablet 01/01/20 Insulin Glargine,Hum.rec.anlog [Lantus Insulin 100 Unit/1 ml 10 ml] 5 unit SUBCUT Q12 unit 01/01/20 Mag Hydrox/Al Hydrox/Simeth [Maalox Plus Susp 30 Udcup] 15 ml PO Q6HP PRN udc 01/01/20 Pantoprazole Sodium [Protonix [address] Tablet] 40 mg PO BID@0600,1700 15 Days #30 tablet. 01/01/20 History of Present Illiness History of Present Illness: LEIDA BLOUNT is a 74 year old male Physical Exam Vital Signs: Temp Pulse Resp BP Pulse Ox 97.8 F 85 16 140/55 H 97 01/01/20 11:46 01/01/20 11:46 01/01/20 11:46 01/01/20 11:46 01/01/20 11:46 Intake & Output 12/31/19 01/01/20 01/02/20 06:59 06:59 06:59 Intake Total 1184 615 Balance 1184 615 Weight 90 kg Results Laboratory Results: WBC 6.5 10^3/uL (4.0-10.5) 01/01/20 07:56 RBC 3.74 10^6/uL (4.35-5.55) L 01/01/20 07:56 Hgb 10.5 g/dL (13.5-17.0) L D 01/01/20 07:56 Hct 30.8 % (37.9-51.0) L 01/01/20 07:56 MCV 82 fl (80-97) D 01/01/20 07:56 MCH 28.1 pg (27.0-33.4) 01/01/20 07:56 MCHC 34.1 g/dL (32.0-36.0) 01/01/20 07:56 RDW 18.0 % (11.5-14.0) H 01/01/20 07:56 Plt Count 289 10^3/uL (150-450) 01/01/20 07:56 Lymph % (Auto) 6.5 % (13-45) L 01/01/20 07:56 Teller % (Auto) 5.5 % (3-13) 01/01/20 07:56 Eos % (Auto) 5.9 % (0-6) 01/01/20 07:56 Baso % (Auto) 1.5 % (0-2) 01/01/20 07:56 Reticulocyte # 0.122 10^6/uL (0.028-0.122) 12/31/19 17:07 Absolute Neuts (auto) 5.2 10^3/uL (1.7-8.2) 01/01/20 07:56 Absolute Lymphs (auto) 0.4 10^3/uL (0.5-4.7) L 01/01/20 07:56 Absolute Monos (auto) 0.4 10^3/uL (0.1-1.4) 01/01/20 07:56 Absolute Eos (auto) 0.4 10^3/uL (0.0-0.6) 01/01/20 07:56 Absolute Basos (auto) 0.1 10^3/uL (0.0-0.2) 01/01/20 07:56 Seg Neutrophils % 80.6 % (42-78) H 01/01/20 07:56 Retic Count (auto) 6.09 % (0.66-2.85) H 12/31/19 17:07 Sodium 134.9 mmol/L (137-145) L 01/01/20 07:56 Potassium 4.9 mmol/L (3.6-5.0) 01/01/20 07:56 Chloride 101 mmol/L (98-107) 01/01/20 07:56 Carbon Dioxide 25 mmol/L (22-30) 01/01/20 07:56 Anion Gap 9 (5-19) 01/01/20 07:56 BUN 33 mg/dL (7-20) H 01/01/20 07:56 Creatinine 1.53 mg/dL (0.52-1.25) H 01/01/20 07:56 Est GFR ( Amer) 54 (>60) L 01/01/20 07:56 Est GFR (MDRD) Non-Af 45 (>60) L 01/01/20 07:56 Glucose 174 mg/dL (75-110) H 01/01/20 07:56 POC Glucose 183 mg/dL (70-110) H 01/01/20 07:27 Calcium 9.5 mg/dL (8.4-10.2) 01/01/20 07:56 Iron 16.9 ug/dL (49-181) L 12/31/19 17:07 TIBC 465 ug/dL (250-450) H 12/31/19 17:07 % Saturation 4 % 12/31/19 17:07 Transferrin 412.70 mg/dL (206.00-381.00) H 12/31/19 17:07 Ferritin 23.90 ng/mL (17.9-464.0) 12/31/19 17:07 Total Bilirubin 0.2 mg/dL (0.2-1.3) 12/31/19 17:07 Direct Bilirubin 0.0 mg/dL (0.0-0.4) 12/31/19 17:07 Neonat Total Bilirubin Not Reportable 12/31/19 17:07 Neonat Direct Bilirubin Not Reportable 12/31/19 17:07 Neonat Indirect Bili Not Reportable 12/31/19 17:07 AST 18 U/L (17-59) 12/31/19 17:07 ALT 14 U/L (<50) 12/31/19 17:07 Alkaline Phosphatase 30 U/L (38-126) L 12/31/19 17:07 Creatine Kinase 61 U/L (55-170) 12/31/19 17:07 CK-MB (CK-2) 1.83 ng/mL (<4.55) 12/31/19 17:07 Troponin I 0.438 ng/mL 01/01/20 07:56 Total Protein 5.9 g/dL (6.3-8.2) L 12/31/19 17:07 Albumin 3.6 g/dL (3.5-5.0) 12/31/19 17:07 Vitamin B12 246.0 pg/mL (239-931) 12/31/19 17:07 Folate 7.96 ng/mL (>2.76) 12/31/19 17:07 Blood Type B NEGATIVE 12/31/19 18:20 Antibody Screen NEGATIVE 12/31/19 18:20 Crossmatch See Detail 12/31/19 18:20 12/31/19 12/31/19 01/01/20 17:07 20:15 00:19 CK-MB (CK-2) 1.83 Troponin I 0.311 0.363 0.425 01/01/20 07:56 CK-MB (CK-2) Troponin I 0.438 Impressions: Chest X-Ray 12/31/19 17:22 IMPRESSION: NO ACUTE RADIOGRAPHIC FINDING IN THE CHEST. Plan Goals: Has appointment for endo Tuesday and Cardio on Stroke Is this a Stroke Patient?: No Acute Heart Failure - Is this a Heart Failure Patient?: No
== END 2020-01-01 12:51 | disposition home or self-care (01) | DRG 812 ==
LOC: ER 17:20 → EH 21:18 → 3W 23:52
PROVIDERS: ADMIT Internal Medicine; ATTEND Physician Assistant
PROC: 30233N1 Transfusion of Nonautologous Red Blood Cells into Peripheral Vein, Percutaneous Approach (ICD-10-PCS; principal; 2019-12-31)
PROC: 30233N1 Transfusion of Nonautologous Red Blood Cells into Peripheral Vein, Percutaneous Approach (ICD-10-PCS; 2019-12-31)
DX: D50.9 Iron deficiency anemia, unspecified (principal); C64.2 Malignant neoplasm of left kidney, except renal pelvis; Q27.33 Arteriovenous malformation of digestive system vessel; E78.00 Pure hypercholesterolemia, unspecified; K21.9 Gastro-esophageal reflux disease without esophagitis; I25.118 Atherosclerotic heart disease of native coronary artery with other forms of angina pectoris; I12.9 Hypertensive chronic kidney disease with stage 1 through stage 4 chronic kidney disease, or unspecified chronic kidney disease; E11.22 Type 2 diabetes mellitus with diabetic chronic kidney disease; N18.3 Chronic kidney disease, stage 3 (moderate); N40.0 Benign prostatic hyperplasia without lower urinary tract symptoms; Z90.5 Acquired absence of kidney; Z95.5 Presence of coronary angioplasty implant and graft; Z86.73 Personal history of transient ischemic attack (TIA), and cerebral infarction without residual deficits; Z79.01 Long term (current) use of anticoagulants; Z79.84 Long term (current) use of oral hypoglycemic drugs; Z79.4 Long term (current) use of insulin; Z79.891 Long term (current) use of opiate analgesic; Z79.899 Other long term (current) drug therapy
CPT/HCPCS: 36415; 36430; 71045; 80048; 80053; 82550; 82553; 82607; 82728; 82746; 82962; 83540; 83550; 84466; 84484; 85025; 85045; 86850; 86900; 86901; 86920; 93005; 93010; 99291; 99292; J1644; J1756; J1815; J3490; J7050; P9016

== ENCOUNTER → 2020-01-09 | Outpatient (CLI) | payer MEDICARE, BC, OTHER ==
[2020-01-09 09:24] LABS: ANION GAP 8 (5-19); BLOOD UREA NITROGEN 32 mg/dL (7-20); CALCIUM 9.9 mg/dL (8.4-10.2); CARBON DIOXIDE 28 mmol/L (22-30); CHLORIDE 101 mmol/L (98-107); CHOLESTEROL 100.35 mg/dL (0-200); GLUCOSE 115 mg/dL (75-110); POTASSIUM 4.5 mmol/L (3.6-5.0); TRIGLYCERIDES 158 mg/dL (<150)
[2020-01-09 09:35] LABS: DIRECT LDL 56 mg/dL (<100)
[2020-01-09 09:40] LABS: VLDL CHOLESTEROL 31.6 mg/dL (10-31)
== END ==
LOC: OD 08:01
PROVIDERS: ATTEND Family Medicine Geriatric Medicine
DX: E78.5 Hyperlipidemia, unspecified (principal); N18.3 Chronic kidney disease, stage 3 (moderate); Z79.899 Other long term (current) drug therapy
CPT/HCPCS: 36415; 80048; 80061; 84460

== ENCOUNTER 2020-03-27 13:15 | Inpatient (IN) | payer MEDICARE, BC, OTHER ==
[2020-03-27 14:09] LABS: ABSOLUTE BASOPHILS # (AUTO) 0.1 10^3/uL (0.0-0.2); ABSOLUTE EOSINOPHILS # (AUTO) 0.2 10^3/uL (0.0-0.6); ABSOLUTE LYMPHOCYTES (AUTO) 0.6 10^3/uL (0.5-4.7); ABSOLUTE MONOCYTES (AUTO) 0.3 10^3/uL (0.1-1.4); ABSOLUTE NEUT (AUTO) 5.4 10^3/uL (1.7-8.2); BASOPHILS % (AUTO) 0.9 % (0-2); EOSINOPHILS % (AUTO) 3.5 % (0-6); HEMATOCRIT 21.9 % (37.9-51.0); LYMPHOCYTES % (AUTO) 9.6 % (13-45); MEAN CORPUSCULAR HEMOGLOBIN 27.5 pg (27.0-33.4); MEAN CORPUSCULAR HGB CONC 32.2 g/dL (32.0-36.0); MEAN CORPUSCULAR VOLUME 85 fl (80-97); MONOCYTES % (AUTO) 5.1 % (3-13); PLATELET COUNT 346 10^3/uL (150-450); RED BLOOD COUNT 2.57 10^6/uL (4.35-5.55); RED CELL DISTRIBUTION WIDTH 15.6 % (11.5-14.0); SEGMENTED NEUTROPHILS % (AUTO) 80.9 % (42-78); TOTAL CELLS COUNTED % (AUTO) 100 %; WHITE BLOOD COUNT 6.7 10^3/uL (4.0-10.5)
[2020-03-27 14:17] LABS: HEMOGLOBIN 7.1 g/dL (13.5-17.0)
[2020-03-27] MEDS ORDERED: NORMAL SALINE 250 ML IV PRN ×2 (14:20)
--- NOTE | 2020-03-27 14:24 | RADIOLOGY REPORT (SQ) ---
EXAM DESCRIPTION: CHEST SINGLE VIEW IMAGES COMPLETED DATE/TIME: 03/27/2020 2:12 pm REASON FOR STUDY: chest pain COMPARISON: 12/31/2019 EXAM PARAMETERS: NUMBER OF VIEWS: One view. TECHNIQUE: Single frontal radiographic view of the chest acquired. RADIATION DOSE: NA LIMITATIONS: None. FINDINGS: LUNGS AND PLEURA: No opacities, masses or pneumothorax. No pleural effusion. MEDIASTINUM AND HILAR STRUCTURES: No masses. Contour normal. HEART AND VASCULAR STRUCTURES: Heart normal in size. Normal vasculature. BONES: No acute findings. HARDWARE: None in the chest. OTHER: No other significant finding. IMPRESSION: NO ACUTE RADIOGRAPHIC FINDING IN THE CHEST. TECHNICAL DOCUMENTATION: JOB ID: [id number] 2010 [employer]- All Rights Reserved Reading location - IP/workstation name: [email or web address]
[2020-03-27 14:29] LABS: ALBUMIN 4.1 g/dL (3.5-5.0); ALKALINE PHOSPHATASE 41 U/L (38-126); ANION GAP 9 (5-19); ASPARTATE AMINO TRANSFERASE 18 U/L (17-59); BILIRUBIN,TOTAL 0.2 mg/dL (0.2-1.3); BLOOD UREA NITROGEN 42 mg/dL (7-20); CALCIUM 10.1 mg/dL (8.4-10.2); CARBON DIOXIDE 23 mmol/L (22-30); CHLORIDE 101 mmol/L (98-107); CREATINE KINASE 50 U/L (55-170); GLUCOSE 394 mg/dL (75-110); POTASSIUM 5.2 mmol/L (3.6-5.0); TOTAL PROTEIN 6.7 g/dL (6.3-8.2)
[2020-03-27 14:40] LABS: CREATINE KINASE MB 2.14 ng/mL (<4.55)
[2020-03-27] MEDS ORDERED: INSULIN REG, HUMAN 100 UNIT/ML 3 ML VIAL (PYX) IV ONE (14:46)
[2020-03-27 14:55] LABS: TROPONIN I 0.26 ng/mL
--- NOTE | 2020-03-27 15:14 | ER Document Report ---
ED Cardiac - General Chief Complaint: Chest Pain Stated Complaint: CHEST PAIN Time Seen by Provider: 03/27/20 13:43 Primary Care Provider: SHYANNE HIGGINS PA-C [Primary Care Provider] - Follow up as needed Mode of Arrival: Ambulatory Information source: Patient TRAVEL OUTSIDE OF THE [place] IN LAST 30 DAYS: No - HPI Notes: Patient comes in complaining of weakness and chest pain. He states the chest pain is been going on for the last 3 days. It is intermittent. He states it does go away with nitroglycerin worse. He states he does get short of breath when he has the episodes. He states he does have 7 stents in his heart from previous coronary artery disease. He states currently he has no pain. 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 He states he has chronic GI bleeding from AVMs. He states that he gets transfused regularly. Patient's chest pain was left-sided and sharp without significant radiation. It is mild to moderate in intensity. - Related Data Allergies/Adverse Reactions: Sulfa (Sulfonamide Antibiotics) Allergy (Unknown, Verified 06/19/16 01:53) Past Medical History - General Information source: Patient - Social History Smoking Status: Former Smoker Frequency of alcohol use: None Drug Abuse: None Family History: Hypertension - Past Medical History Cardiac Medical History: Reports: Hx Coronary Artery Disease, Hx Hypercholesterolemia, Hx Hypertension Denies: Hx Congestive Heart Failure, Hx Heart Attack Pulmonary Medical History: Denies: Hx Asthma, Hx Bronchitis, Hx COPD, Hx Pneumonia, Hx Tuberculosis Neurological Medical History: Reports: Hx Cerebrovascular Accident - 1994, TIA. Denies: Hx Seizures, Hx Parkinson's Disease Endocrine Medical History: Reports: Hx Diabetes Mellitus Type 2 - Insulin- dependent Renal/ Medical History: Reports: Hx Benign Prostatic Hyperplasia, Hx Kidney Stones, Hx Renal Insufficiency. Denies: Hx End Stage Renal Disease Malignancy Medical History: Reports Hx Renal (Kidney) Cancer GI Medical History: Reports: Hx Gastroesophageal Reflux Disease. Denies: Hx Cirrhosis, Hx Ulcer Musculoskeletal Medical History: Denies Hx Arthritis, Denies Hx Multiple Sclerosis Psychiatric Medical History: Denies: Hx Bipolar Disorder, Hx Depression, Hx Schizophrenia Past Surgical History: Reports: Hx Abdominal Surgery - APPENDIX, Hx Appendectomy, Hx Coronary Stent, Hx Kidney (Renal Surgery) - Partial left nephrectomy for renal cell carcinoma, Hx Vascular Surgery - Right leg stents, Other - Partial left nephrectomy. Denies: Hx Adenoidectomy - Immunizations Hx Diphtheria, Pertussis, Tetanus Vaccination: No Hx Pneumococcal Vaccination: 06/08/12 Review of Systems - Review of Systems Constitutional: Weakness. denies: Chills, Fever Cardiovascular: Chest pain. denies: Palpitations Respiratory: Short of breath. denies: Cough -: Yes All other systems reviewed and negative Physical Exam - Vital signs Vitals: Resp BP Pulse Ox 20 154/73 H 100 03/27/20 13:45 03/27/20 13:45 03/27/20 13:45 Interpretation: Hypertensive - General General appearance: Appears well, Alert - HEENT Head: Normocephalic, Atraumatic Eyes: Normal Pupils: PERRL - Respiratory Respiratory status: No respiratory distress Chest status: Nontender Breath sounds: Normal Chest palpation: Normal - Cardiovascular Rhythm: Regular Heart sounds: Normal auscultation Murmur: No - Abdominal Inspection: Normal Distension: No distension Bowel sounds: Normal Tenderness: Nontender Organomegaly: No organomegaly - Back Back: Normal, Nontender - Extremities General upper extremity: Normal inspection, Nontender, Normal color, Normal ROM, Normal temperature General lower extremity: Normal inspection, Nontender, Normal color, Normal ROM, Normal temperature, Normal weight bearing. No: Luis E's sign - Neurological Neuro grossly intact: Yes Cognition: Normal Orientation: AAOx4 Lowell Coma Scale Eye Opening: Spontaneous Stover Coma Scale Verbal: Oriented Stover Coma Scale Motor: Obeys Commands Lowell Coma Scale Total: 15 Speech: Normal Motor strength normal: LUE, RUE, LLE, RLE Sensory: Normal - Psychological Associated symptoms: Normal affect, Normal mood - Skin Skin Temperature: Warm Skin Moisture: Dry Skin Color: Pale Course - Re-evaluation Re-evalutation: 03/27/20 15:11 Patient presents with weakness chest pain and lower GI bleeding. His troponin is elevated. It is chronically elevated. Today's value is the lowest of the values that he has had here previously. currently has no chest pain and appears stable. Patient's EKG has essentially no new changes except for V2 however I believe this is nonspecific and since the patient has no current chest pain reasonable to evaluate the patient here with serial EKGs and enzymes. I did discuss the case with the patient's motorized squad captain. They recommend admission and transfusion. - Vital Signs Vital signs: Temp Pulse Resp BP Pulse Ox 97.6 F 21 H 149/63 H 100 03/27/20 14:27 03/27/20 14:01 03/27/20 14:01 03/27/20 14:01 - Laboratory Result Diagrams: 03/27/20 13:52 03/27/20 13:52 Laboratory results interpreted by me: 03/27/20 03/27/20 03/27/20 13:52 13:52 13:52 RBC 2.57 L Hgb 7.1 L Hct 21.9 L RDW 15.6 H Lymph % (Auto) 9.6 L Seg Neutrophils % 80.9 H Sodium 132.9 L Potassium 5.2 H BUN 42 H Creatinine 1.37 H Est GFR (MDRD) Non-Af 51 L Glucose 394 H Creatine Kinase 50 L Crossmatch See Detail - Diagnostic Test Radiology reviewed: Image reviewed, Reports reviewed - EKG Interpretation by Me EKG shows normal: Sinus rhythm Rate: Tachycardia - "I was literally 5 3 hours is fine and there1 is either [id number] Rhythm: NSR - is doing that Presto/QRS: No: Right axis deviation, Left axis deviation Discharge - Discharge Clinical Impression: Elevated troponin, GI AVM (gastrointestinal arteriovenous vascular malformation) Chest pain Qualifiers: Chest pain type: precordial pain Qualified Code(s): R07.2 - Precordial pain Anemia Qualifiers: Anemia type: iron deficiency Iron deficiency anemia type: chronic blood loss Qualified Code(s): D50.0 - Iron deficiency anemia secondary to blood loss (chronic) Condition: Serious Disposition: ADMITTED INPATIENT Admitting Provider: pauline Unit Admitted: Telemetry Referrals: SHYANNE HIGGINS PA-C [Primary Care Provider] - Follow up as needed
--- NOTE | 2020-03-27 18:39 | EKG REPORT ---
SEVERITY:- OTHERWISE NORMAL ECG - SINUS TACHYCARDIA : Confirmed by: Pablito Mccabe 27-Mar-2020 18:38:08
[2020-03-27] MEDS ORDERED: DEXTROSE 40% GEL 15 GM TUBE PO PRN ×2 (19:04)
[2020-03-27] MEDS ORDERED: GLUCAGON,HUMAN RECOMB 1 MG INJ IM PRN (19:04)
[2020-03-27] MEDS ORDERED: DEXTROSE 50%-WATER 25 GM/50 ML DISP.SYRIN IV PRN ×2 (19:04)
[2020-03-27] MEDS: NITROGLYCERIN 0.4 MG/TAB 25 TAB/BOTTLE SL PRN ×3 (19:28→22:12)
[2020-03-27] MEDS ORDERED: INSULIN GLARGINE HUM REC ANLOG 20 UNIT SQ SCH (22:00)
--- NOTE | 2020-03-27 22:07 | PDOC H&P ---
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 Multiple admissions for GI bleed needing blood transfusion. history of coronary artery disease with stents placed a few months ago currently just on Plavix 75 mg daily. He came in the ED today complaining of body weakness and chest pain that started 3 days prior to admission. Chest pain is on his anterior chest nonradiating, described as burning, not heaviness. Chest pain is relieved by aspirin and nitroglycerin but not completely. According to him he took extra doses of aspirin a few days ago to help with the chest pain. He has chronic melena. He denies any shortness of breath or pal pitations. Seen by his pre kindergarten teacher yesterday and his hemoglobin was noted to be 8.4. Movement in the ED noted to be 7.1. Partnership Marketing Manager spoke to ED physician who recommended 2 units of packed RBC to be transfused. Troponin noted to be chronically elevated at 0.26 EKG showed no acute ST elevation. He was admitted in the medical unit for further evaluation and management Past Medical History Cardiac Medical History: Reports: Coronary Artery Disease - with recent 3 stent placement, Hyperlipidema, Hypertension, Other Denies: Congestive Heart Failure, Myocardial Infarction Pulmonary Medical History: Denies: Asthma, Bronchitis, Chronic Obstructive Pulmonary Disease (COPD), Pneumonia, Tuberculosis Neurological Medical History: Denies: Seizures Endocrine Medical History: Reports: Diabetes Mellitus Type 2 - Insulin-dependent Renal/ Medical History: Denies: End Stage Renal Disease Malignancy Medical History: Reports: Renal (Kidney) Cancer GI Medical History: Reports: Gastroesophageal Reflux Disease, Other - recurrent GI bleed requiring blood transfusion Denies: Cirrhosis Musculoskeltal Medical History: Denies: Arthritis Psychiatric Medical History: Denies: Bipolar Disorder, Depression Hematology: Reports: Anemia, Bleeding Tendencies Past Surgical History Past Surgical History: Reports: Appendectomy, Coronary Stent, Vascular Surgery - Right leg stents, Other - Partial left nephrectomy Social History Smoking Status: Former Smoker Electronic Cigarette use?: No Last Time Smoked: 1982 Frequency of Alcohol Use: None Hx Recreational Drug Use: No Drugs: None Hx Prescription Drug Abuse: No Family History Family History: Hypertension Parental Family History Reviewed: No Children Family History Reviewed: No Sibling(s) Family History Reviewed.: No Medication/Allergy Home Medications: Clopidogrel Bisulfate [Plavix 75 mg Tablet] 75 mg PO DAILY 08/28/16 Fenofibrate [Lofibra] 160 mg PO DAILY 08/28/16 Fentanyl [Duragesic 50 Mcg/Hr Transdermal Patch] 1 each TD Q48H 08/28/16 Finasteride [Proscar 5 mg Tablet] 5 mg PO DAILY 08/28/16 Metformin HCl [Glucophage] 1,000 mg PO BID 08/28/16 Milnacipran HCl [Savella] 50 mg PO BID 08/28/16 Pregabalin [Lyrica 100 mg Capsule] 200 mg PO Q8 08/28/16 Sitagliptin Phosphate [Januvia 50 mg Tablet] 100 mg PO DAILY 08/28/16 Tramadol HCl [Ultram 50 mg Tablet] 50 mg PO Q6HP PRN 08/28/16 Insulin Glargine,Hum.rec.anlog [Basaglar Kwikpen U-100] 20 unit SQ DAILY 10/30/19 Nitroglycerin [Nitrostat 0.4 mg (1/150 Gr) Tabs 25/Bottle] 1 tab SL Q5MP PRN 10/30/19 Albuterol Sulfate [Albuterol Sulfate Hfa] 2 puff IH Q4HP PRN 03/27/20 Diclofenac Sodium 2 gm TOP QIDP PRN 03/27/20 Ezetimibe [Zetia 10 mg Tablet] 10 mg PO DAILY 03/27/20 Furosemide [Lasix 20 mg Tablet] 20 mg PO MOFR@0800 03/27/20 Hydroxyzine HCl [Atarax 10 mg Tablet] 25 mg PO QID 03/27/20 Levocetirizine Dihydrochloride [Xyzal] 5 mg PO QHS 03/27/20 Lisinopril [Prinivil 10 mg Tablet] 10 mg PO DAILY 03/27/20 Mirabegron [Myrbetriq] 25 mg PO DAILY 03/27/20 Rosuvastatin Calcium [Crestor] 20 mg PO QHS 03/27/20 Tiotropium [place] [Spiriva Handihaler 5 Cap/Kit (18 Mcg/Cap)] 1 inh IH DAILY 03/27/20 Allergies/Adverse Reactions: Sulfa (Sulfonamide Antibiotics) Allergy (Unknown, Verified 06/19/16 01:53) Review of Systems Constitutional: PRESENT: weakness Cardiovascular: PRESENT: chest pain Gastrointestinal: PRESENT: melena Physical Exam Vital Signs: Temp Pulse Resp BP Pulse Ox 98.1 F 88 20 133/59 H 100 03/27/20 21:14 03/27/20 21:14 03/27/20 21:14 03/27/20 21:14 03/27/20 21:14 Intake & Output 03/26/20 03/27/20 03/28/20 06:59 06:59 06:59 Intake Total 300 Balance 300 Weight 84.1 kg General appearance: PRESENT: no acute distress Head exam: PRESENT: atraumatic, normocephalic Eye exam: PRESENT: conjunctiva pale, EOMI, PERRLA Mouth exam: PRESENT: moist Neck exam: ABSENT: JVD, lymphadenopathy Respiratory exam: PRESENT: clear to auscultation matthew, unlabored. ABSENT: crackles, rhonchi, stridor Cardiovascular exam: PRESENT: RRR, +S1, +S2 - normal. ABSENT: gallop, rubs Vascular exam: PRESENT: pallor GI/Abdominal exam: PRESENT: normal bowel sounds, soft. ABSENT: distended, rebound, tenderness Neurological exam: PRESENT: alert, awake, oriented to person, oriented to place, oriented to time Psychiatric exam: PRESENT: normal mood Skin exam: PRESENT: pallor Results Laboratory Results: 03/27/20 13:52 03/27/20 13:52 03/27/20 03/27/20 03/27/20 13:52 13:52 13:52 WBC 6.7 RBC 2.57 L Hgb 7.1 L Hct 21.9 L MCV 85 MCH 27.5 MCHC 32.2 RDW 15.6 H Plt Count 346 Seg Neutrophils % 80.9 H Sodium 132.9 L Potassium 5.2 H Chloride 101 Carbon Dioxide 23 Anion Gap 9 BUN 42 H Creatinine 1.37 H Est GFR ( Amer) > 60 Glucose 394 H Calcium 10.1 Total Bilirubin 0.2 AST 18 Alkaline Phosphatase 41 Total Protein 6.7 Albumin 4.1 Blood Type B NEGATIVE Antibody Screen NEGATIVE 03/27/20 03/27/20 03/27/20 13:52 13:52 16:55 Creatine Kinase 50 L CK-MB (CK-2) 2.14 Troponin I 0.260 0.314 Impressions: Chest X-Ray 03/27/20 13:34 IMPRESSION: NO ACUTE RADIOGRAPHIC FINDING IN THE CHEST. Assessment and Plan - Diagnosis (1) Anemia Qualifiers: Anemia type: iron deficiency Iron deficiency anemia type: chronic blood loss Qualified Code(s): D50.0 - Iron deficiency anemia secondary to blood loss (chronic) Is this a current diagnosis for this admission?: Yes Plan: -Hemoglobin yesterday 8.4. Hemoglobin in the ED 7.1 - Patient has a history of chronic GI bleed secondary to AVM -Has been admitted multiple times due to symptomatic anemia requiring blood transfusion -Receives IV iron outpatient -Plan is to transfuse him with 2 units of packed RBC and follow his posttransfusion hemoglobin -PPI IV given while inpatient -Patient is taking Plavix 75 mg daily due to recent stents. will not stop plavix because of this -No indication for endoscopy for now vital signs are stable -May have regular diet (3) Chest pain Qualifiers: Chest pain type: precordial pain Qualified Code(s): R07.2 - Precordial pain Is this a current diagnosis for this admission?: Yes Plan: -Patient has a history of coronary artery disease recently received 3 stents, currently on Plavix 75 mg daily -Patient came in with chest pain burning in character nonradiating no associated shortness of breath. Relieved by aspirin and nitroglycerin -Troponin in the ED 0.26 trended up to 0.31 -EKG reviewed sinus rhythm no ST elevation -This is likely secondary to demand ischemia due to ongoing blood loss -We will continue to trend troponin and EKG -Continue Plavix (4) Elevated troponin Is this a current diagnosis for this admission?: Yes Plan: -Has chronically elevated troponin likely secondary to ongoing blood loss - type II demand ischemia -Continue to trend troponin and EKG - Continue Plavix (5) Diabetes mellitus Qualifiers: Diabetes mellitus type: type 2 Diabetes mellitus exterminator helper termite insulin use: with senior living use Chronic kidney disease stage: stage 3 (moderate) Is this a current diagnosis for this admission?: Yes Plan: -Continue Lantus 20 units with sliding scale insulin -Accu-Cheks and hypoglycemia protocol -Will hold his oral medications for now (6) CAD (coronary artery disease) Qualifiers: Coronary Disease-Associated Artery/Lesion type: unspecified vessel or lesion type [place] vs. transplanted heart: [place] heart Associated angina: with stable angina Qualified Code(s): I25.118 - Atherosclerotic heart disease of [place] coronary artery with other forms of angina pectoris Is this a current diagnosis for this admission?: Yes Plan: -Recently received 3 stents. On Plavix 75 mg daily. Simvastatin ezetimibe metoprolol, nitroglycerin as needed -Came in with chest pain -Troponin trended up from 0.26 to 0.31 -EKG no ST elevation sinus rhythm -Likely type II demand ischemia from ongoing blood loss -Continue Plavix - Time Time Spent with patient: 25-34 minutes Medications reviewed and adjusted accordingly: Yes Anticipated Discharge Disposition: Home, Self Care Anticipated Discharge Timeframe: within 48 hours - Inpatient Certification Medical Necessity: Risk of Complication if Not Cared For in Hospital
[2020-03-27] MEDS: INSULIN GLARGINE,HUM.REC.ANLOG 1,000 UNIT/10 ML VIAL SUBCUT SCH (23:18)
[2020-03-28] MEDS: NITROGLYCERIN 2% OINTMENT 1 GM PACKET TP SCH ×2 (00:01→05:24)
[2020-03-28] MEDS: PANTOPRAZOLE SODIUM 40 MG VIAL IV SCH ×3 (00:19→22:14)
[2020-03-28 02:38] LABS: ABSOLUTE EOSINOPHILS # (AUTO) 0.3 10^3/uL (0.0-0.6); ABSOLUTE LYMPHOCYTES (AUTO) 0.8 10^3/uL (0.5-4.7); ABSOLUTE MONOCYTES (AUTO) 0.5 10^3/uL (0.1-1.4); ABSOLUTE NEUT (AUTO) 4.2 10^3/uL (1.7-8.2); BASOPHILS % (AUTO) 0.8 % (0-2); EOSINOPHILS % (AUTO) 5.2 % (0-6); HEMATOCRIT 25.8 % (37.9-51.0); HEMOGLOBIN 8.5 g/dL (13.5-17.0); LYMPHOCYTES % (AUTO) 13.5 % (13-45); MEAN CORPUSCULAR HEMOGLOBIN 28.1 pg (27.0-33.4); MEAN CORPUSCULAR VOLUME 85 fl (80-97); MONOCYTES % (AUTO) 8.8 % (3-13); PLATELET COUNT 260 10^3/uL (150-450); RED BLOOD COUNT 3.02 10^6/uL (4.35-5.55); RED CELL DISTRIBUTION WIDTH 14.8 % (11.5-14.0); SEGMENTED NEUTROPHILS % (AUTO) 71.7 % (42-78); TOTAL CELLS COUNTED % (AUTO) 100 %; WHITE BLOOD COUNT 5.9 10^3/uL (4.0-10.5)
[2020-03-28 07:58] LABS: ANION GAP 7 (5-19); BLOOD UREA NITROGEN 34 mg/dL (7-20); CALCIUM 9.5 mg/dL (8.4-10.2); CARBON DIOXIDE 27 mmol/L (22-30); CHLORIDE 107 mmol/L (98-107); GLUCOSE 179 mg/dL (75-110); POTASSIUM 4.4 mmol/L (3.6-5.0)
[2020-03-28] MEDS ORDERED: NORMAL SALINE 250 ML IV PRN ×2 (08:35)
--- NOTE | 2020-03-28 09:46 | PDOC TRANSFER SUMMARY ---
General Admission Date/PCP: 03/27/20 16:45 JESU RICO MD Admission Date: 03/27/20 Transfer Date: 03/28/20 Accepting Facility: [facility] Accepting Physician: Dr. Gaxiola Resuscitation Status: Full Code - Transfer Diagnosis (1) Symptomatic anemia Is this a current diagnosis for this admission?: Yes Diagnosis Summary: Patient has chronic ANA secondary to recurrent GI bleeding from recurrent AVM not amenable to surgery. He has received multiple blood transfusion in the past due symptomatic anemia, most recent in November. He receives IV iron outpatient - came in the ED with hgb 7.1 from 8.4 previous day - s/p 2 units PRBC, repeat hgb post trans 8.5 - ongoing 3rd unit of PRBC (2) Chest pain Is this a current diagnosis for this admission?: Yes Diagnosis Summary: - came in due to non exertional chest pain relieved by aspirin and NTG intake. He has a history of CAD with stent placement october [address] faye Maldonado at [facility]. He was initially on DAPT but aspirin was stopped after 4 weeks due to worsening GI bleed. Currently on plavix 75. EKG NSR no ST elevation in the ED, Trop 0.26 which trended up to 1.79 (3) Elevated troponin Is this a current diagnosis for this admission?: Yes Diagnosis Summary: Trop 0.26 ->0.31->1.79. EKG sinus rhythm no ST elevation (4) Diabetes mellitus Is this a current diagnosis for this admission?: Yes Diagnosis Summary: - on insulin 20 U daily (5) CAD (coronary artery disease) Is this a current diagnosis for this admission?: Yes Diagnosis Summary: -came in due to non exertional chest pain relieved by aspirin and NTG intake. He has a history of CAD with stent placement october [address] faye Maldonado at [facility]. He was initially on DAPT but aspirin was stopped after 4 weeks due to worsening GI bleed. Currently on plavix 75. EKG NSR no ST elevation in the ED, Trop 0.26 which trended up to 1.79 - in house cardiology consulted who recommend 1 more unit of blood,start imdur and trend troponin. Also advised transfer to [facility] - Transfer Medications Home Medications: Clopidogrel Bisulfate [Plavix 75 mg Tablet] 75 mg PO DAILY 08/28/16 Fenofibrate [Lofibra] 160 mg PO DAILY 08/28/16 Fentanyl [Duragesic 50 Mcg/Hr Transdermal Patch] 1 each TD Q48H 08/28/16 Finasteride [Proscar 5 mg Tablet] 5 mg PO DAILY 08/28/16 Metformin HCl [Glucophage] 1,000 mg PO BID 08/28/16 Milnacipran HCl [Savella] 50 mg PO BID 08/28/16 Pregabalin [Lyrica 100 mg Capsule] 200 mg PO Q8 08/28/16 Sitagliptin Phosphate [Januvia 50 mg Tablet] 100 mg PO DAILY 08/28/16 Tramadol HCl [Ultram 50 mg Tablet] 50 mg PO Q6HP PRN 08/28/16 Insulin Glargine,Hum.rec.anlog [Basaglar Kwikpen U-100] 20 unit SQ DAILY 10/30/19 Nitroglycerin [Nitrostat 0.4 mg (1/150 Gr) Tabs 25/Bottle] 1 tab SL Q5MP PRN 10/30/19 Albuterol Sulfate [Albuterol Sulfate Hfa] 2 puff IH Q4HP PRN 03/27/20 Diclofenac Sodium 2 gm TOP QIDP PRN 03/27/20 Ezetimibe [Zetia 10 mg Tablet] 10 mg PO DAILY 03/27/20 Furosemide [Lasix 20 mg Tablet] 20 mg PO MOFR@0800 03/27/20 Hydroxyzine HCl [Atarax 10 mg Tablet] 25 mg PO QID 03/27/20 Levocetirizine Dihydrochloride [Xyzal] 5 mg PO QHS 03/27/20 Lisinopril [Prinivil 10 mg Tablet] 10 mg PO DAILY 03/27/20 Mirabegron [Myrbetriq] 25 mg PO DAILY 03/27/20 Rosuvastatin Calcium [Crestor] 20 mg PO QHS 03/27/20 Tiotropium [place] [Spiriva Handihaler 5 Cap/Kit (18 Mcg/Cap)] 1 inh IH DAILY 03/27/20 Transfer Medications: Current Medications Clopidogrel Bisulfate (Plavix 75 Mg Tablet) 75 mg PO DAILY [facility] Stop: 04/27/20 09:59 Dextrose (Dextrose Inj 50% Syringe (25 Gm/50 Ml)) 12.5 gm IV PRN PRN; Protocol PRN Reason: FOR BG 50-69 IN ALERT PATIENT Stop: 04/26/20 19:03 Dextrose (Dextrose Inj 50% Syringe (25 Gm/50 Ml)) 25 gm IV PRN PRN; Protocol PRN Reason: PER PROTOCOL Stop: 04/26/20 19:03 Glucagon (Glucagen Inj 1 Mg Vial) 1 mg IM PRN PRN; Protocol PRN Reason: Evaluate for BG < 70 Stop: 04/26/20 19:03 Glucose (Glutose 40% Gel 15 Gm Tube) 15 gm PO PRN PRN; Protocol PRN Reason: FOR BG 50-69 IN ALERT PATIENT Stop: 04/26/20 19:03 Glucose (Glutose 40% Gel 15 Gm Tube) 30 gm PO PRN PRN; Protocol PRN Reason: FOR BG < 50 IN ALERT PATIENT Stop: 04/26/20 19:03 Sodium Chloride (Nacl 0.9% 250 Ml Iv Soln) 250 mls @ 30 mls/hr IV .DURING TRANSFUSION PRN PRN Reason: THIS MED IS NOT "PRN" Stop: 03/28/20 14:19 Sodium Chloride (Nacl 0.9% 250 Ml Iv Soln) 250 mls @ 0 mls/hr IV CONTINUOUS PRN PRN Reason: AFTER EACH UNIT Stop: 03/28/20 14:19 Sodium Chloride (Nacl 0.9% 250 Ml Iv Soln) 250 mls @ 30 mls/hr IV .DURING TRANSFUSION PRN PRN Reason: THIS MED IS NOT "PRN" Stop: 03/29/20 08:34 Sodium Chloride (Nacl 0.9% 250 Ml Iv Soln) 250 mls @ 0 mls/hr IV CONTINUOUS PRN PRN Reason: AFTER EACH UNIT Stop: 03/29/20 08:34 Insulin Glargine (Lantus Insulin 100 Unit/1 Ml 10 Ml) 20 unit SUBCUT QHS [facility] Stop: 04/26/20 21:59 Last Admin: 03/27/20 23:18 Dose: 20 unit Documented by: Insulin Human Lispro (Humalog Insulin 100 Unit/1 Ml 3 Ml Vial) 0 - 12 unit SUBCUT ACBRKFST [facility]; Protocol Stop: 04/27/20 07:59 Isosorbide Mononitrate (Imdur 30 Mg Tablet.Er) 30 mg PO DAILY [facility] Stop: 04/27/20 09:59 Nitroglycerin (Nitrostat 0.4 Mg (1/150 Gr) Tabs 25/Bottle) 1 tab SL Q5MP PRN PRN Reason: CHEST PAIN Stop: 04/26/20 18:58 Last Admin: 03/27/20 22:12 Dose: 1 tab Documented by: Pantoprazole Sodium (Protonix Iv Inj 40 Mg Vial) 40 mg IV Q12 [facility] Stop: 04/03/20 21:59 Last Admin: 03/28/20 00:19 Dose: 40 mg Documented by: Sodium Chloride (Saline Flush 2.5 Ml Monoject Prefil Syrin) 2.5 ml IV Q8 [facility] Stop: 04/27/20 05:59 Last Admin: 03/28/20 05:25 Dose: 2.5 ml Documented by: Tramadol HCl (Ultram 50 Mg Tablet) 50 mg PO Q6HP PRN PRN Reason: FOR PAIN Stop: 04/03/20 18:58 - Allergies Allergies/Adverse Reactions: Sulfa (Sulfonamide Antibiotics) Allergy (Unknown, Verified 06/19/16 01:53) - Diet/Activity Discharge Diet: Cardiac Discharge Activity: Bedrest Hospital Course Hospital Course: Eligio Rosenberg 74//m, hx of CAD recent stent placement October 2019, hx of chronic anemia secondary to recurrent GI bleed from chronic AVM, multiple blood trans fusion encounter who was admitted in [place] yestreday due to a hgb of 7.1, chest pain and weakness. Chest pain is non exertional relieved by aspirin and nitro. He was seen by [facility] Tuesday who noted hgb of 8.4. Repeat hgb day after was 7.1 hence he was advised to go to ED to be admitted for transfusion. Troponin noted to be 0.2 in the ED, EKG no ST elevation. He received 2 units PRBC repeat hgb 8 .5. Troponin trended up to 1.79 with on and off chest pain, no EKG changes. Dr. Cobry Pete consulted who recommended [facility] transfer. 1 more unit of PRBC ordered. Physical Exam Vital Signs: Temp Pulse Resp BP Pulse Ox 97.7 F 80 20 148/70 H 100 03/28/20 07:36 03/28/20 07:36 03/28/20 07:36 03/28/20 07:36 03/28/20 07:36 Intake & Output 03/27/20 03/28/20 03/29/20 06:59 06:59 06:59 Intake Total 850 Output Total 425 Balance 425 Weight 82.8 kg General appearance: PRESENT: no acute distress Head exam: PRESENT: atraumatic, normocephalic Eye exam: PRESENT: conjunctiva pale, EOMI, PERRLA Mouth exam: PRESENT: moist Neck exam: ABSENT: JVD Respiratory exam: PRESENT: clear to auscultation matthew, symmetrical, unlabored Cardiovascular exam: PRESENT: RRR, +S1, +S2 - normal Pulses: PRESENT: +2 pedal pulses bilateral Vascular exam: PRESENT: pallor GI/Abdominal exam: PRESENT: normal bowel sounds, soft. ABSENT: rebound, tenderness Extremities exam: PRESENT: full ROM. ABSENT: calf tenderness Musculoskeletal exam: PRESENT: ambulatory, full ROM Neurological exam: PRESENT: alert, awake, oriented to person, oriented to place Psychiatric exam: PRESENT: normal mood Results Laboratory Results: 03/28/20 02:25 03/28/20 05:23 03/27/20 03/27/20 03/27/20 13:52 13:52 13:52 WBC 6.7 RBC 2.57 L Hgb 7.1 L Hct 21.9 L MCV 85 MCH 27.5 MCHC 32.2 RDW 15.6 H Plt Count 346 Seg Neutrophils % 80.9 H Sodium 132.9 L Potassium 5.2 H Chloride 101 Carbon Dioxide 23 Anion Gap 9 BUN 42 H Creatinine 1.37 H Est GFR ( Amer) > 60 Glucose 394 H Calcium 10.1 Total Bilirubin 0.2 AST 18 Alkaline Phosphatase 41 Total Protein 6.7 Albumin 4.1 Blood Type B NEGATIVE Antibody Screen NEGATIVE 03/28/20 03/28/20 02:25 05:23 WBC 5.9 RBC 3.02 L Hgb 8.5 L Hct 25.8 L MCV 85 MCH 28.1 MCHC 33.0 RDW 14.8 H Plt Count 260 Seg Neutrophils % 71.7 Sodium 140.6 Potassium 4.4 Chloride 107 Carbon Dioxide 27 Anion Gap 7 BUN 34 H Creatinine 1.23 Est GFR ( Amer) > 60 Glucose 179 H Calcium 9.5 Total Bilirubin AST Alkaline Phosphatase Total Protein Albumin Blood Type Antibody Screen 03/27/20 03/27/20 03/27/20 13:52 13:52 16:55 Creatine Kinase 50 L CK-MB (CK-2) 2.14 Troponin I 0.260 0.314 03/27/20 03/28/20 03/28/20 22:40 05:23 05:23 Creatine Kinase 87 CK-MB (CK-2) Troponin I 0.877 1.790 03/28/20 05:23 Creatine Kinase CK-MB (CK-2) 5.12 H Troponin I Impressions: Chest X-Ray 03/27/20 13:34 IMPRESSION: NO ACUTE RADIOGRAPHIC FINDING IN THE CHEST. Plan Discharge Plan: Patient transferred to [facility] for further management Time Spent: Greater than 30 Minutes
--- NOTE | 2020-03-28 10:09 | EKG REPORT ---
SEVERITY:- ABNORMAL ECG - SINUS RHYTHM NONSPECIFIC REPOL ABNORMALITY, DIFFUSE LEADS : Confirmed by: Pablito Mccabe 28-Mar-2020 10:09:06
--- NOTE | 2020-03-28 10:09 | EKG REPORT ---
SEVERITY:- NORMAL ECG - SINUS RHYTHM : Confirmed by: Pablito Mccabe 28-Mar-2020 10:08:55
[2020-03-28] MEDS: INSULIN LISPRO 100 UNIT/ML 3 ML VIAL SUBCUT SCH (10:39)
[2020-03-28] MEDS: CLOPIDOGREL BISULFATE 75 MG TABLET PO SCH (10:41)
[2020-03-28] MEDS: ISOSORBIDE MONONITRATE 30 MG TAB.ER.24H PO SCH (10:41)
--- NOTE | 2020-03-28 12:56 | PDOC CONSULTATION ---
Consultation Consult Date: 03/28/20 Attending physician:: DHARMESH VILLAVICENCIO Provider Consulted: DONTE SIERRA Consult reason:: Elevated troponin History of Present Illness Admission Date/PCP: 03/27/20 16:45 JESU RICO MD Patient complains of: Chest pain History of Present Illness: LEIDA BLOUNT is a 74 year old male with the following active problems 1. Coronary artery disease 2. Multiple PCI 3. Systemic hypertension 4. Dyslipidemia 5. Gastrointestinal AV malformations 6. Blood loss anemia 7. GI bleeding 8. Peripheral vascular disease 72-year-old male who has received multiple coronary stents at outside hospital presented with chest pain. He was found to be anemic at the hematology office and was asked to report to the hospital. Patient reports melena. He is known to have gastrointestinal AV malformations. Patient reports that some of the AV malformations in the stomach were embolized during a procedure in October 2019. Subsequently patient received stents to unknown vessel in December 2019. Since then he has done fairly well but has lately started developing chest pain. His hemoglobin at presentation was below 8 g/dL and he received 1 unit of blood. He was mildly symptomatic with chest pain prior to this. At the time of my evaluation patient's chest pain is resolved completely. His troponin was also elevated another troponin is pending at the time of my evaluation Patient is a non-smoker Reports multiple peripheral angioplasties and stents. He also reports multiple PCI's. No implants or other surgeries No familial illnesses Review of systems is positive for melena, chest pain, fatigue. Full 11 review of systems was asked. Pertinent positives noted here and in the HPI all other systems negative. Past Medical History Cardiac Medical History: Reports: Coronary Artery Disease - with recent 3 stent placement, Hyperlipidema, Hypertension, Other Denies: Congestive Heart Failure, Myocardial Infarction Pulmonary Medical History: Denies: Asthma, Bronchitis, Chronic Obstructive Pulmonary Disease (COPD), Pneumonia, Tuberculosis Neurological Medical History: Denies: Seizures Endocrine Medical History: Reports: Diabetes Mellitus Type 2 - Insulin-dependent Renal/ Medical History: Denies: End Stage Renal Disease Malignancy Medical History: Reports: Renal (Kidney) Cancer GI Medical History: Reports: Gastroesophageal Reflux Disease, Other - recurrent GI bleed requiring blood transfusion Denies: Cirrhosis Musculoskeltal Medical History: Denies: Arthritis Psychiatric Medical History: Denies: Bipolar Disorder, Depression Hematology: Reports: Anemia, Bleeding Tendencies Past Surgical History Past Surgical History: Reports: Appendectomy, Coronary Stent, Vascular Surgery - Right leg stents, Other - Partial left nephrectomy Social History Smoking Status: Former Smoker Electronic Cigarette use?: No Last Time Smoked: 1982 Frequency of Alcohol Use: None Hx Recreational Drug Use: No Drugs: None Hx Prescription Drug Abuse: No - Advance Directive Resuscitation Status: Full Code Family History Family History: Hypertension Parental Family History Reviewed: Yes - No familial illnesses reported Children Family History Reviewed: NA Sibling(s) Family History Reviewed.: NA Medication/Allergy Home Medications: Clopidogrel Bisulfate [Plavix 75 mg Tablet] 75 mg PO DAILY 08/28/16 Fenofibrate [Lofibra] 160 mg PO DAILY 08/28/16 Fentanyl [Duragesic 50 Mcg/Hr Transdermal Patch] 1 each TD Q48H 08/28/16 Finasteride [Proscar 5 mg Tablet] 5 mg PO DAILY 08/28/16 Metformin HCl [Glucophage] 1,000 mg PO BID 08/28/16 Milnacipran HCl [Savella] 50 mg PO BID 08/28/16 Pregabalin [Lyrica 100 mg Capsule] 200 mg PO Q8 08/28/16 Sitagliptin Phosphate [Januvia 50 mg Tablet] 100 mg PO DAILY 08/28/16 Tramadol HCl [Ultram 50 mg Tablet] 50 mg PO Q6HP PRN 08/28/16 Insulin Glargine,Hum.rec.anlog [Basaglar Kwikpen U-100] 20 unit SQ DAILY 10/30/19 Nitroglycerin [Nitrostat 0.4 mg (1/150 Gr) Tabs 25/Bottle] 1 tab SL Q5MP PRN 10/30/19 Albuterol Sulfate [Albuterol Sulfate Hfa] 2 puff IH Q4HP PRN 03/27/20 Diclofenac Sodium 2 gm TOP QIDP PRN 03/27/20 Ezetimibe [Zetia 10 mg Tablet] 10 mg PO DAILY 03/27/20 Furosemide [Lasix 20 mg Tablet] 20 mg PO MOFR@0800 03/27/20 Hydroxyzine HCl [Atarax 10 mg Tablet] 25 mg PO QID 03/27/20 Levocetirizine Dihydrochloride [Xyzal] 5 mg PO QHS 03/27/20 Lisinopril [Prinivil 10 mg Tablet] 10 mg PO DAILY 03/27/20 Mirabegron [Myrbetriq] 25 mg PO DAILY 03/27/20 Rosuvastatin Calcium [Crestor] 20 mg PO QHS 03/27/20 Tiotropium Cromona [Spiriva Handihaler 5 Cap/Kit (18 Mcg/Cap)] 1 inh IH DAILY 03/27/20 Dextrose 50%-Water [Dextrose Inj 50% Syringe (25 gm/50 ml)] 12.5 gm IV PRN PRN disp.syrin 03/28/20 Dextrose 50%-Water [Dextrose Inj 50% Syringe (25 gm/50 ml)] 25 gm IV PRN PRN disp.syrin 03/28/20 Dextrose [Glutose 40% Gel 15 gm Tube] 15 gm PO PRN PRN tube 03/28/20 Dextrose [Glutose 40% Gel 15 gm Tube] 30 gm PO PRN PRN tube 03/28/20 Glucagon,Human Recombinant [Glucagen Inj 1 mg Vial] 1 mg IM PRN PRN vial 03/28/20 Insulin Glargine,Hum.rec.anlog [Lantus Insulin 100 Unit/1 ml 10 ml] 20 unit SUBCUT QHS unit 03/28/20 Insulin Lispro [Humalog Insulin (Lispro) 100 unit/mL] 0 - 12 unit SUBCUT ACBRKFST unit 03/28/20 Isosorbide Mononitrate [Imdur 30 mg Tablet.er] 30 mg PO DAILY tab.er.24h 03/28/20 Nitroglycerin [Nitrostat 0.4 mg (1/150 Gr) Tabs 25/Bottle] 1 tab SL Q5MP PRN bottle 03/28/20 Normal Saline [Saline Flush 2.5 ml Monoject Prefil Syrin] 2.5 ml IV Q8 disp.syrin 03/28/20 Pantoprazole Sodium [Protonix IV Inj 40 mg Vial] 40 mg IV Q12 vial 03/28/20 Allergies/Adverse Reactions: Sulfa (Sulfonamide Antibiotics) Allergy (Unknown, Verified 06/19/16 01:53) Review of Systems Constitutional: PRESENT: as per HPI, fatigue Eyes: PRESENT: as per HPI Ears: ABSENT: as per HPI, hearing changes, other Breasts: ABSENT: as per HPI, other Cardiovascular: PRESENT: chest pain Respiratory: PRESENT: dyspnea Gastrointestinal: PRESENT: melena Neurological: ABSENT: as per HPI, abnormal gait, abnormal movements, abnormal speech, confusion, convulsions, dizziness, focal weakness, frequent falls, lack of coordination, memory loss, numbness, paresthesias, restless legs, syncope, tingling, tremor(s), vertigo, weakness, other Psychiatric: ABSENT: as per HPI, anxiety, depression, hallucinations, homidical ideation, suicidal ideation, other Endocrine: ABSENT: as per HPI, cold intolerance, flushing, heat intolerance, menstrual abnormalities, polydipsia, polyphagia, polyuria, other Hematologic/Lymphatic: ABSENT: as per HPI, easy bleeding, easy bruising, lymphadenopathy, other Physical Exam Vital Signs: Temp Pulse Resp BP Pulse Ox 97.8 F 79 16 139/58 H 100 03/28/20 11:55 03/28/20 11:55 03/28/20 11:55 03/28/20 11:55 03/28/20 11:55 Intake & Output 03/27/20 03/28/20 03/29/20 06:59 06:59 06:59 Intake Total 850 470 Output Total 425 Balance 425 470 Weight 82.8 kg General appearance: PRESENT: no acute distress, cooperative, well-developed, well-nourished Head exam: PRESENT: atraumatic, normocephalic Eye exam: PRESENT: conjunctiva pale Ear exam: PRESENT: normal external ear exam Mouth exam: PRESENT: moist Respiratory exam: PRESENT: clear to auscultation matthew, symmetrical, unlabored Cardiovascular exam: PRESENT: RRR, +S1, +S2, systolic murmur Pulses: PRESENT: normal radial pulses GI/Abdominal exam: PRESENT: soft Rectal exam: PRESENT: deferred Neurological exam: PRESENT: alert, awake, oriented to person, oriented to place, oriented to time, oriented to situation Psychiatric exam: PRESENT: appropriate affect Skin exam: PRESENT: dry, intact, pallor Results Laboratory Results: 03/28/20 02:25 03/28/20 05:23 03/27/20 03/27/20 03/27/20 13:52 13:52 13:52 WBC 6.7 RBC 2.57 L Hgb 7.1 L Hct 21.9 L MCV 85 MCH 27.5 MCHC 32.2 RDW 15.6 H Plt Count 346 Seg Neutrophils % 80.9 H Sodium 132.9 L Potassium 5.2 H Chloride 101 Carbon Dioxide 23 Anion Gap 9 BUN 42 H Creatinine 1.37 H Est GFR ( Amer) > 60 Glucose 394 H Calcium 10.1 Total Bilirubin 0.2 AST 18 Alkaline Phosphatase 41 Total Protein 6.7 Albumin 4.1 Blood Type B NEGATIVE Antibody Screen NEGATIVE 03/28/20 03/28/20 02:25 05:23 WBC 5.9 RBC 3.02 L Hgb 8.5 L Hct 25.8 L MCV 85 MCH 28.1 MCHC 33.0 RDW 14.8 H Plt Count 260 Seg Neutrophils % 71.7 Sodium 140.6 Potassium 4.4 Chloride 107 Carbon Dioxide 27 Anion Gap 7 BUN 34 H Creatinine 1.23 Est GFR ( Amer) > 60 Glucose 179 H Calcium 9.5 Total Bilirubin AST Alkaline Phosphatase Total Protein Albumin Blood Type Antibody Screen 03/27/20 03/27/20 03/27/20 13:52 13:52 16:55 Creatine Kinase 50 L CK-MB (CK-2) 2.14 Troponin I 0.260 0.314 03/27/20 03/28/20 03/28/20 22:40 05:23 05:23 Creatine Kinase 87 CK-MB (CK-2) Troponin I 0.877 1.790 03/28/20 03/28/20 05:23 10:40 Creatine Kinase CK-MB (CK-2) 5.12 H Troponin I 1.690 EKG Comments: Transthoracic echocardiogram 05/23/2019 Left ventricular ejection fraction is within normal limits Trace to mild mitral regurgitation No aortic valve stenosis Twelve-lead EKG 03/28/2020 Independently viewed by me. Sinus tachycardia 109 bpm, normal AV conduction, QTC is 440 ms Twelve-lead EKG 03/27/20202032 Sinus rhythm, 91 bpm, mild ST depression in multiple leads QTC is 443 ms, minimal ST elevation in V1 and V2 Troponin I 03/27/2020 1352-0.260 03/27/2020 1655-0.314 03/27/2020 2240-0.877 03/28/2020 523-1.79 03/28/2020 1040-1.69 Hemoglobin 820 7.1 Hemoglobin 821 8.5 Impressions: Chest X-Ray 03/27/20 13:34 IMPRESSION: NO ACUTE RADIOGRAPHIC FINDING IN THE CHEST. Assessment & Plan - Diagnosis (1) Anemia Qualifiers: Anemia type: iron deficiency Iron deficiency anemia type: chronic blood loss Qualified Code(s): D50.0 - Iron deficiency anemia secondary to blood loss (chronic) Is this a current diagnosis for this admission?: Yes Plan: Chronic blood loss anemia probably on account of AV malformations of GI bleeding Patient reports melena Recent embolization procedure for stomach AVMs in October 2019 Given coronary artery disease and continued need for pursuing antiplatelet therapy he may need embolization procedure for the small intestine and colonic AVMs as well. Preferably pursue care in the situation where the expertise is available promptly for such embolization procedures given ongoing chest pain and blood loss anemia. (2) Chest pain Qualifiers: Chest pain type: precordial pain Qualified Code(s): R07.2 - Precordial pain Is this a current diagnosis for this admission?: Yes Plan: Patient with chest pain. Known coronary artery disease with multiple stents. Current presentation with ongoing blood loss anemia suggestive of demand mediated ischemia especially with EKG showing multiple ST depressions Troponin has peaked and is beginning to fall. I would support given him more blood to transfuse him closer to 10 g/dL. Current hemoglobin is at 8.5. I also have initiated Imdur 30 mg daily for relief of ischemic chest pain Continue clopidogrel Trend hemoglobin (3) GI AVM (gastrointestinal arteriovenous vascular malformation) Is this a current diagnosis for this admission?: Yes Plan: Known GI malformations and patient reports embolization procedure for stomach AVMs He would probably benefit from additional embolization procedure or other therapy to take care of these AVMs as continued antiplatelet therapy is necessary (4) CAD (coronary artery disease) Qualifiers: Coronary Disease-Associated Artery/Lesion type: unspecified vessel or lesion type [place] vs. transplanted heart: [place] heart Associated angina: with stable angina Qualified Code(s): I25.118 - Atherosclerotic heart disease of [place] coronary artery with other forms of angina pectoris Is this a current diagnosis for this admission?: Yes Plan: Coronary artery disease with multiple stents Continue clopidogrel 75 mg daily Have started Imdur 30 mg daily Continue low-dose beta-heidi Continue statin - Notes Notes: I discussed this patient's care with Dr. Villavicencio. Presently with ongoing GI bleed and elevating troponin with chest pain makes for difficult situation. The patient continues to bleed and hemoglobin does not stabilize with the blood transfusion this makes for an unstable situation. It is difficult to ascertain if the patient is having type II myocardial isc hemia due to a demand mismatch on account of blood loss anemia versus acute coronary syndrome although I suspect that the former is true. Patient receives all of his coronary care at outside hospital and his GI doctor is also in [place]. It would be preferable for the patient to be transferred to such facility for continued care given the complexity is raised by continued GI bleeding together with elevating troponins and chest pain The above care plan was discussed with the patient and the nursing staff and with Dr. Villavicencio
[2020-03-28] MEDS: TRAMADOL HCL 50 MG TABLET PO PRN ×2 (17:04→23:05)
[2020-03-28 17:35] LABS: ABSOLUTE EOSINOPHILS # (AUTO) 0.2 10^3/uL (0.0-0.6); ABSOLUTE LYMPHOCYTES (AUTO) 0.7 10^3/uL (0.5-4.7); ABSOLUTE MONOCYTES (AUTO) 0.4 10^3/uL (0.1-1.4); BASOPHILS % (AUTO) 0.7 % (0-2); EOSINOPHILS % (AUTO) 3.5 % (0-6); HEMATOCRIT 27.5 % (37.9-51.0); HEMOGLOBIN 9.1 g/dL (13.5-17.0); LYMPHOCYTES % (AUTO) 10.3 % (13-45); MEAN CORPUSCULAR HEMOGLOBIN 28.1 pg (27.0-33.4); MEAN CORPUSCULAR HGB CONC 33.2 g/dL (32.0-36.0); MEAN CORPUSCULAR VOLUME 85 fl (80-97); MONOCYTES % (AUTO) 6.9 % (3-13); PLATELET COUNT 274 10^3/uL (150-450); RED BLOOD COUNT 3.25 10^6/uL (4.35-5.55); RED CELL DISTRIBUTION WIDTH 14.8 % (11.5-14.0); SEGMENTED NEUTROPHILS % (AUTO) 78.6 % (42-78); TOTAL CELLS COUNTED % (AUTO) 100 %; WHITE BLOOD COUNT 6.4 10^3/uL (4.0-10.5)
[2020-03-28] MEDS ORDERED: ACETAMINOPHEN 325 MG TABLET PO PRN (17:55)
--- NOTE | 2020-03-28 18:30 | PDOC PROGRESS REPORT ---
Subjective Progress Note for:: 03/28/20 Subjective:: The patient was seen and examined at bedside. Complained of on and off chest pain this morning relieved by nitroglycerin intake. Denies any shortness of breath palpitations, no abdominal pain, no nausea vomiting. Repeat hemoglobin post 2 units of packed RBC is 8.5, troponin continues to trend up from 0.26, 0.31 then 1.79. No significant EKG changes no ST elevation. Dr. Joss Pete was consulted who recommended 1 more unit of packed RBC and transfer to [facility] for further management in light of ongoing NSTEMI in the setting of GI bleed Reason For Visit: ANENIA SECONDARY TO CHRONIC GI BLEED, ELEVATED Physical Exam Vital Signs: Temp Pulse Resp BP Pulse Ox 98 F 82 22 H 116/63 100 03/28/20 15:00 03/28/20 15:00 03/28/20 15:00 03/28/20 15:00 03/28/20 15:00 Intake & Output 03/27/20 03/28/20 03/29/20 06:59 06:59 06:59 Intake Total 850 870 Output Total 425 Balance 425 870 Weight 82.8 kg General appearance: PRESENT: no acute distress Head exam: PRESENT: atraumatic, normocephalic Eye exam: PRESENT: EOMI, PERRLA Mouth exam: PRESENT: moist Neck exam: PRESENT: full ROM. ABSENT: JVD Respiratory exam: PRESENT: clear to auscultation matthew, symmetrical, unlabored. ABSENT: crackles, rhonchi Cardiovascular exam: PRESENT: RRR, +S1, +S2 - normal. ABSENT: gallop, systolic murmur Pulses: PRESENT: +2 pedal pulses bilateral Vascular exam: PRESENT: normal capillary refill GI/Abdominal exam: PRESENT: normal bowel sounds, soft. ABSENT: guarding, rebound, tenderness Extremities exam: PRESENT: full ROM Musculoskeletal exam: PRESENT: ambulatory Neurological exam: PRESENT: alert, awake, oriented to person, oriented to place, oriented to time Psychiatric exam: PRESENT: normal mood Results Laboratory Results: 03/28/20 17:23 03/28/20 05:23 03/27/20 03/28/20 03/28/20 13:52 02:25 05:23 WBC 5.9 RBC 3.02 L Hgb 8.5 L Hct 25.8 L MCV 85 MCH 28.1 MCHC 33.0 RDW 14.8 H Plt Count 260 Seg Neutrophils % 71.7 Sodium 140.6 Potassium 4.4 Chloride 107 Carbon Dioxide 27 Anion Gap 7 BUN 34 H Creatinine 1.23 Est GFR ( Amer) > 60 Glucose 179 H Calcium 9.5 Blood Type B NEGATIVE Antibody Screen NEGATIVE 03/28/20 17:23 WBC 6.4 RBC 3.25 L Hgb 9.1 L Hct 27.5 L MCV 85 MCH 28.1 MCHC 33.2 RDW 14.8 H Plt Count 274 Seg Neutrophils % 78.6 H Sodium Potassium Chloride Carbon Dioxide Anion Gap BUN Creatinine Est GFR ( Amer) Glucose Calcium Blood Type Antibody Screen 03/27/20 03/27/20 03/27/20 13:52 13:52 16:55 Creatine Kinase 50 L CK-MB (CK-2) 2.14 Troponin I 0.260 0.314 03/27/20 03/28/20 03/28/20 22:40 05:23 05:23 Creatine Kinase 87 CK-MB (CK-2) Troponin I 0.877 1.790 03/28/20 03/28/20 05:23 10:40 Creatine Kinase CK-MB (CK-2) 5.12 H Troponin I 1.690 Impressions: Chest X-Ray 03/27/20 13:34 IMPRESSION: NO ACUTE RADIOGRAPHIC FINDING IN THE CHEST. Assessment and Plan - Diagnosis (1) Symptomatic anemia Is this a current diagnosis for this admission?: Yes Plan: -Admitted with a hemoglobin of 7.1 -Secondary to chronic GI bleeding from multiple AVM -Status post 3 units of packed RBC. His hemoglobin 9.1 -Patient will be transferred to [facility] [place] for further evaluation and management (2) Chest pain Qualifiers: Chest pain type: precordial pain Qualified Code(s): R07.2 - Precordial pain Is this a current diagnosis for this admission?: Yes Plan: -Patient has a history of coronary artery disease recently received 3 stents, currently on Plavix 75 mg daily -Troponin in the ED 0.26 trended up to 1.79 -repeat EKG sinus rhythm no ST elevation -This is likely secondary to demand ischemia due to ongoing blood loss -Continue Plavix -To be transferred to [place] for further management (3) Elevated troponin Is this a current diagnosis for this admission?: Yes Plan: -Has chronically elevated troponin likely secondary to ongoing blood loss - type II demand ischemia -Troponin peaked to 1.79 -Dr. Corby Pete consulted who recommended to start Imdur continue Plavix (4) Diabetes mellitus Qualifiers: Diabetes mellitus type: type 2 Diabetes mellitus termite control service representative insulin use: with termite control service representative use Chronic kidney disease stage: stage 3 (moderate) Is this a current diagnosis for this admission?: Yes Plan: -Continue Lantus 20 units with sliding scale insulin -Accu-Cheks and hypoglycemia protocol -Will hold his oral medications for now (5) CAD (coronary artery disease) Qualifiers: Coronary Disease-Associated Artery/Lesion type: unspecified vessel or lesion type [place] vs. transplanted heart: [place] heart Associated angina: with stable angina Qualified Code(s): I25.118 - Atherosclerotic heart disease of [place] coronary artery with other forms of angina pectoris Is this a current diagnosis for this admission?: Yes Plan: -Recently received 3 stents. On Plavix 75 mg daily. Simvastatin ezetimibe metoprolol, nitroglycerin as needed -Troponin trended up from 0.26 to 1.79 -EKG no ST elevation sinus rhythm -Likely type II demand ischemia from ongoing blood loss -Dr. Corby Pete consulted, started on Imdur. He will be transferred to [place] for further evaluation and management -Continue Plavix - Plan Summary Summary: Transfer to [place] initiated he was accepted awaiting bed, excepting physician Dr. Gaxiola. Reason for transfer ongoing GI bleed in the setting of NSTEMI. - Time Time Spent with patient: 35 or more minutes Medications reviewed and adjusted accordingly: Yes Anticipated Discharge Disposition: Tertiary Anticipated Discharge Timeframe: to be transferred once with bed assignment - Inpatient Certification Medical Necessity: Risk of Complication if Not Cared For in Hospital
[2020-03-28] MEDS ORDERED: INSULIN GLARGINE,HUM.REC.ANLOG 1,000 UNIT/10 ML VIAL (PYX) SUBCUT ONE (22:20)
[2020-03-28] MEDS: INSULIN GLARGINE,HUM.REC.ANLOG 1,000 UNIT/10 ML VIAL SUBCUT SCH (22:21)
--- NOTE | 2020-03-28 23:14 | PDOC DISCHARGE SUMMARY ---
Impression - Admit/DC Date/PCP Admission Date/Primary Care Provider: 03/27/20 16:45 JESU RICO MD Discharge Date: 03/29/20 - Discharge Diagnosis (1) Symptomatic anemia Is this a current diagnosis for this admission?: Yes (2) Chest pain Is this a current diagnosis for this admission?: Yes (3) Elevated troponin Is this a current diagnosis for this admission?: Yes (4) Diabetes mellitus Is this a current diagnosis for this admission?: Yes (5) CAD (coronary artery disease) Is this a current diagnosis for this admission?: Yes - Assessment Summary: Discharge to home no more recurrence of chest pain. HemoGlobin up to 10 - Additional Information Resuscitation Status: Full Code Discharge Diet: Cardiac Discharge Activity: Bedrest Referrals: JESU RICO MD [Primary Care Provider] - Home Medications: Clopidogrel Bisulfate [Plavix 75 mg Tablet] 75 mg PO DAILY 08/28/16 Fenofibrate [Lofibra] 160 mg PO DAILY 08/28/16 Fentanyl [Duragesic 50 Mcg/Hr Transdermal Patch] 1 each TD Q48H 08/28/16 Finasteride [Proscar 5 mg Tablet] 5 mg PO DAILY 08/28/16 Metformin HCl [Glucophage] 1,000 mg PO BID 08/28/16 Milnacipran HCl [Savella] 50 mg PO BID 08/28/16 Pregabalin [Lyrica 100 mg Capsule] 200 mg PO Q8 08/28/16 Sitagliptin Phosphate [Januvia 50 mg Tablet] 100 mg PO DAILY 08/28/16 Tramadol HCl [Ultram 50 mg Tablet] 50 mg PO Q6HP PRN 08/28/16 Insulin Glargine,Hum.rec.anlog [Basaglar Kwikpen U-100] 20 unit SQ DAILY 10/30/19 Nitroglycerin [Nitrostat 0.4 mg (1/150 Gr) Tabs 25/Bottle] 1 tab SL Q5MP PRN 10/30/19 Albuterol Sulfate [Albuterol Sulfate Hfa] 2 puff IH Q4HP PRN 03/27/20 Diclofenac Sodium 2 gm TOP QIDP PRN 03/27/20 Ezetimibe [Zetia 10 mg Tablet] 10 mg PO DAILY 03/27/20 Furosemide [Lasix 20 mg Tablet] 20 mg PO MOFR@0800 03/27/20 Hydroxyzine HCl [Atarax 10 mg Tablet] 25 mg PO QID 03/27/20 Levocetirizine Dihydrochloride [Xyzal] 5 mg PO QHS 03/27/20 Lisinopril [Prinivil 10 mg Tablet] 10 mg PO DAILY 03/27/20 Mirabegron [Myrbetriq] 25 mg PO DAILY 03/27/20 Rosuvastatin Calcium [Crestor] 20 mg PO QHS 03/27/20 Tiotropium [place] [Spiriva Handihaler 5 Cap/Kit (18 Mcg/Cap)] 1 inh IH DAILY 03/27/20 Dextrose 50%-Water [Dextrose Inj 50% Syringe (25 gm/50 ml)] 12.5 gm IV PRN PRN disp.syrin 03/28/20 Dextrose 50%-Water [Dextrose Inj 50% Syringe (25 gm/50 ml)] 25 gm IV PRN PRN disp.syrin 03/28/20 Dextrose [Glutose 40% Gel 15 gm Tube] 15 gm PO PRN PRN tube 03/28/20 Dextrose [Glutose 40% Gel 15 gm Tube] 30 gm PO PRN PRN tube 03/28/20 Glucagon,Human Recombinant [Glucagen Inj 1 mg Vial] 1 mg IM PRN PRN vial 03/28/20 Insulin Glargine,Hum.rec.anlog [Lantus Insulin 100 Unit/1 ml 10 ml] 20 unit SUBCUT QHS unit 03/28/20 Insulin Lispro [Humalog Insulin (Lispro) 100 unit/mL] 0 - 12 unit SUBCUT ACBRKFST unit 03/28/20 Isosorbide Mononitrate [Imdur 30 mg Tablet.er] 30 mg PO DAILY tab.er.24h 03/28/20 History of Present Illiness History of Present Illness: LEIDA BLOUNT is a 74 year old male past medical history of 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 Multiple admissions for GI bleed needing blood transfusion. history of coronary artery disease with stents placed a few months ago currently just on Plavix 75 mg daily. He came in the ED today complaining of body weakness and chest pain that started 3 days prior to admission. Chest pain is on his anterior chest nonradiating, described as burning, not heaviness. Chest pain is relieved by aspirin and nitroglycerin but not completely. According to him he took extra doses of aspirin a few days ago to help with the chest pain. He has chronic melena. He denies any shortness of breath or palpitations. Seen by his sales representative supervisor yesterday and his hemoglobin was noted to be 8.4. Movement in the ED noted to be 7.1. [place] spoke to ED physician who recommended 2 units of packed RBC to be transfused. Troponin noted to be chronically elevated at 0.26 and continued to increase up to 1.79 EKG showed no acute ST elevation. He continued to have chest pain. He received a total of 3 units of packed RBC, hemoglobin 9.1. Cardiology was consulted. Plan was to initially transfer him to [place] due to complex case of GI bleed in the setting of NSTEMI. He has been waiting for a bed to be free for a day and a half Hospital Course Hospital Course: When he was admitted he was noted to have a hemoglobin of 7.1. Troponin 0.26 EKG sinus rhythm no ST elevation. He was given 2 units of packed RBC with improvement of hemoglobin to 8.5. However he continues to have chest pain on the floor and troponin trended up and peaked at 1.79. Cardiology was consulted who recommended transfer to [place] for further management. [facility] accepted him however it has been a day and a half and he still do not have a bed available. Patient's chest pain resolved,troponin trended down to 1.69, his hemoglobin increased to 10.3. Dr. Corby Pete and I decided that he is stable enough to go home and he was advised to follow-up with his regular car diologist as soon as possible Physical Exam Vital Signs: Temp Pulse Resp BP Pulse Ox 97.7 F 83 15 101/51 L 100 03/28/20 20:05 03/28/20 20:05 03/28/20 20:05 03/28/20 20:05 03/28/20 20:05 Intake & Output 03/27/20 03/28/20 03/29/20 06:59 06:59 06:59 Intake Total 850 1610 Output Total 425 Balance 425 1610 Weight 82.8 kg General appearance: PRESENT: no acute distress, cooperative Head exam: PRESENT: atraumatic, normocephalic Eye exam: PRESENT: PERRLA. ABSENT: scleral icterus Mouth exam: PRESENT: moist Neck exam: ABSENT: JVD Respiratory exam: PRESENT: clear to auscultation matthew, symmetrical. ABSENT: accessory muscle use Cardiovascular exam: PRESENT: RRR, +S1, +S2 Pulses: PRESENT: normal carotid pulses, +2 pedal pulses bilateral GI/Abdominal exam: PRESENT: normal bowel sounds, soft. ABSENT: tenderness Rectal exam: PRESENT: deferred Musculoskeletal exam: PRESENT: full ROM Neurological exam: PRESENT: alert, awake, oriented to time Psychiatric exam: PRESENT: normal mood Skin exam: PRESENT: warm Results Laboratory Results: WBC 6.4 10^3/uL (4.0-10.5) 03/28/20 17:23 RBC 3.25 10^6/uL (4.35-5.55) L 03/28/20 17:23 Hgb 9.1 g/dL (13.5-17.0) L 03/28/20 17:23 Hct 27.5 % (37.9-51.0) L 03/28/20 17:23 MCV 85 fl (80-97) 03/28/20 17:23 MCH 28.1 pg (27.0-33.4) 03/28/20 17:23 MCHC 33.2 g/dL (32.0-36.0) 03/28/20 17:23 RDW 14.8 % (11.5-14.0) H 03/28/20 17:23 Plt Count 274 10^3/uL (150-450) 03/28/20 17:23 Lymph % (Auto) 10.3 % (13-45) L 03/28/20 17:23 [place] % (Auto) 6.9 % (3-13) 03/28/20 17:23 Eos % (Auto) 3.5 % (0-6) 03/28/20 17:23 Baso % (Auto) 0.7 % (0-2) 03/28/20 17:23 Absolute Neuts (auto) 5.0 10^3/uL (1.7-8.2) 03/28/20 17:23 Absolute Lymphs (auto) 0.7 10^3/uL (0.5-4.7) 03/28/20 17:23 Absolute Monos (auto) 0.4 10^3/uL (0.1-1.4) 03/28/20 17:23 Absolute Eos (auto) 0.2 10^3/uL (0.0-0.6) 03/28/20 17:23 Absolute Basos (auto) 0.0 10^3/uL (0.0-0.2) 03/28/20 17:23 Seg Neutrophils % 78.6 % (42-78) H 03/28/20 17:23 Sodium 140.6 mmol/L (137-145) 03/28/20 05:23 Potassium 4.4 mmol/L (3.6-5.0) 03/28/20 05:23 Chloride 107 mmol/L (98-107) 03/28/20 05:23 Carbon Dioxide 27 mmol/L (22-30) 03/28/20 05:23 Anion Gap 7 (5-19) 03/28/20 05:23 BUN 34 mg/dL (7-20) H 03/28/20 05:23 Creatinine 1.23 mg/dL (0.52-1.25) 03/28/20 05:23 Est GFR ( Amer) > 60 (>60) 03/28/20 05:23 Est GFR (MDRD) Non-Af 58 (>60) L 03/28/20 05:23 Glucose 179 mg/dL (75-110) H 03/28/20 05:23 POC Glucose 339 mg/dL (70-110) H 03/28/20 22:21 Calcium 9.5 mg/dL (8.4-10.2) 03/28/20 05:23 Total Bilirubin 0.2 mg/dL (0.2-1.3) 03/27/20 13:52 Direct Bilirubin 0.0 mg/dL (0.0-0.4) 03/27/20 13:52 Neonat Total Bilirubin Not Reportable 03/27/20 13:52 Neonat Direct Bilirubin Not Reportable 03/27/20 13:52 Neonat Indirect Bili Not Reportable 03/27/20 13:52 AST 18 U/L (17-59) 03/27/20 13:52 ALT 15 U/L (<50) 03/27/20 13:52 Alkaline Phosphatase 41 U/L (38-126) 03/27/20 13:52 Creatine Kinase 87 U/L (55-170) 03/28/20 05:23 CK-MB (CK-2) 5.12 ng/mL (<4.55) H 03/28/20 05:23 Troponin I 1.690 ng/mL 03/28/20 10:40 Total Protein 6.7 g/dL (6.3-8.2) 03/27/20 13:52 Albumin 4.1 g/dL (3.5-5.0) 03/27/20 13:52 Blood Type B NEGATIVE 03/27/20 13:52 Antibody Screen NEGATIVE 03/27/20 13:52 Crossmatch See Detail 03/27/20 13:52 03/27/20 03/27/20 03/27/20 13:52 16:55 22:40 CK-MB (CK-2) 2.14 Troponin I 0.260 0.314 0.877 03/28/20 03/28/20 03/28/20 05:23 05:23 10:40 CK-MB (CK-2) 5.12 H Troponin I 1.790 1.690 Impressions: Chest X-Ray 03/27/20 13:34 IMPRESSION: NO ACUTE RADIOGRAPHIC FINDING IN THE CHEST. Plan Health Concerns: Chest pain GI bleed Plan of Treatment: He received a total of 3 units packed RBC with increase of hemoglobin to 10.3. Patient was sent home and was told to follow-up with his regular air compressor operator as soon as possible Time Spent: Greater than 30 Minutes Stroke Is this a Stroke Patient?: No Stroke Pt being discharged on Anti-thrombolytic therapy?: No Reason(s) for not prescribing Anti-thrombolytic therapy:: Medical Contraindication Stroke Pt being discharged on Anti-coagulation therapy?: No Reason(s) for not prescribing Anti-coagulation therapy:: Not indicated Stroke Pt being discharged on Statins?: No Reason(s) for not prescribing Statins therapy:: Not indicated Acute Heart Failure - Is this a Heart Failure Patient?: No Documentation of LVEF assessment?: No, Document reason LVEF - Reason: No heart failure LVEF: LVEF Greater Than 40% Anticoagulant Therapy: No, document contraindications Reason(s) not Discharged on Anticoagulant Therapy: Other Anticoagulant Therapy Reason - Other: Not indicated Discharged on Evidence-Based Beta Blockers: No, document contraindications Reason(s) not discharged on Evidence-Based Beta Blockers: Other Beta Audrey Reason - Other: not indicated Discharged on ARNI?: No-Document Contraindications Reason(s) not discharged on ARNI: Other ARNI Reason - Other: Not needed Discharged on ARB?: No-document contraindications Reason(s) not Discharged on ARB: Other ARB Reason - Other: Not needed Discharged on ACEI?: No, document contraindications Reason(s) not Discharged on ACEI: other ACEI Reason - Other: Not needed For LVEF <35%, discharged on Aldosterone Antagonist?: No-document contraincati ons Reason(s) not discharged on Aldosterone Antagonist: Other Aldosterone Antagonist Reason - Other: Not needed Follow-up Appointment scheduled within 7 days?: Yes
[2020-03-29 07:21] LABS: ABSOLUTE BASOPHILS # (AUTO) 0.1 10^3/uL (0.0-0.2); ABSOLUTE EOSINOPHILS # (AUTO) 0.3 10^3/uL (0.0-0.6); ABSOLUTE LYMPHOCYTES (AUTO) 0.9 10^3/uL (0.5-4.7); ABSOLUTE MONOCYTES (AUTO) 0.5 10^3/uL (0.1-1.4); ABSOLUTE NEUT (AUTO) 6.2 10^3/uL (1.7-8.2); BASOPHILS % (AUTO) 0.8 % (0-2); EOSINOPHILS % (AUTO) 4.4 % (0-6); HEMATOCRIT 31.6 % (37.9-51.0); HEMOGLOBIN 10.3 g/dL (13.5-17.0); LYMPHOCYTES % (AUTO) 11.3 % (13-45); MEAN CORPUSCULAR HEMOGLOBIN 28.2 pg (27.0-33.4); MEAN CORPUSCULAR HGB CONC 32.7 g/dL (32.0-36.0); MEAN CORPUSCULAR VOLUME 87 fl (80-97); MONOCYTES % (AUTO) 6.5 % (3-13); PLATELET COUNT 321 10^3/uL (150-450); RED BLOOD COUNT 3.66 10^6/uL (4.35-5.55); RED CELL DISTRIBUTION WIDTH 15.3 % (11.5-14.0); TOTAL CELLS COUNTED % (AUTO) 100 %
[2020-03-29] MEDS: INSULIN LISPRO 100 UNIT/ML 3 ML VIAL SUBCUT SCH (08:35)
[2020-03-29] MEDS: CLOPIDOGREL BISULFATE 75 MG TABLET PO SCH (09:50)
[2020-03-29] MEDS: PANTOPRAZOLE SODIUM 40 MG VIAL IV SCH (09:50)
[2020-03-29] MEDS: ISOSORBIDE MONONITRATE 30 MG TAB.ER.24H PO SCH (09:50)
--- NOTE | 2020-03-29 13:16 | PDOC PROGRESS REPORT ---
Subjective Progress Note for:: 03/29/20 Subjective:: Patient feels well. No more episodes of chest pain. No more dark stool. He received 1 unit of blood transfusion yesterday. His hemoglobin appears to be stable at the moment. Reason For Visit: ANENIA SECONDARY TO CHRONIC GI BLEED, ELEVATED Physical Exam Vital Signs: Temp Pulse Resp BP Pulse Ox 97.8 F 81 16 146/76 H 98 03/29/20 10:00 03/29/20 08:05 03/29/20 08:05 03/29/20 08:05 03/29/20 08:05 Intake & Output 03/28/20 03/29/20 03/30/20 06:59 06:59 06:59 Intake Total 850 1910 Output Total 425 Balance 425 1910 Weight 82.8 kg 82.3 kg General appearance: PRESENT: no acute distress, cooperative, well-developed, well-nourished Head exam: PRESENT: atraumatic, normocephalic Eye exam: PRESENT: conjunctiva pink, EOMI Mouth exam: PRESENT: moist Respiratory exam: PRESENT: symmetrical, unlabored Cardiovascular exam: PRESENT: RRR, +S1, +S2 Pulses: PRESENT: normal radial pulses GI/Abdominal exam: PRESENT: soft Rectal exam: PRESENT: deferred Neurological exam: PRESENT: alert, awake, oriented to person, oriented to place, oriented to time Psychiatric exam: PRESENT: appropriate affect Skin exam: PRESENT: dry, intact, normal color Results Laboratory Results: 03/29/20 06:55 03/28/20 05:23 03/28/20 03/29/20 17:23 06:55 WBC 6.4 8.0 RBC 3.25 L 3.66 L Hgb 9.1 L 10.3 L Hct 27.5 L 31.6 L MCV 85 87 MCH 28.1 28.2 MCHC 33.2 32.7 RDW 14.8 H 15.3 H Plt Count 274 321 Seg Neutrophils % 78.6 H 77.0 03/27/20 03/27/20 03/27/20 13:52 13:52 16:55 Creatine Kinase 50 L CK-MB (CK-2) 2.14 Troponin I 0.260 0.314 03/27/20 03/28/20 03/28/20 22:40 05:23 05:23 Creatine Kinase 87 CK-MB (CK-2) Troponin I 0.877 1.790 03/28/20 03/28/20 05:23 10:40 Creatine Kinase CK-MB (CK-2) 5.12 H Troponin I 1.690 EKG Comments: Hemoglobin repeat this morning 10.3 improved from 9.1 Troponin Peak was 1.79 Yesterday at 10:40 AM the troponin was 1.69 Impressions: Chest X-Ray 03/27/20 13:34 IMPRESSION: NO ACUTE RADIOGRAPHIC FINDING IN THE CHEST. Assessment & Plan - Diagnosis (1) Anemia Qualifiers: Anemia type: iron deficiency Iron deficiency anemia type: chronic blood loss Qualified Code(s): D50.0 - Iron deficiency anemia secondary to blood loss (chronic) Is this a current diagnosis for this admission?: Yes Plan: Likely blood loss anemia given bleeding from AV malformation Supportive care Has responded better to blood transfusion from a symptomatic standpoint Hemoglobin is closer to 10 now than before. This is helpful given coronary artery disease. Watch for bleeding. He may need embolization for continued bl eeding from AV malformation given continued indication for antiplatelet therapy due to coronary stents. (2) Chest pain Qualifiers: Chest pain type: precordial pain Qualified Code(s): R07.2 - Precordial pain Is this a current diagnosis for this admission?: Yes Plan: Resolved. Troponin has begun to decrease. Continue supportive care including clopidogrel statin and beta-heidi. Continue isosorbide mononitrate 30 mg daily (3) GI AVM (gastrointestinal arteriovenous vascular malformation) Is this a current diagnosis for this admission?: Yes Plan: No more bleeding episodes. Patient will need likely further GI work-up and possibly embolization therapy to suppress bleeding from AV malformations. (4) CAD (coronary artery disease) Qualifiers: Coronary Disease-Associated Artery/Lesion type: unspecified vessel or lesion type [place] vs. transplanted heart: [place] heart Associated angina: with stable angina Qualified Code(s): I25.118 - Atherosclerotic heart disease of [place] coronary artery with other forms of angina pectoris Is this a current diagnosis for this admission?: Yes Plan: Chest pain-free at the moment Non-STEMI in the setting of anemia probably type II myocardial infarction given anemia and blood loss rather than acute coronary syndrome Supportive care with continued use of clopidogrel Statin Beta-heidi Continue Imdur - Notes Notes: Awaiting transfer to facility where he usually receives care including cardiac as well as GI care.
[2020-03-29 15:52] VITALS: BP 139/77
== END 2020-03-29 16:04 | disposition home or self-care (01) | DRG 811 ==
LOC: ER 13:15 → INTOOBSV 16:45 → OBSVTOIN 16:45 → EH 16:45 → 3S 18:26 → OBSVTOIN 03-28 09:51
PROVIDERS: ADMIT Internal Medicine; ATTEND Internal Medicine
PROC: 30233N1 Transfusion of Nonautologous Red Blood Cells into Peripheral Vein, Percutaneous Approach (ICD-10-PCS; principal; 2020-03-27)
PROC: 30233N1 Transfusion of Nonautologous Red Blood Cells into Peripheral Vein, Percutaneous Approach (ICD-10-PCS; 2020-03-28)
DX: D50.0 Iron deficiency anemia secondary to blood loss (chronic) (principal); K55.21 Angiodysplasia of colon with hemorrhage; R79.89 Other specified abnormal findings of blood chemistry; R07.2 Precordial pain; I25.10 Atherosclerotic heart disease of native coronary artery without angina pectoris; I10 Essential (primary) hypertension; E11.9 Type 2 diabetes mellitus without complications; N40.0 Benign prostatic hyperplasia without lower urinary tract symptoms; M19.90 Unspecified osteoarthritis, unspecified site; K21.9 Gastro-esophageal reflux disease without esophagitis; Z79.84 Long term (current) use of oral hypoglycemic drugs; Z79.4 Long term (current) use of insulin; Z79.02 Long term (current) use of antithrombotics/antiplatelets; Z95.5 Presence of coronary angioplasty implant and graft; Z85.528 Personal history of other malignant neoplasm of kidney; Z88.2 Allergy status to sulfonamides; Z90.49 Acquired absence of other specified parts of digestive tract; Z87.891 Personal history of nicotine dependence; Z82.49 Family history of ischemic heart disease and other diseases of the circulatory system; Z90.5 Acquired absence of kidney
CPT/HCPCS: 36415; 36430; 71045; 80048; 80053; 82550; 82553; 82962; 84484; 85025; 86850; 86900; 86901; 86920; 93005; 93010; 96374; 99285; C9113; G0378; J1815; J3490; P9016

== ENCOUNTER → 2020-04-23 | Outpatient (CLI) | payer MEDICARE, BC, OTHER ==
[2020-04-23 09:45] LABS: ABSOLUTE EOSINOPHILS # (AUTO) 0.3 10^3/uL (0.0-0.6); ABSOLUTE LYMPHOCYTES (AUTO) 0.7 10^3/uL (0.5-4.7); ABSOLUTE MONOCYTES (AUTO) 0.4 10^3/uL (0.1-1.4); ABSOLUTE NEUT (AUTO) 2.7 10^3/uL (1.7-8.2); BASOPHILS % (AUTO) 0.7 % (0-2); EOSINOPHILS % (AUTO) 7.2 % (0-6); HEMATOCRIT 27.9 % (37.9-51.0); HEMOGLOBIN 9.3 g/dL (13.5-17.0); LYMPHOCYTES % (AUTO) 16.8 % (13-45); MEAN CORPUSCULAR HEMOGLOBIN 29.7 pg (27.0-33.4); MEAN CORPUSCULAR HGB CONC 33.5 g/dL (32.0-36.0); MEAN CORPUSCULAR VOLUME 89 fl (80-97); MONOCYTES % (AUTO) 8.9 % (3-13); PLATELET COUNT 269 10^3/uL (150-450); RED BLOOD COUNT 3.15 10^6/uL (4.35-5.55); RED CELL DISTRIBUTION WIDTH 17.6 % (11.5-14.0); SEGMENTED NEUTROPHILS % (AUTO) 66.4 % (42-78); TOTAL CELLS COUNTED % (AUTO) 100 %
[2020-04-23 09:53] LABS: CHOLESTEROL 106.71 mg/dL (0-200); TRIGLYCERIDES 173 mg/dL (<150)
[2020-04-23 10:05] LABS: DIRECT LDL 58 mg/dL (<100)
[2020-04-23 10:07] LABS: VLDL CHOLESTEROL 34.6 mg/dL (10-31)
== END ==
LOC: OD 08:19
PROVIDERS: ATTEND Family Medicine Geriatric Medicine
DX: E78.5 Hyperlipidemia, unspecified (principal); D64.9 Anemia, unspecified; Z79.899 Other long term (current) drug therapy
CPT/HCPCS: 36415; 80061; 84460; 85025

== ENCOUNTER → 2020-06-24 | Outpatient (CLI) | payer MEDICARE, BC, OTHER ==
[2020-06-24 08:10] LABS: ABSOLUTE BASOPHILS # (AUTO) 0.1 10^3/uL (0.0-0.2); ABSOLUTE EOSINOPHILS # (AUTO) 0.3 10^3/uL (0.0-0.6); ABSOLUTE LYMPHOCYTES (AUTO) 0.8 10^3/uL (0.5-4.7); ABSOLUTE MONOCYTES (AUTO) 0.4 10^3/uL (0.1-1.4); BASOPHILS % (AUTO) 1.1 % (0-2); EOSINOPHILS % (AUTO) 7.5 % (0-6); HEMATOCRIT 32.5 % (37.9-51.0); HEMOGLOBIN 10.8 g/dL (13.5-17.0); LYMPHOCYTES % (AUTO) 17.1 % (13-45); MEAN CORPUSCULAR HEMOGLOBIN 30.1 pg (27.0-33.4); MEAN CORPUSCULAR HGB CONC 33.2 g/dL (32.0-36.0); MONOCYTES % (AUTO) 9.2 % (3-13); PLATELET COUNT 296 10^3/uL (150-450); RED BLOOD COUNT 3.59 10^6/uL (4.35-5.55); RED CELL DISTRIBUTION WIDTH 16.3 % (11.5-14.0); SEGMENTED NEUTROPHILS % (AUTO) 65.1 % (42-78); TOTAL CELLS COUNTED % (AUTO) 100 %; WHITE BLOOD COUNT 4.6 10^3/uL (4.0-10.5)
[2020-06-24 08:14] LABS: MEAN CORPUSCULAR VOLUME 91 fl (80-97)
== END ==
LOC: OD 07:31
PROVIDERS: ATTEND Family Medicine Geriatric Medicine
DX: D64.9 Anemia, unspecified (principal); Z79.899 Other long term (current) drug therapy
CPT/HCPCS: 36415; 85025